=== PATIENT | male | born 1965 | race Caucasian/White ===

== ENCOUNTER 2022-06-24 19:56 | Inpatient (IN) | payer OTHER, BC, SELFPAY ==
[2022-06-24] VITALS (23 sets, daily range): BP systolic 118–141; BP diastolic 71–85; PULSE 69–90; RESP 11–20; TEMP 36.6; O2SAT 100
--- NOTE | ~2022-06-24 | CT_ITS ---
EXAMINATION: CTA abdomen pelvis DATE: 06/25/2022 14:25 INDICATION: Back pain status post cardiac catheterization TECHNIQUE: Computed tomographic angiography (CTA) of the abdomen and pelvis was performed with 100 mL Omnipaque-350 intravenous contrast. Maximum intensity projection 3D-reconstructions of the aorta and other arteries were constructed by the technologist on a separate workstation. The dose-length produ ct (DLP) was 1276.54 mGy-cm. Automated exposure control and iterative reconstruction technique were e mployed. COMPARISON: None. FINDINGS: Minimal dependent atelectasis is present in the lung bases. The heart size is normal. Stone s are present in the nondistended gallbladder. The liver is diffusely low in attenuation when compare d with the spleen, consistent with hepatic steatosis. The spleen, pancreas, and adrenal glands are no rmal. Cysts of the kidneys measure up to 1.5 cm on the left. There is a 1.1 cm soft tissue attenuatio n lesion of the right kidney There is calcified atherosclerosis of the aorta and many of the other ar teries. There is a moderate volume of contrast in the urinary bladder from cardiac catheterization. A catheter is present in the right femoral artery with its tip ending in the abdominal aorta. There is a small amount of infiltration in the right groin soft tissues related to catheterization. There is mild lumbar spondylosis. The celiac axis, superior mesenteric artery, and inferior mesenteric artery are normal at their origi ns. Single renal arteries are present. There is no aneurysm or dissection of the aorta. IMPRESSION: 1. No CT correlate for the patient's symptoms. 2. Cholelithiasis without evidence of cholecystitis. 3. Indeterminate soft tissue attenuation lesion of the right kidney. Follow-up by CT or MRI without a nd with contrast is recommended. Reviewed, dictated and finalized at location A. IMPRESSION: 1. No CT correlate for the patient's symptoms. 2. Cholelithiasis without evidence of cholecystitis. 3. Indeterminate soft tissue attenuation lesion of the right kidney. Follow-up by CT or MRI without and with contrast is recommended.
--- NOTE | ~2022-06-24 | XR_ITS ---
EXAMINATION: XR chest 2V DATE: 06/24/2022 20:41 INDICATION: Chest pain TECHNIQUE: PA and lateral views of the chest were obtained. COMPARISON: None FINDINGS: The lungs are clear with no focal airspace opacities, pulmonary edema, pleural effusion or pneumothor ax. The cardiomediastinal silhouette is normal. Moderate to severe upper thoracic spondylosis. IMPRESSION: 1. No acute cardiopulmonary disease. Reviewed, dictated and finalized at location A.
--- NOTE | 2022-06-24 20:00 | ECG_ITS ---
Measurements Intervals [place] Rate: 85 P: 37 DE: 144 QRS: 14 QRSD: 106 T: -11 QT: 379 QTc: 452 Interpretive Statements SINUS RHYTHM BORDERLINE R WAVE PROGRESSION, ANTERIOR LEADS INFERIOR INFARCT, AGE INDETERMINATE ABNORMAL ECG NO PREVIOUS ECG AVAILABLE FOR COMPARISON Electronically Signed On 06-24-2022 20:16:50 CDT by Cal Warren D.O.
[2022-06-24] MEDS: ASPIRIN 81 MG CHEWABLE TABLET 324 MG PO (21:34)
[2022-06-24 21:35] LABS: Basophils Percent Auto 0.2 % (0.2-1.2); Eosinophils Absolute Auto 0.3 K/mm3 (0-0.3); Eosinophils Percent Auto 4.9 % (0-4.4); Hematocrit 43.9 % (42.0-52.0); Immature Granulocyte Absolute 0.04 K/mm3 (0.00-0.031); Immature Granulocyte Percent A 0.6 % (0-0.5); Lymphocytes Absolute Auto 1.86 K/mm3 (0.9-3.2); Lymphocytes Percent Auto 29.5 % (18.3-44.2); Mean Corpuscular HGB Conc 34.2 g/dl (32-36); Mean Corpuscular Hemoglobin 30.8 pg (26-34); Mean Corpuscular Volume 90.1 fl (80-100); Mean Platelet Volume 9.6 fl (7.4-10.4); Monocytes Absolute Auto 0.6 K/mm3 (0.1-0.6); Monocytes Percent Auto 8.9 % (2.6-8.5); Neutrophils Absolute Auto 3.5 K/mm3 (1.3-6.7); Neutrophils Percent Auto 55.9 % (45.5-73.1); Platelet Count Result 195 k/mm3 (150-375); Red Blood Count 4.87 M/mm3 (4.6-6.20); Red Cell Distribution Width 12.6 % (11.5-14.5); White Blood Count 6.3 K/mm3 (4.5-10.0)
--- NOTE | 2022-06-24 21:38 | ED.CHESTPAIN ---
HPI - Chest Pain General Chief Complaint: Chest Pain Stated Complaint: Chest Pain Time Seen by Provider: 06/24/22 21:16 Source: RN notes reviewed History of Present Illness HPI narrative: Patient presents emergency department from home for chest pain. Patient states that this evening around 6:30 PM he was sitting watching TV when he developed a pressure across his bilateral chest that radiated up into his bilateral jaw states that it was associated with nausea he states the pain is now resolved it lasted for approximately 30 minutes he states that he had no fevers or chills no shortness of breath. Denies any abdominal pain denies history of coronary artery disease but does note a history of a murmur Related Data Allergies Allergy/AdvReac Type Severity Reaction Status Date / Time No Known Allergies Allergy Verified 06/24/22 21:41 Review of Systems Review of Systems: Gen.: Denies fevers or chills ENT: Denies congestion Respiratory: Denies shortness of breath or cough CV: See HPI GI: Denies abdominal pain, emesis or diarrhea nausea Musculoskeletal: Denies back pain or muscle pain Neuro: Denies numbness, tingling, weakness or focal weakness Skin: Denies rash Except as documented, all other systems reviewed and negative [facility] Past Medical History Medical History (Updated 06/24/22 @ 22:37 by Charles Ashley DO) Diabetes mellitus Hypercholesterolemia Hypertension Social History Social History (Updated 06/24/22 @ 21:40 by Charles Ashley DO) Smoking status: Never smoker Exam Narrative: APPEARANCE: No acute distress, nontoxic, resting in bed EYES: EOMI HEENT: Normocephalic, atraumatic, OMM RESPIRATORY: No respiratory distress Clear to auscultation bilaterally with no rhonchi wheezing or rales. CARDIOVASCULAR: Regular rate and rhythm without murmurs rubs or gallops. ABDOMINAL: Soft, nontender, nondistended, no rebound or guarding MUSCULOSKELETAl: Moves all extremities. No clubbing, cyanosis or edema. NEURO: Awake and alert. Following commands, speech normal, no focal deficits SKIN:: Warm, dry. No rashes lesions or abrasions PSYCHIATRIC: Normal affect/mood, Course Course Emergency Course: Discussed with Dr. Brunson for cardiology presentation work-up agrees with consult recommends patient received single dose of Lovenox NPO after midnight Discussed with Dr. Hopen agrees with admission Discussed with patient and family results of workup and diagnosis. Discussed need for admission. Patient and family understand and agree to current treatment plan Vital Signs Vital signs: Vital Signs Temperature 97.8 F 06/24/22 20:13 Pulse Rate 88 06/24/22 20:13 Respiratory Rate 18 06/24/22 20:13 Blood Pressure 139/77 06/24/22 20:13 Pulse Oximetry 100 06/24/22 20:13 Oxygen Delivery Room Air 06/24/22 20:13 Temperature 97.8 F 06/24/22 20:13 Pulse Rate 86 06/24/22 22:15 Respiratory Rate 19 06/24/22 22:15 Blood Pressure 132/83 06/24/22 22:01 Pulse Oximetry 100 06/24/22 20:13 Oxygen Delivery Room Air 06/24/22 21:36 MDM - Chest Pain Lab Data Result diagrams: 06/24/22 21:31 06/24/22 21:31 Labs: Lab Results 06/24/22 06/24/22 06/24/22 Range/Units 21:31 21:31 21:31 WBC 6.3 (4.5-10.0) K/mm3 RBC 4.87 (4.6-6.20) M/mm3 Hgb 15.0 (14.0-18.0) g/dL Hct 43.9 (42.0-52.0) % MCV 90.1 (80-100) fl MCH 30.8 (26-34) pg MCHC 34.2 (32-36) g/dl RDW 12.6 (11.5-14.5) % Plt Count 195 (150-375) k/mm3 MPV 9.6 (7.4-10.4) fl Immature Gran % (Auto) 0.6 H (0-0.5) % Neut % (Auto) 55.9 (45.5-73.1) % Lymph % (Auto) 29.5 (18.3-44.2) % [place] % (Auto) 8.9 H (2.6-8.5) % Eos % (Auto) 4.9 H (0-4.4) % Baso % (Auto) 0.2 (0.2-1.2) % Lymph # (Auto) 1.86 (0.9-3.2) K/mm3 [place] # (Auto) 0.6 (0.1-0.6) K/mm3 Eos # (Auto) 0.3 (0-0.3) K/mm3 Baso # (Auto) 0.0 (0.0-0.1) K/mm3 Abs Immat
--- NOTE | 2022-06-24 21:40 | ECG_ITS ---
Measurements Intervals [place] Rate: 79 P: 43 ME: 158 QRS: 13 QRSD: 94 T: 29 QT: 372 QTc: 428 Interpretive Statements SINUS RHYTHM BORDERLINE R WAVE PROGRESSION, ANTERIOR LEADS CONSIDER INFERIOR INFARCT, AGE INDETERMINATE BASELINE WANDER- AVF ABNORMAL ECG COMPARED TO ECG 06/24/2022 20:06:24 NO SIGNIFICANT CHANGES Electronically Signed On 06-25-2022 7:08:07 CDT by Cal Warren D.O.
[2022-06-24 21:46] LABS: Alanine Aminotransferase 38 U/L (6-50); Alkaline Phosphatase 56 U/L (38-126); Anion Gap 18 mmol/L (8-16); Aspartate Amino Transferase 30 U/L (17-59); Bilirubin,Total 0.5 mg/dL (0.2-1.3); Blood Urea Nitrogen 17 mg/dL (9-20); Calcium 9.7 mg/dL (8.4-10.2); Carbon Dioxide 21 mmol/L (22-30); Chloride 102 mmol/L (98-107); Estimated CRCL calculation 74 ml/min; Estimated Glomerular Filt Rate > 60; Glucose 190 mg/dL (65-110); Lipase 100 U/L (23-300); Potassium 3.6 mmol/L (3.4-5.0); Sodium 141 mmol/L (137-145)
[2022-06-24 21:49] LABS: INR 1.1; Partial Thromboplastin Time 28.8 SECONDS (22.3-36.8); Prothrombin Time 13.6 Seconds (11.1-14.7)
[2022-06-24 22:02] LABS: Troponin I 0.045 ng/mL (0.000-0.034)
[2022-06-24 22:48] LABS: SARS-CoV-2 RNA PCR Negative
[2022-06-24] MEDS: ENOXAPARIN 100 MG/ML SYRINGE 90 MG SUB-Q (22:50)
[2022-06-24 23:31] LABS: Troponin I 0.087 ng/mL (0.000-0.034)
[2022-06-25] VITALS (48 sets, daily range): BP systolic 99–134; BP diastolic 59–88; PULSE 54–89; RESP 10–20; TEMP 36.3–37.1; O2SAT 92–100; BMI 30.3; BMI 28.5
--- NOTE | 2022-06-25 01:36 | ADMGEN ---
This patient, Johanna Barbosa, was admitted to IMU Room 209-01 at 0136. Patient/family oriented to hospital policies and general routines including ID bracelet, bed and alarms, visiting hours, pain management, procedures, bathroom and other care routines, personal items, smoking policy, room service/diet, and visiting hours. Information on how to activate the Rapid Response Team has been discussed. Patient/Family are encouraged to report perceived risks to care and to ask questions if they do not understand what they are told or what they should do.
[2022-06-25 04:18] LABS: Basophils Percent Auto 0.2 % (0.2-1.2); Eosinophils Absolute Auto 0.3 K/mm3 (0-0.3); Eosinophils Percent Auto 5.1 % (0-4.4); Hematocrit 38.9 % (42.0-52.0); Hemoglobin 13.5 g/dL (14.0-18.0); Immature Granulocyte Absolute 0.04 K/mm3 (0.00-0.031); Immature Granulocyte Percent A 0.7 % (0-0.5); Lymphocytes Absolute Auto 1.93 K/mm3 (0.9-3.2); Lymphocytes Percent Auto 35.4 % (18.3-44.2); Mean Corpuscular HGB Conc 34.7 g/dl (32-36); Mean Corpuscular Hemoglobin 31.1 pg (26-34); Mean Corpuscular Volume 89.6 fl (80-100); Mean Platelet Volume 9.7 fl (7.4-10.4); Monocytes Absolute Auto 0.5 K/mm3 (0.1-0.6); Monocytes Percent Auto 9.2 % (2.6-8.5); Neutrophils Absolute Auto 2.7 K/mm3 (1.3-6.7); Neutrophils Percent Auto 49.4 % (45.5-73.1); Platelet Count Result 181 k/mm3 (150-375); Red Blood Count 4.34 M/mm3 (4.6-6.20); Red Cell Distribution Width 12.6 % (11.5-14.5); White Blood Count 5.5 K/mm3 (4.5-10.0)
[2022-06-25 04:28] LABS: Alanine Aminotransferase 32 U/L (6-50); Albumin Level 3.9 g/dL (3.5-5.1); Alkaline Phosphatase 52 U/L (38-126); Anion Gap 9 mmol/L (8-16); Aspartate Amino Transferase 26 U/L (17-59); Bilirubin,Total 0.4 mg/dL (0.2-1.3); Blood Urea Nitrogen 17 mg/dL (9-20); Calcium 8.9 mg/dL (8.4-10.2); Carbon Dioxide 23 mmol/L (22-30); Chloride 104 mmol/L (98-107); Estimated CRCL calculation 81 ml/min; Estimated Glomerular Filt Rate > 60; Glucose 170 mg/dL (65-110); Potassium 3.8 mmol/L (3.4-5.0); Sodium 136 mmol/L (137-145)
[2022-06-25 04:42] LABS: Troponin I 0.122 ng/mL (0.000-0.034)
--- NOTE | 2022-06-25 04:46 | PM.IMHP ---
H&P: HPI History of Present Illness Date/Time: 06/25/22 04:46 Chief Complaint: Chest pain Narrative: 57-year-old male with past medical history of essential hypertension, hyperlipidemia, and type 2 diabetes mellitus who presented to the ER with chest pain. The patient reports that he was sitting and watching TV around 18:30 when he began having discomfort and is bilateral neck. This discomfort was also associated with some chest discomfort. The pain felt similar to when he would have indigestion in his abdomen but it was more up in his chest. He reports that the pain radiated at up into his bilateral old jaw has and was associated with some nausea. He denied any diaphoresis. The symptoms lasted for about 30 minutes and resolved shortly after he arrived the ER. He had never had any episodes of chest pain prior. He does have a history of a heart murmur that was discovered a few years ago his last echocardiogram was a couple of years ago. He does not remember which valve is causing his heart murmur. He denies history of CHF. he does have diabetes but does not know what his most recent hemoglobin A1c was. His hemoglobin A1c was checked this past week at the [facility] in [place]. 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 His physical did not include a stress test. He denies any eliciting or relieving factors for his discomfort. He recently had a sleep study which demonstrated moderate obstructive sleep apnea. He is waiting to receive his CPAP from the [place]. He denies any known complications from diabetes such as diabetic peripheral neuropathy or retinopathy. Review of Systems Review of Systems: 12 systems were reviewed with pertinent positives and negatives per HPI. Except as documented in the HPI, all other systems were reviewed and are negative. [facility] Past Medical History Medical History (Updated 06/25/22 @ 04:56 by Beatris Fox DO) Depression Diabetes mellitus Erectile dysfunction GERD (gastroesophageal reflux disease) Hypercholesterolemia Hypertension Obstructive sleep apnea PTSD (post-traumatic stress disorder) Surgical History Surgical History (Updated 06/25/22 @ 04:52 by Beatris Fox DO) History of appendectomy History of colonoscopy with polypectomy History of dental surgery Dental implants Family History Family History Father Myocardial infarct, Onset Age: 75 Mother COPD (chronic obstructive pulmonary disease) Smoking Cor pulmonale, chronic Hernia Diabetes mellitus Knee joint replacement by other means Hip joint replacement status Asthma CHF (congestive heart failure) Social History Social History (Updated 06/25/22 @ 07:54 by Beatris Fox DO) Social History: The patient worked as a [employer] before he moved on to the [employer]. He retired from the [employer] October 2021. He served in the [employer] for 27 years but retired May 27, 2022. He is and has a son who is 25 and her daughter was 20. He smoked 1 pack of cigarettes per week for approximately 9 years but quit smoking at the age 25. He drinks 2 beers a couple of times a week. Denies any illicit substance use. Code status: Full code Surrogate decision maker: Faye () Smoking status: Never smoker Alcohol intake: current Drinks per week: 2 Substance use: never Spiritual care concerns: No Comments Her the patient reports that his mother medical problems were all related to her dental treatment coordinator when she lived in [place] during World War 2 and had to live under ground. She ended up with cor pulmonale due to her lung disease from environmental exposures. Meds Home Medications and Allergies Home Medications Medication Instructions Recorded Confirmed Type acetaminophen 500 mg tablet 1,000 mg PO BID 06/25/22 06/25/22 History (Acetaminophen Extra
--- NOTE | 2022-06-25 05:45 | PC.NURSE ---
I HAVE MONITORED THE MEDICATION DISPENSING AND CHARTING DONE BY ONEL FAYE RN LICENSE PENDING AND I AGREE WITH EVERYTHING.
--- NOTE | 2022-06-25 08:46 | PM.CNCAR ---
Assessment and Plan Assessment and plan (1) Non-ST elevation [place] (NSTEMI): Code(s): I21.4 - Non-ST elevation (NSTEMI) myocardial infarction Status: Acute Plan This is a 57-year-old man who has no overt history of coronary disease in the past but has risk factors obviously including hypertension diabetes and dyslipidemia. He quit smoking many years ago. There is no family history of premature coronary disease. Because of his modest troponin rise he should undergo an ischemic evaluation with a coronary angiogram in my opinion. He understands this and is agreeable. I will get this procedure on the schedule for later today. Further recommendations will be pending those findings Da Stringer MD [facility] History of Present Illness History of Present Illness Consult date/time: 06/25/22 08:46 Consult reason: chest pain Reason For Visit: NSTEMI Narrative: This is a 57-year-old man I am seeing this morning at the request of the hospitalist because of what appears to be evidence of acute coronary syndrome. The patient is a comfortable this morning and offers no complaints. He reports that he came to the hospital last evening because of some chest and jaw pain that occurred while he was at home. He was simply at home seated relaxing watching television while his was preparing dinner. He began to experience a central substernal pain that he has to describes as a burning sensation shortly after that there was radiation of the pain up into the jaw. He states the jaw pain was rather severe. There was no associated diaphoresis shortness of breath or radiation of the pain anywhere else. The discomfort waxed and waned for a little while finally he informed his about the symptoms he tried taking some antacids with not much relief later a short time he came to the emergency room for evaluation. Apparently by the time he got here the symptoms had resolved spontaneously. His electrocardiogram was normal in the emergency room his troponin level initially was essentially normal at but has risen slightly to 0.1. He was given some Lovenox last night and in that setting I am seeing him in consultation this morning. The patient again denies any significant history of coronary disease he does state that his physician who is up in [place] has told him that he has a cardiac murmur but has not made a significant issue out of that. He does have a history of hypertension non insulin-dependent diabetes and dyslipidemia. He reached just retired a couple of weeks ago from a career in the [employer]. His medical care has been at the [facility] up in [place]. Review of Systems Constitutional: Constitutional: Reports no additional constitutional complaints Eyes: Eyes: Reports no additional eye complaints ENT: Reports system reviewed and no additional complaints, except as documented Cardiovascular: Cardiovascular: Reports as per HPI Respiratory: Respiratory: Reports no additional respiratory complaints Gastrointestinal: Gastrointestinal: Reports no additional gastrointestinal complaints Musculoskeletal: Musculoskeletal: Reports no additional musculoskeletal complaints Integumentary/Breasts: Skin/Breast: Reports system reviewed and no additional complaints, except as docu Neurologic: Reports system reviewed and no additional complaints, except as documented Endocrine: Endocrine: Reports no additional endocrine complaints Hematologic/Lymphatic: Hematologic/Lymphatic: Reports no additional hematologic/lymphatic complaints Allergic/Immunologic: Allergic/Immunologic: Reports no additional allergic/immunologic complaints [facility] Past Medical History Medical History (Updated 06/25/22 @ 04:56 by Beatris Fox DO) Depression Diabetes mellitus Erectile dysfunction GERD (gastroesophageal reflux disease) Hypercholesterolemia Hypertension Obstructive sleep apnea PTSD (post-traumatic stress disorder) Surgical History Surgical Histo
[2022-06-25 09:29] LABS: Glucose Point of Care 183 mg/dl (65-105)
--- NOTE | 2022-06-25 10:49 | WPDMODSED ---
Moderate Sedation Note-Pt Data Patient Data Diagnosis: Acute coronary syndrome Present Complaint: episode of chest and jaw pain last evening Procedure to be performed/Plan: left heart catheterization Allergies Allergy/AdvReac Type Severity Reaction Status Date / Time No Known Allergies Allergy Verified 06/24/22 21:41 Home Medications Medication Instructions Recorded Confirmed Type acetaminophen 500 mg tablet 1,000 mg PO BID 06/25/22 06/25/22 History (Acetaminophen Extra Strength) amlodipine 10 mg tablet 10 mg PO DAILY 06/25/22 06/25/22 History atorvastatin 40 mg tablet 40 mg PO HS 06/25/22 06/25/22 History empagliflozin 25 mg tablet 25 mg PO DAILY 06/25/22 06/25/22 History lisinopril 40 mg tablet 40 mg PO DAILY 06/25/22 06/25/22 History metformin 1,000 mg tablet 1,000 mg PO BIDWMEAL 06/25/22 06/25/22 History omeprazole 20 mg capsule,delayed 20 mg PO DAILY 06/25/22 06/25/22 History release pioglitazone 45 mg tablet 45 mg PO DAILY 06/25/22 06/25/22 History sertraline 100 mg tablet 100 mg PO DAILY 06/25/22 06/25/22 History sildenafil 100 mg tablet 100 mg PO DAILY PRN Sexual Activity 06/25/22 06/25/22 History tadalafil 10 mg tablet 10 mg PO DAILY PRN Sexual Activity 06/25/22 06/25/22 History trazodone 100 mg tablet 100 mg PO HS 06/25/22 06/25/22 History Current Medications: Active Medications Acetaminophen (Acetaminophen 500 Mg Tablet) 1,000 mg PO BID [facility] Amlodipine Besylate (Amlodipine Besylate 5 Mg Tablet) 10 mg PO DAILY [facility] Aspirin (Aspirin 81 Mg Enteric Tablet) 81 mg PO QAM [facility] Atorvastatin Calcium (Atorvastatin 40 Mg Tablet) 40 mg PO HS [facility] Dextrose (Dextrose 50% 25 Gm/50 Ml Syringe) 12.5 gm IV PUSH PRN PRN; Protocol PRN Reason: Hypoglycemia Empagliflozin (Empagliflozin 25 Mg Tablet) 25 mg PO DAILY [facility] Glucagon (Glucagon For Inj 1 Mg Vial) 1 mg IM PRN PRN; Protocol PRN Reason: Hypoglycemia Glucose (Glucose Oral Gel 15 Gm Of Glucse In 37.5 Gm Tube) 15 gm PO PRN PRN; Protocol PRN Reason: Hypoglycemia Dextrose (Dextrose 5% 1,000 Ml) 1,000 mls @ 100 mls/hr IVPB PRN PRN; Protocol PRN Reason: Hypoglycemia Insulin Aspart (Insulin Aspart (*Bkc) 100 Units/Ml) 3 - 6 units SUB-Q TIDWM [facility]; Protocol Last Admin: 06/25/22 09:39 Dose: Not Given Lisinopril (Lisinopril 20 Mg Tablet) 40 mg PO DAILY [facility] Metformin HCl (Metformin Hcl 500 Mg Tablet) 1,000 mg PO BIDWM [facility] Last Admin: 06/25/22 09:41 Dose: Not Given Pantoprazole Sodium (Pantoprazole 40 Mg Tablet) 40 mg PO QAM [facility] Pioglitazone HCl (Pioglitazone Hcl 45 Mg Tablet) 45 mg PO DAILY [facility] Sertraline HCl (Sertraline Hcl 50 Mg Tablet) 100 mg PO DAILY [facility] Trazodone HCl (Trazodone Hcl 50 Mg Tablet) 100 mg PO HS [facility] Sedation/Anesthesia: No previous sedation/anesthesia problems (including family history). [facility] Past Medical History Medical History (Updated 06/25/22 @ 04:56 by Beatris Fox DO) Depression Diabetes mellitus Erectile dysfunction GERD (gastroesophageal reflux disease) Hypercholesterolemia Hypertension Obstructive sleep apnea PTSD (post-traumatic stress disorder) Surgical History Surgical History (Updated 06/25/22 @ 04:52 by Beatris Fox DO) History of appendectomy History of colonoscopy with polypectomy History of dental surgery Dental implants Family History Family History (Updated 06/25/22 @ 07:56 by Beatris Fox DO) Father Myocardial infarct, Onset Age: 75 Mother COPD (chronic obstructive pulmonary disease) Smoking Cor pulmonale, chronic Hernia Diabetes mellitus Knee joint replacement by other means Hip joint replacement status Asthma CHF (congestive heart failure) Social History Social History (Updated 06/25/22 @ 07:54 by Beatris Fox DO) Social History: The patient worked as a [employer] before he moved on to the [employer]. He retired from the [employer] October 2021. He served in the [email or web address] for 27 years but retired May 27, 2022. He is and bledsoe
--- NOTE | 2022-06-25 12:43 | ECG_ITS ---
Measurements Intervals [place] Rate: 57 P: 52 [place]: 161 QRS: 9 QRSD: 91 T: -11 QT: 418 QTc: 410 Interpretive Statements SINUS BRADYCARDIA DELAYED PRECORDIAL R/S TRANSITION CONSIDER INFERIOR INFARCT, AGE INDETERMINATE ABNORMAL ECG COMPARED TO ECG 06/24/2022 21:59:07 HEART RATE HAS DECREASED Electronically Signed On 06-25-2022 13:35:19 CDT by Cal Warren D.O.
--- NOTE | 2022-06-25 12:49 | WPDCARDPROC ---
Cardiac Cath Procedure Note Date of procedure:: 06/25/22 Performing physician:: Da Stringer MD Indication:: acute coronary syndrome Brief clinical history:: this is a 57-year-old man with hypertension diabetes and dyslipidemia who entered the hospital with several episodes of ischemic type chest pain. Electrocardiogram for had no significant abnormalities there was a very modest troponin rise. In this setting angiography was recommended. Procedure Procedure performed:: Left ventriculogram coronary angiogram PCI withDES to the proximal right coronary artery and PTCA to the distal right coronary artery Sedation/Medication given:: fentanyl 50 mg Versed 2 mg Zofran 4 mg case start time 10:58 a.m. case end time 12:38 p.m. Access site:: right femoral artery Estimated blood loss:: 100 cc Procedure note:: patient was brought to the cardiac catheterization lab in the postabsorptive state where the right femoral triangle was prepped and. Anesthesia was provided with 1% lidocaine infiltrated locally. Using the modified Seldinger technique the right femoral artery was punctured and a 5 Polish vascular sheath was placed. After this I used a 5 Polish angled pigtail catheter to document left-sided hemodynamics and to perform a left ventriculogram in the [place] projection. Following this I used a standard 5 Polish FL4 catheter to engage and inject the left coronary artery in multiple projections. Following this attempts to advance the right coronary catheter resulted in some resistance in the abdominal aorta. I ended up using a long exchange wire exchanging to a 5 Polish 45 cm sheath which then allowed the right coronary catheter to be easily advanced to the ascending aorta and used for right coronary angiography. Following this the cineangiograms were reviewed and PCI of the right coronary artery was recommended. Prior to PCI I used a guidewire to exchange for a 45 cm 6 Polish sheath. The patient received aspirin and then 600 mg of oral clopidogrel. He was anticoagulated with a bolus bivalirudin for this intervention. The intervention took place as described below. The sheath was then sutured into position the patient was taken to the holding area in stable condition. There was no evidence of groin hematoma upon the cardiac catheterization lab. Findings:: Hemodynamics: Central aortic pressure was 146/82 left ventricle 146 over for end-diastolic pressure 12 there is no gradient on pullback across the aortic valve. Left ventricle: The LV appears to be normal in size all segments contract appropriately the global ejection fraction measures to be 55-60% by visual estimation. Prior to angiography it is clear that both left and right coronary arteries are significantly calcified vessels. The left main coronary artery is medium in caliber and widely patent the left anterior descending is a large caliber vessel extending down to around the apex providing a significant amount of the inferior wall as well. There is mild irregularity in the LAD but no more than 20-30% stenosis in the midportion of the artery. The circumflex is a moderate caliber vessel giving rise to a very high proximal major OM breath branch after this there is AV groove portion of the circumflex and then a more distal posterior branch. There is an eccentric stenosis in the proximal circumflex which appears to be about 70% stenosis in the [place] projections. in the straight caudal projection there appears to be greater than 90% stenosis immediately after the 1st OM branch takes its origin. The right coronary artery is medium in caliber and dominant to the posterior wall. The RPDA is relatively small going to the long LAD described above. There is high-grade stenosis of 99% in the 3rd portion of the right coronary artery. The proximal and ostial segment of the right coronary has moderate 60% stenosis. The proximal portion of the vessel is also
--- NOTE | 2022-06-25 14:00 | SUR.PHASEII ---
spoke with dr jose about patient's back pain, orders for michael for fentanyl place, as well as a CT of abdomen and aorta. patient placed on transport monitor and traveled via bed, [facility] flat, with rn x3. angiomax infusing w/ out issues. sheath wnl
[2022-06-25] MEDS: fentaNYL CITRATE INJ (*CRX) 100 MCG/2 ML VIAL 50 MCG IV PUSH (14:05)
[2022-06-25] MEDS: ACETAMINOPHEN 500 MG TABLET 1000 MG PO (14:05)
[2022-06-25] MEDS: SODIUM CHLORIDE 0.9% IV 1,000 ML 125 ML IV CONT (14:30)
--- NOTE | 2022-06-25 17:20 | PC.NURSE ---
Spoke with Dr. Zavala regarding patient's back pain. Pt will be on bedrest lying flat until 2300 per post-cath orders. New order for [place] 5mg PO q4h PRN for pain.
--- NOTE | 2022-06-25 17:25 | PC.NURSE ---
Pt returned from [facility] via bed.
--- NOTE | 2022-06-25 17:43 | PCRCNOTE ---
Pt. was going to try one of our CPAP machines tonight but changed his mind. He had a sleep study recently but does not have a machine at home yet.
[2022-06-25] MEDS: HYDROcodone/acetaminophen (*CRX) 5-325 MG TABLET 1 TAB PO (17:50)
[2022-06-25] MEDS: PIOGLITAZONE HCL 45 MG TABLET PO (17:51)
[2022-06-25] MEDS: PANTOPRAZOLE 40 MG TABLET PO (17:51)
[2022-06-25] MEDS: SERTRALINE HCL 50 MG TABLET 100 MG PO (17:51)
[2022-06-25] MEDS: lisinopriL 20 MG TABLET 40 MG PO (17:51)
[2022-06-25] MEDS: EMPAGLIFLOZIN 25 MG TABLET PO (17:52)
[2022-06-25] MEDS: metFORMIN HCL 500 MG TABLET 1000 MG PO (17:52)
[2022-06-25 18:14] LABS: Glucose Point of Care 145 mg/dl (65-105)
[2022-06-25 20:45] LABS: Glucose Point of Care 194 mg/dl (65-105)
[2022-06-25] MEDS: ATORVASTATIN 40 MG TABLET 80 MG PO (21:17)
[2022-06-25] MEDS: METOPROLOL TARTRATE 50 MG TAB PO (21:18)
[2022-06-25] MEDS: traZODone HCL 50 MG TABLET 100 MG PO (21:19)
--- NOTE | 2022-06-25 23:16 | PC.NURSE ---
Patient bedrest is complete. Ambulated to the bathroom without difficulty. Rt. groin remains dry, no hematoma. Tolerated well, denies pain.
[2022-06-26] VITALS (9 sets, daily range): BP systolic 99–107; BP diastolic 51–63; PULSE 51–75; RESP 12–16; TEMP 36.1–36.6; O2SAT 95–100
--- NOTE | 2022-06-26 05:11 | ECG_ITS ---
Measurements Intervals [place] Rate: 66 P: 63 KS: 157 QRS: 9 QRSD: 105 T: -13 QT: 419 QTc: 441 Interpretive Statements SINUS RHYTHM POSSIBLE INFERIOR MYOCARDIAL INFARCTION , OF INDETERMINATE AGE [30 ms Q WAVE IN II/aVF] DELAYED PRECORDIAL R/S TRANSITION COMPARED TO ECG 06/25/2022 13:06:57 SINUS RHYTHM NOW PRESENT Electronically Signed On 06-26-2022 20:21:26 CDT by Alhaji Curry M.D.
[2022-06-26 09:10] LABS: Glucose Point of Care 159 mg/dl (65-105)
[2022-06-26] MEDS: metFORMIN HCL 500 MG TABLET 1000 MG PO (09:14)
[2022-06-26] MEDS: ACETAMINOPHEN 500 MG TABLET 1000 MG PO (09:15)
[2022-06-26] MEDS: METOPROLOL TARTRATE 50 MG TAB PO (09:16)
[2022-06-26] MEDS: PANTOPRAZOLE 40 MG TABLET PO (09:17)
[2022-06-26] MEDS: EMPAGLIFLOZIN 25 MG TABLET PO (09:18)
[2022-06-26] MEDS: SERTRALINE HCL 50 MG TABLET 100 MG PO (09:18)
[2022-06-26] MEDS: lisinopriL 20 MG TABLET 40 MG PO (09:18)
[2022-06-26] MEDS: ASPIRIN 81 MG CHEWABLE TABLET PO (09:19)
[2022-06-26] MEDS: PIOGLITAZONE HCL 45 MG TABLET PO (09:20)
[2022-06-26] MEDS: CLOPIDOGREL BISULFATE 75 MG TABLET PO (10:34)
[2022-06-26 12:50] LABS: Glucose Point of Care 174 mg/dl (65-105)
--- NOTE | 2022-06-26 14:28 | PM.DS ---
DS: Admitting Diagnosis Discharge Date 06/26/2022 Admitting Diagnosis Chest pain DS: Discharge Diagnosis Discharge Diagnosis (1) Non-ST elevation [place] (NSTEMI): Code(s): I21.4 - Non-ST elevation (NSTEMI) myocardial infarction Status: Acute Assessment and Plan: Patient received therapeutic Lovenox and full-dose aspirin in the ER. Cardiology has been consulted. Troponins are still trending up gradually. Patient will be NPO until evaluated by Cardiology for possible procedure. (2) Diabetes mellitus: Qualifiers: Diabetes mellitus type: type 2 Diabetes mellitus penitentiary insulin use: without terminal manager use Diabetes mellitus complication status: with circulatory complication Diabetes mellitus complication detail: with other circulatory complications Qualified Code(s): E11.59 - Type 2 diabetes mellitus with other circulatory complications Code(s): E11.9 - Type 2 diabetes mellitus without complications Status: Acute Assessment and Plan: Patient has evidence of a non STEMI and has concurrent hyperglycemia. Patient on benefit from titration of his hypoglycemic agents as outpatient. Patient has a hemoglobin A1c that is pending from outpatient labs with the [place]. while the patient is hospitalized the patient will be placed on sliding scale insulin, Accu-Cheks and hypoglycemia protocol. (3) Hypercholesterolemia: Code(s): E78.00 - Pure hypercholesterolemia, unspecified Status: Acute Assessment and Plan: Lipid panel has been ordered with a.m. labs. Will continue home atorvastatin. (4) Hypertension: Code(s): I10 - Essential (primary) hypertension Status: Acute Assessment and Plan: Blood pressure stable well controlled continue home Norvasc and lisinopril. Plan Patient has been admitted as observation status. DS: Summary Hospital Course Reason for hospitalization: Chest pain Narrative: 57-year-old male with past medical history of essential hypertension, hyperlipidemia, and type 2 diabetes mellitus who presented to the ER with chest pain.? The patient reports that he was sitting and watching TV around 18:30 when he began having discomfort and is bilateral neck.? This discomfort was also associated with some chest discomfort.? The pain felt similar to when he would have indigestion in his abdomen but it was more up in his chest.? He reports that the pain radiated at up into his bilateral old jaw has and was associated with some nausea.? He denied any diaphoresis.? The symptoms lasted for about 30 minutes and resolved shortly after he arrived the ER.? He had never had any episodes of chest pain prior.? He does have a history of a heart murmur that was discovered a few years ago his last echocardiogram was a couple of years ago.? He does not remember which valve is causing his heart murmur.? He denies history of CHF.? he does have diabetes but does not know what his most recent hemoglobin A1c was.? His hemoglobin A1c was checked this past week at the [facility] in [place].? He reports that he had a full physical as part of his discharge from the [facility] last week.? His physical did not include a stress test.? He denies any eliciting or relieving factors for his discomfort. He recently had a sleep study which demonstrated moderate obstructive sleep apnea.? He is waiting to receive his CPAP from the [place]. He denies any known complications from diabetes such as diabetic peripheral neuropathy or retinopathy. Hospital Course: 57-year-old male with history of diabetes, hypertension presented emergency department with complaint chest patient had elevated tropes there was no significant change on EKG seen by patient services coordinator commended cardiac catheterization which showed patient has significant coronary artery disease angioplasty and stent was placed, patient remains clinically stable has no new complaint will discharge the patient today, please, reviewed
== END 2022-06-26 15:52 | disposition home or self-care (01) | DRG 247 ==
LOC: ANHED 22:37 → ANHIMU 06-25 01:04
PROVIDERS: Specialist; Admitting Provider Internal Medicine; Emergency Provider Emergency Medicine; Visit Provider Family Medicine
PROC: 4A023N7 Measurement of Cardiac Sampling and Pressure, Left Heart, Percutaneous Approach (ICD-10-PCS; CPT 93452; principal; 2022-06-25 11:00)
PROC: 027034Z Dilation of Coronary Artery, One Artery with Drug-eluting Intraluminal Device, Percutaneous Approach (ICD-10-PCS; 2022-06-25 11:00)
DX: I21.4 Non-ST elevation (NSTEMI) myocardial infarction (principal); I25.10 Atherosclerotic heart disease of native coronary artery without angina pectoris; I10 Essential (primary) hypertension; E78.00 Pure hypercholesterolemia, unspecified; E11.9 Type 2 diabetes mellitus without complications; K21.9 Gastro-esophageal reflux disease without esophagitis; G47.33 Obstructive sleep apnea (adult) (pediatric); F32.A Depression, unspecified; F43.10 Post-traumatic stress disorder, unspecified; Z20.822 Contact with and (suspected) exposure to COVID-19; Z86.010 Personal history of colon polyps; Z87.891 Personal history of nicotine dependence
CPT/HCPCS: 36415; 71046; 74174; 80053; 82948; 83690; 84484; 85025; 85610; 85730; 93005; 93458; 96372; 99291; A9270; C1725; C1769; C1874; C1887; C1894; C9600; C9803; G0378; J0583; J1644; J1650; J2250; J2405; J3010; J7030; J7040; Q9967; U0003; U0005

== ENCOUNTER 2022-08-22 15:55 | Emergency (ER) | payer BC, OTHER, SELFPAY ==
--- NOTE | 2022-08-22 16:55 | ED.URI ---
HPI - URI/Sore Throat General Chief Complaint: Upper Respiratory Infection Stated Complaint: Fever, Sinus Time Seen by Provider: 08/22/22 16:55 Source: patient and RN notes reviewed Mode of arrival: ambulatory Limitations: no limitations History of Present Illness HPI Narrative: 57 y/o male presented for c/o fatigue, body aches, mild sinus congestion, cough, fever/chills. Onset yesterday. Endorses family is sick with similar symptoms, nephew tested positive for flu and RSV today. Denies sob, wheezing, n/v/d. Taking Mucinex. Tested negative for COVID this morning. Cardiac stent placed 06/2022 MD elicited complaint: cough Related Data Home Medications Medication Instructions Recorded Confirmed acetaminophen 500 mg tablet 1,000 mg PO BID 06/25/22 08/22/22 (Acetaminophen Extra Strength) amlodipine 10 mg tablet 10 mg PO DAILY 06/25/22 08/22/22 atorvastatin 40 mg tablet 40 mg PO HS 06/25/22 08/22/22 empagliflozin 25 mg tablet 25 mg PO DAILY 06/25/22 08/22/22 lisinopril 40 mg tablet 40 mg PO DAILY 06/25/22 08/22/22 metformin 1,000 mg tablet 1,000 mg PO BIDWMEAL 06/25/22 08/22/22 omeprazole 20 mg capsule,delayed 20 mg PO DAILY 06/25/22 08/22/22 release pioglitazone 45 mg tablet 45 mg PO DAILY 06/25/22 08/22/22 sertraline 100 mg tablet 100 mg PO DAILY 06/25/22 08/22/22 sildenafil 100 mg tablet 100 mg PO DAILY PRN Sexual Activity 06/25/22 08/22/22 tadalafil 10 mg tablet 10 mg PO DAILY PRN Sexual Activity 06/25/22 08/22/22 trazodone 100 mg tablet 200 mg PO HS 06/25/22 08/22/22 Allergies Allergy/AdvReac Type Severity Reaction Status Date / Time No Known Allergies Allergy Verified 08/22/22 16:38 Review of Systems Review of Systems: CONSTITUTIONAL: Endorses malaise, chills, sweats, fever EYES: Denies visual changes, redness, or discharge ENT: Reports rhinorrhea, denies sinus pain, otalgia, sore throat CARDIOVASCULAR: Denies chest pain, palpitations, edema RESPIRATORY: Reports cough, post nasal drainage. Denies dyspnea GASTROINTESTINAL: Denies abdominal pain, nausea, vomiting, diarrhea SKIN: Denies rash or itching MUSCULOSKELETAL: Endorses myalgia NEUROLOGIC: Denies headache PMFSH Past Medical History Medical History Depression Diabetes mellitus Erectile dysfunction GERD (gastroesophageal reflux disease) Hypercholesterolemia Hypertension Obstructive sleep apnea PTSD (post-traumatic stress disorder) Surgical History Surgical History History of appendectomy History of colonoscopy with polypectomy History of dental surgery Dental implants Family History Family History Father Myocardial infarct, Onset Age: 75 Mother COPD (chronic obstructive pulmonary disease) Smoking Cor pulmonale, chronic Hernia Diabetes mellitus Knee joint replacement by other means Hip joint replacement status Asthma CHF (congestive heart failure) Social History Social History Social History: The patient worked as a [employer] before he moved on to the [employer]. He retired from the [employer] October 2021. He served in the [employer] for 27 years but retired May 27, 2022. He is and has a son who is 25 and her daughter was 20. He smoked 1 pack of cigarettes per week for approximately 9 years but quit smoking at the age 25. He drinks 2 beers a couple of times a week. Denies any illicit substance use. Code status: Full code Surrogate decision maker: Faye () Smoking status: Never smoker Alcohol intake: current Drinks per week: 2 Substance use: never Spiritual care concerns: No Exam Narrative: GENERAL: Ill-appearing, nontoxic EYES: conjunctivae clear, clear drainage bilaterally ENT: Mucous membranes moist. TMs pearly nogueira with dull light ref
[2022-08-22 16:57] VITALS: BP 135/74; PULSE 86; RESP 20; TEMP 37.7; O2SAT 99
== END 2022-08-22 17:25 | disposition home or self-care (01) ==
PROVIDERS: Emergency Provider Nurse Practitioner Family
DX: B34.9 Viral infection, unspecified (principal); E11.9 Type 2 diabetes mellitus without complications; K21.9 Gastro-esophageal reflux disease without esophagitis; E78.00 Pure hypercholesterolemia, unspecified; I10 Essential (primary) hypertension; G47.33 Obstructive sleep apnea (adult) (pediatric); F32.A Depression, unspecified; F43.10 Post-traumatic stress disorder, unspecified
CPT/HCPCS: 87804; 99203; G0463

== ENCOUNTER 2023-09-03 22:00 | Inpatient (IN) | payer OTHER, SELFPAY ==
--- NOTE | ~2023-09-03 | XR_ITS ---
EXAMINATION: XR abdomen/kub 1V INDICATION: Ileus TECHNIQUE: Supine views of the abdomen were obtained on 2 radiographs. COMPARISON: None FINDINGS: There are dilated loops of small bowel throughout the abdomen. Gas and stool are seen in th e colon. No free intraperitoneal gas is identified. IMPRESSION: 1. Dilated small bowel, likely ileus. Reviewed, dictated and finalized at location B. S CURVATURE GAUGER
--- NOTE | ~2023-09-03 | XR_ITS ---
EXAMINATION: XR chest 1V portable INDICATION: STEMI TECHNIQUE: Portable AP chest at 0214 hours COMPARISON: 06/24/2022 FINDINGS: The lung volumes are low. Lungs are free of acute opacities. No pleural effusion or pneumot horax. The cardiomediastinal silhouette is normal. Osteoarthritis is noted in the shoulders. IMPRESSION: 1. No acute cardiopulmonary abnormality. Reviewed, dictated and finalized at location F. ETING ASSISTANT
--- NOTE | ~2023-09-03 | XR_ITS ---
EXAMINATION: XR abdomen gastric tube insert INDICATION: Nasogastric tube placement TECHNIQUE: Portable AP KUB-NG at 1157 hours COMPARISON: None available FINDINGS: The nasogastric tube is in the stomach. Multiple dilated loops of small bowel are again see n. No free intraperitoneal gas is identified. IMPRESSION: 1. Nasogastric tube in the stomach. 2. Probable ileus. Reviewed, dictated and finalized at location B. ET GRADER
--- NOTE | ~2023-09-03 | US_ITS ---
EXAMINATION: US abdomen limited DATE: 09/04/2023 18:14 INDICATION: Abdominal pain TECHNIQUE: Multiple grayscale and Doppler ultrasound images of limited portions of the abdomen were o btained. COMPARISON: CT abdomen and pelvis, same date. FINDINGS: Pancreas not well visualized. Echogenic liver parenchyma. No surface nodularity. Normal hep atopetal flow in the main portal vein. Gallbladder wall thickening to 5 mm. Small volume pericholecys tic fluid. Negative sonographic Zarco sign but this is confounded by the concurrent use of pain medi cation. IMPRESSION: Echogenic liver, most commonly due to steatosis but also can be seen with hepatitis and fibrosis. Gallbladder wall thickening and pericholecystic fluid, nonspecific findings in the context of pancrea titis. Negative sonographic Zarco sign, confounded by the concurrent use of pain medication. Reviewed, dictated and finalized at location K. ING MANAGER IMPRESSION: Echogenic liver, most commonly due to steatosis but also can be seen with hepat itis and fibrosis. Gallbladder wall thickening and pericholecystic fluid, nonspecific findings in the context of pancreatitis. Negative sonographic Zarco sign, confounded by the concurrent use of pain medi cation.
--- NOTE | ~2023-09-03 | XR_ITS ---
EXAMINATION: XR chest 1V portable INDICATION: Shortness of breath TECHNIQUE: Portable AP chest at 0856 hours COMPARISON: 09/04/2023 FINDINGS: The lung volumes are low. There are diffuse opacities throughout the right lung and airspac e opacities of the left lung base. The cardiomediastinal silhouette is stable. No pleural effusion or pneumothorax. IMPRESSION: 1. Diffuse opacities throughout the right lung and left basilar airspace opacity, consistent with ate lectasis versus pneumonia versus pulmonary edema. Reviewed, dictated and finalized at location B. ACUTE DIALYSIS IMPRESSION: 1. Diffuse opacities throughout the right lung and left basilar airspace opacit y, consistent with atelectasis versus pneumonia versus pulmonary edema.
--- NOTE | ~2023-09-03 | CT_ITS ---
EXAMINATION: CT abdomen pelvis w con INDICATION: Upper abdominal pain TECHNIQUE: Computed tomographic images of the abdomen and pelvis were obtained after the administrati on of 100 cc of Omnipaque 350 intravenous contrast. The dose-length product (DLP) was 524.16 mGy-cm. Automated exposure control and iterative reconstruction technique were employed. COMPARISON: 06/25/2022 FINDINGS: Minimal dependent atelectasis is present in the lung bases. The heart size is normal. Calci fied coronary artery atherosclerosis is noted. The liver, spleen, and adrenal glands are normal. Ston es are present in the nondistended gallbladder. There is mild gallbladder wall thickening. There is a moderate volume of peripancreatic fluid. The pancreas appears to be hypoenhancing in the body. Cysts of the kidneys measure up to 1.8 cm on the left. No pathologically enlarged abdominal or pelvic lymp h nodes are identified. No free intraperitoneal gas or evidence of bowel obstruction. There is calcif ied atherosclerosis of the aorta and many of the other arteries. IMPRESSION: 1. Findings consistent with acute pancreatitis. Suggestive of hypoenhancement in the mid body could r eflect necrotizing pancreatitis with sterile acute necrotic collection. 2. Cholelithiasis. Mild gallbladder wall thickening is likely due to acute pancreatitis or less likel y cholecystitis. Reviewed, dictated and finalized at location F. CONSULTANT IMPRESSION: 1. Findings consistent with acute pancreatitis. Suggestive of hypoenhancement i n the mid body could reflect necrotizing pancreatitis with sterile acute necrot ic collection. 2. Cholelithiasis. Mild gallbladder wall thickening is likely due to acute panc reatitis or less likely cholecystitis.
[2023-09-03 22:06] VITALS: BP 131/78; PULSE 88; RESP 20; TEMP 36.5; O2SAT 100
[2023-09-04] VITALS (63 sets, daily range): BP systolic 84–191; BP diastolic 27–127; PULSE 81–130; RESP 13–32; TEMP 36.3–37; O2SAT 88–100; BMI 29.1
[2023-09-04 00:15] LABS: Appearance Urine Cloudy (Clear); Bacteria Urine None Seen /hpf; Bilirubin Urine Negative (Negative); Blood Urine Negative (Negative); Color Urine Yellow (Yellow); Glucose Urine UA 3+ mg/dL (Negative); Ketones Urine Trace mg/dL (Negative); Leukocyte Esterase Ur Negative LEU/UL (Negative); Need Manual Microscopic Reviewed; Nitrate Urine Negative (Negative); Protein Urine 2+ mg/dL (Negative); Specific Grav Ur 1.026 (1.001-1.035); Squamous Epithelial Cell Urine Few /hpf (Few); Urobilinogen Urine 0.2 mg/dL (<2.0); WBC Urine 21-50 /hpf; pH Urine 5.5 (5.0-9.0)
[2023-09-04 00:23] LABS: Basophils Percent Auto 0.2 % (0.2-1.2); Eosinophils Absolute Auto 0.1 K/mm3 (0-0.3); Eosinophils Percent Auto 0.5 % (0-4.4); Hematocrit 39.4 % (42.0-52.0); Hemoglobin 13.1 g/dL (14.0-18.0); Immature Granulocyte Absolute 0.09 K/mm3 (0.00-0.031); Immature Granulocyte Percent A 0.6 % (0-0.5); Lymphocytes Absolute Auto 0.73 K/mm3 (0.9-3.2); Lymphocytes Percent Auto 4.9 % (18.3-44.2); Mean Corpuscular HGB Conc 33.2 g/dl (32-36); Mean Corpuscular Hemoglobin 30.2 pg (26-34); Mean Corpuscular Volume 90.8 fl (80-100); Mean Platelet Volume 10.3 fl (7.4-10.4); Monocytes Absolute Auto 0.6 K/mm3 (0.1-0.6); Monocytes Percent Auto 4.3 % (2.6-8.5); Neutrophils Absolute Auto 13.2 K/mm3 (1.3-6.7); Neutrophils Percent Auto 89.5 % (45.5-73.1); Platelet Count Result 271 k/mm3 (150-375); Red Blood Count 4.34 M/mm3 (4.6-6.20); Red Cell Distribution Width 12.9 % (11.5-14.5); White Blood Count 14.8 K/mm3 (4.5-10.0)
[2023-09-04 00:37] LABS: Alanine Aminotransferase 111 U/L (6-50); Albumin Level 4.1 g/dL (3.5-5.1); Alkaline Phosphatase 151 U/L (38-126); Anion Gap 17 mmol/L (8-16); Aspartate Amino Transferase 216 U/L (17-59); Bilirubin,Total 0.7 mg/dL (0.2-1.3); Blood Urea Nitrogen 19 mg/dL (9-20); Carbon Dioxide 18 mmol/L (22-30); Chloride 101 mmol/L (98-107); Estimated CRCL calculation 44 ml/min; Estimated Glomerular Filt Rate 48; Glucose 377 mg/dL (65-110); Potassium 3.9 mmol/L (3.4-5.0); Sodium 136 mmol/L (137-145)
[2023-09-04 00:50] LABS: Add Urine Microscopic? YES
--- NOTE | 2023-09-04 00:57 | ED.ABDPAIN ---
HPI - Abdominal Pain General Chief Complaint: Abdominal Pain Stated Complaint: abd pain, N/V Time Seen by Provider: 09/03/23 23:56 Source: patient Mode of arrival: ambulatory Limitations: no limitations History of Present Illness HPI narrative: Patient is a 58 y/o male who presents to the ED with c/o upper abdominal pain. Patient reports he took a plane home from [facility] today. He ate a sandwich with cucumbers prior to getting on the plane and developed severe abdominal pain throughout his upper abdomen after eating. He developed nausea, vomiting, diarrhea on the plane. He notes 20+ episodes of vomiting on the plane. He does still feel nauseous currently. They drove straight here upon landing. Patient complains of persistent pain throughout his upper abdomen. He has not taken anything for the pain today. He notes similar sx's 3 weeks ago which resolved on its own after a couple days. Denies previous hx of gallbladder issues or pancreatitis, but does note he has been on ozempic for the past 1 year. Hx DM. Denies known fevers today. Related Data Home Medications Medication Instructions Recorded Confirmed acetaminophen 500 mg tablet 1,000 mg PO BID PRN pain 06/25/22 09/04/23 (Acetaminophen Extra Strength) amlodipine 10 mg tablet 10 mg PO DAILY 06/25/22 09/04/23 empagliflozin 25 mg tablet 25 mg PO DAILY 06/25/22 09/04/23 lisinopril 40 mg tablet 40 mg PO DAILY 06/25/22 09/04/23 metformin 1,000 mg tablet 1,000 mg PO BIDWMEAL 06/25/22 09/04/23 omeprazole 20 mg capsule,delayed 40 mg PO DAILY 06/25/22 09/04/23 release sertraline 100 mg tablet 50 mg PO DAILY 06/25/22 09/04/23 sildenafil 100 mg tablet 100 mg PO WEEKLY PRN Sexual 06/25/22 09/04/23 Activity trazodone 100 mg tablet 200 mg PO HS 06/25/22 09/04/23 semaglutide 0.25 mg or 0.5 mg (2 0.5 mg subcut WEEKLY 09/04/23 09/04/23 mg/3 mL) subcutaneous pen injector (Ozempic) Allergies Allergy/AdvReac Type Severity Reaction Status Date / Time No Known Allergies Allergy Verified 08/22/22 16:38 Review of Systems Review of Systems: CONSTITUTIONAL: Denies fever, chills, or sweats. CARDIOVASCULAR: Denies chest pain. RESPIRATORY: Denies dyspnea. GASTROINTESTINAL: see HPI. GENITOURINARY: Denies dysuria or hematuria. SKIN: Denies rash or itching. MUSCULOSKELETAL: Denies back pain, joint pain, or myalgia. All systems reviewed & are unremarkable except as noted in HPI and below PMFSH Past Medical History Medical History Depression Diabetes mellitus Erectile dysfunction GERD (gastroesophageal reflux disease) Hypercholesterolemia Hypertension Obstructive sleep apnea PTSD (post-traumatic stress disorder) Surgical History Surgical History History of appendectomy History of colonoscopy with polypectomy History of dental surgery Dental implants Family History Family History Father Myocardial infarct, Onset Age: 75 Mother COPD (chronic obstructive pulmonary disease) Smoking Cor pulmonale, chronic Hernia Diabetes mellitus Knee joint replacement by other means Hip joint replacement status Asthma CHF (congestive heart failure) Social History Social History Social History: The patient worked as a [employer] before he moved on to the [employer]. He retired from the [employer] October 2021. He served in the [employer] for 27 years but retired May 27, 2022. He is and has a son who is 25 and her daughter was 20. He smoked 1 pack of cigarettes per week for approximately 9 years but quit smoking at the age 25. He drinks 2 beers a couple of times a week. Denies any illicit substance use. Code status: Full code Surrogate decision maker: Faye () Smoking packs per day
[2023-09-04] MEDS: MORPHINE SULFATE (*CRX) 4 MG/ML INJ IV PUSH (01:00)
[2023-09-04] MEDS: ONDANSETRON INJ 4 MG/2 ML VIAL IV PUSH (01:00)
--- NOTE | 2023-09-04 01:00 | ECG_ITS ---
Measurements Intervals [place] Rate: 95 P: 45 [place]: 158 QRS: 18 QRSD: 108 T: 94 QT: 373 QTc: 471 Interpretive Statements SINUS RHYTHM ST ELEVATION,INFERIOR INJURY ACUTE OR Electronically Signed On 09-04-2023 10:30:46 PROFESSOR OF VISUAL ARTS by Ranjit Navarrete M.D.
[2023-09-04] MEDS: SODIUM CHLORIDE 0.9% IV 1,000 ML 999 ML IV CONT ×4 (01:01→10:05)
[2023-09-04 01:32] LABS: Lactic Acid Reflex 3.2 mmol/L (0.7-2.0); Magnesium 1.6 mg/dL (1.6-2.3)
[2023-09-04 01:54] LABS: Influenza A QL RT-PCR Negative (Negative); Influenza B QL RT-PCR Negative (Negative); RSV RNA, RT-PCR Negative (Negative); SARS-CoV-2 RNA PCR Negative (Negative)
[2023-09-04 01:55] LABS: Lipase 15603 U/L (23-300)
--- NOTE | 2023-09-04 02:08 | PC.NURSE ---
STEMI called by Dr. Eldridge @0159. STEMI protocol initiated at this time. Pt denied chest pain, SOB on arrival to ed. Pt now reports he has slight tightness in the mid chest but states he was related this to excessive vomiting. Pt reports he has experienced nausea, dizziness, lightheadedness since 09/03.
[2023-09-04 02:20] LABS: Basophils Percent Auto 0.2 % (0.2-1.2); Eosinophils Absolute Auto 0.1 K/mm3 (0-0.3); Eosinophils Percent Auto 0.4 % (0-4.4); Hematocrit 39.1 % (42.0-52.0); Hemoglobin 12.7 g/dL (14.0-18.0); Immature Granulocyte Absolute 0.08 K/mm3 (0.00-0.031); Immature Granulocyte Percent A 0.6 % (0-0.5); Lymphocytes Absolute Auto 0.52 K/mm3 (0.9-3.2); Lymphocytes Percent Auto 4.1 % (18.3-44.2); Mean Corpuscular HGB Conc 32.5 g/dl (32-36); Mean Corpuscular Hemoglobin 29.3 pg (26-34); Mean Corpuscular Volume 90.3 fl (80-100); Mean Platelet Volume 10.3 fl (7.4-10.4); Monocytes Absolute Auto 0.4 K/mm3 (0.1-0.6); Monocytes Percent Auto 3.4 % (2.6-8.5); Neutrophils Absolute Auto 11.7 K/mm3 (1.3-6.7); Neutrophils Percent Auto 91.3 % (45.5-73.1); Platelet Count Result 249 k/mm3 (150-375); Red Blood Count 4.33 M/mm3 (4.6-6.20); Red Cell Distribution Width 12.9 % (11.5-14.5); White Blood Count 12.8 K/mm3 (4.5-10.0)
[2023-09-04] MEDS: PIPERACILLN/TAZ 3.375GM/NS50ML 3.375 GM/50 ML BAG IVPB ×4 (02:20→20:58)
[2023-09-04] MEDS: HYDROmorphone HCL INJ (*CRX) 1 MG/ML SYR 0.5 MG IV PUSH (02:21)
[2023-09-04 02:26] LABS: Hemoglobin A1C 7.8 % (<5.7)
[2023-09-04] MEDS: HEPARIN SODIUM 5,000 UNITS/ML VIAL 4000 UNITS IV PUSH (02:26)
[2023-09-04 02:30] LABS: INR 1.2; Prothrombin Time 15.4 Seconds (11.1-14.7)
[2023-09-04 02:34] LABS: Alanine Aminotransferase 100 U/L (6-50); Albumin Level 3.8 g/dL (3.5-5.1); Alkaline Phosphatase 139 U/L (38-126); Anion Gap 11 mmol/L (8-16); Aspartate Amino Transferase 208 U/L (17-59); Bilirubin,Total 0.6 mg/dL (0.2-1.3); Blood Urea Nitrogen 19 mg/dL (9-20); Calcium 8.7 mg/dL (8.4-10.2); Carbon Dioxide 21 mmol/L (22-30); Chloride 104 mmol/L (98-107); Cholesterol 100 mg/dL (0-200); Estimated CRCL calculation 47 ml/min; Estimated Glomerular Filt Rate 52; Glucose 331 mg/dL (65-110); HDL Direct 38 mg/dL; Potassium 4.4 mmol/L (3.4-5.0); Sodium 136 mmol/L (137-145); Triglycerides 123 mg/dL (<150)
[2023-09-04] MEDS: ASPIRIN 300 MG SUPPOSITORY 600 MG RECTAL (02:41)
[2023-09-04] MEDS: HEPARIN SOD/D5W 100 UNITS/ML 25,000 UNITS/250 ML BAG 9 UNITS IV CONT (02:42)
[2023-09-04 02:45] LABS: LDL Cholesterol Direct 45 mg/dL
[2023-09-04 04:16] LABS: Reflex Lactic Acid Yes or No Add Lactic
--- NOTE | 2023-09-04 04:43 | PM.IMHP ---
H&P: HPI History of Present Illness Date/Time: 09/04/23 04:43 Chief Complaint: Abdominal pain and chest pain associated with nausea and recurrent vomiting Narrative: 58-year-old male with CAD, history of non ST-elevation [place], status post PCI on 06/25/2022 (reported to be challenging procedure due to coronary calcification; POBA distal RCA, the stent that was intended to be deployed in distal segment reportedly stripped off the? delivery catheter proximally in the vessel and was deployed in the proximal segment); hypertension, diabetes mellitus, dyslipidemia, history of tobacco abuse. Patient presented to [facility] with complaints of severe abdominal pain associated with nausea and vomiting. He also developed chest discomfort. Patient states that he was traveling back from and started having nausea and vomiting while in the plane. His symptoms persisted and he decided to come to the hospital for further evaluation. Denied any dizziness or syncope. EKG on my personal interpretation showed sinus rhythm, ST-elevation in the inferior leads with reciprocal ST depression. Patient was found to have elevated troponin at 3.3 which is trending upwards to 8.4. He was also found to [place] [id number]. Per ER notes, CT abdomen which is not officially read yet, reported inflammatory changes surrounding the pancreas, representing acute pancreatitis; gallbladder distended containing calculi . Due to patient's clinical presentation, discussed at length with the ER physician and after CT findings, patient was emergently taken to the label folder. Emergent coronary angiogram showed 100% thrombotic occlusion of proximal RCA ( in the stented segment-very late stent thrombosis) with REBEL 0 flow-infarct related vessel; about 30-40% stenosis distal left main, high-grade, poorly defined focal stenosis in the proximal LAD; calcific high-grade stenosis at the ostium of the LCX. Left ventriculogram showed relatively preserved ejection fraction with basal inferior hypokinesis. Patient underwent balloon angioplasty of proximal RCA with methodist of flow, however, significant thrombus burden was seen in the terminal branches of the RCA. Serial balloon angioplasty was performed using multiple small balloons however, 3 mm balloon could not be advanced to the target lesion despite using GuideLiner. Stenting was therefore not performed for underlying InStent restenosis. Additionally, stenting would not have been feasible due to sluggish distal flow and significant thrombus burden in the terminal branches of the RCA. REBEL 1-2 flow was restored. Patient had already received rectal aspirin in the ER, was given loading dose of ticagrelor in the label folder. He had ongoing symptoms of abdominal pain but denied chest pain at the completion of procedure. Review of Systems Review of Systems: General: Negative for fever, chills, fatigue Psychological: Negative for anxiety, depression Ophthalmic: negative for loss of vision ENT: Negative for epistaxis, headaches Allergy and immunology: Negative for hives, nasal congestion Hematologic and lymphatic: Negative for overt bleeding problems Endocrine: Negative for hot flashes, palpitations Respiratory: Negative for cough, hemoptysis Cardiovascular: Positive for chest pain Gastrointestinal: positive for abdominal pain, nausea, vomiting Musculoskeletal: Negative for myalgia, joint pains Neurological: Negative for weakness Dermatological: Negative for rash, skin discoloration PMFSH Past Medical History Medical History Depression Diabetes mellitus Erectile dysfunction GERD (gastroesophageal reflux disease) Hypercholesterolemia Hypertension Obstructive sleep apnea PTSD (post-traumatic stress disorder) Surgical History Surgical History History of
--- NOTE | 2023-09-04 05:07 | ECG_ITS ---
Measurements Intervals [place] Rate: 98 P: 36 NC: 121 QRS: -8 QRSD: 105 T: 265 QT: 345 QTc: 441 Interpretive Statements SINUS RHYTHM LOW QRS VOLTAGE IN PRECORDIAL LEADS INFERIOR MYOCARDIAL INFARCTION, RECENT Electronically Signed On 09-04-2023 10:32:54 CLIENT SOLUTIONS DIRECTOR by Ranjit Navarrete M.D.
--- NOTE | 2023-09-04 05:10 | WPDCARDPROC ---
Cardiac Cath Procedure Note Date of procedure:: 09/04/23 Performing physician:: Ranjit Navarrete MD Procedure Procedure note:: CARDIAC CATHETERIZATION AND PERCUTANEOUS CORONARY INTERVENTION REPORT DATE OF PROCEDURE: 09/04/2023 INDICATION FOR PROCEDURE: acute coronary syndrome-inferior ST-elevation myocardial infarction BRIEF CLINICAL HISTORY: 58-year-old male with CAD, history of non ST-elevation [place], status post PCI on 06/25/2022 (reported to be challenging procedure due to coronary calcification; POBA distal RCA, the stent that was intended to be deployed in distal segment? reportedly stripped off the? delivery catheter proximally in the vessel? and was deployed in the proximal segment); hypertension, diabetes mellitus, dyslipidemia, history of tobacco abuse.? Patient presented to [facility] with complaints of severe abdominal pain associated with nausea and vomiting.? He also developed chest discomfort.? Patient stated that he was traveling back from and started having nausea and vomiting while on the plane.? His symptoms persisted and he decided to come to the hospital for further evaluation.? Denied any dizziness or syncope.? EKG on my personal interpretation showed sinus rhythm, ST-elevation in the inferior leads with reciprocal ST depression.? Patient was found to have elevated troponin at 3.3 which is trending upwards to 8.4.? He was also found to [place] [address].? Per ER notes, CT abdomen which is not officially read yet, reported inflammatory changes surrounding the pancreas, representing acute pancreatitis; gallbladder distended containing calculi .? Due to patient's clinical presentation, discussed at length with the ER physician and after CT findings, patient was emergently taken to the laborer pipelines. PROCEDURES PERFORMED: 1. Left heart catheterization- Selective left and right coronary angiogram; left ventriculogram and hemodynamic assessment 2. Primary Percutaneous coronary intervention- balloon angioplasty of totally occluded proximal RCA in the previously stented segment 3. Deployment of Mynx hemostatic device 4. Moderate sedation-CPT code 07471 and beyond MODERATE SEDATION: Midazolam 1 mg; fentanyl 25 mcg. Start time 0323 , Stop time 0427 ; Total [id number] time 64 minutes; Sasha Howard RN was trained observer for moderate sedation. ACCESS SITE: Right common femoral artery PROCEDURE NOTE: patient was emergently brought to catheterization lab and prepped and draped in a usual sterile manner. After local anesthesia with lidocaine, right common femoral artery access was taken with micropuncture needle followed by insertion of a 6 Burkinan sheath. Selective left and right coronary angiogram was performed using 5 Burkinan JL4 diagnostic and JR4 guide catheters respectively. Orthogonal views were taken. After completion of PCI a 5 Burkinan pigtail catheter was advanced in the LV cavity and was flushed with normal saline. LV pressure measurement was performed. After this, left ventriculogram was performed. The catheter was flushed again, and gradient across the aortic valve was measured on the pullback of the catheter. After completion of procedure, Mynx vascular closure device was deployed with good hemostasis. The angiographic findings and details of PCI are given below. FINDINGS: LEFT MAIN CORONARY: A large caliber vessel with about 30-40% stenosis in the distal segment. LEFT ANTERIOR DESCENDING ARTERY: Medium caliber vessel with discrete calcific , somewhat poorly defined high-grade stenosis in the proximal segment. The vessel tapers distally and reaches LV apex. diagonal branches are smaller caliber vessels. RAMUS INTERMEDIUS: Medium to large caliber vessel with 40-50% stenosis in the proximal segment. LEFT CIRCUMFLEX ARTERY: Medium caliber vessel. There is densely calcific high-grade stenosis at the ostium. The vessel gives rise t
[2023-09-04] MEDS: HYDROmorphone HCL INJ (*CRX) 1 MG/ML SYR IV PUSH ×5 (05:28→22:19)
[2023-09-04 05:45] LABS: Lactic Acid 2.9 mmol/L (0.7-2.0)
[2023-09-04] MEDS: METOPROLOL TARTRATE 12.5 MG TABLET PO ×2 (05:59→20:57)
[2023-09-04] MEDS: HYDROmorphone HCL INJ (*CRX) 1 MG/ML SYR 2 MG (06:12)
[2023-09-04] MEDS: hydrALAZINE HCL 20 MG/ML VIAL 10 MG IV PUSH (07:07)
--- NOTE | 2023-09-04 08:23 | ADMGEN ---
This patient, Johanna Barbosa, was admitted to Intensive Care Unit-11 at 0505. Patient/family oriented to hospital policies and general routines including ID bracelet, bed and alarms, visiting hours, pain management, procedures, bathroom and other care routines, personal items, smoking policy, room service/diet, and visiting hours. Information on how to activate the Rapid Response Team has been discussed. Patient/Family are encouraged to report perceived risks to care and to ask questions if they do not understand what they are told or what they should do.
[2023-09-04] MEDS: SODIUM CHLORIDE 0.9% IV 1,000 ML 125 ML IV CONT (09:09)
--- NOTE | 2023-09-04 09:41 | PM.CNGS ---
Assessment and Plan Assessment and plan (1) Acute pancreatitis: Qualifiers: Pancreatitis type: biliary Acute pancreatitis complication: no infection or necrosis Qualified Code(s): K85.10 - Biliary acute pancreatitis without necrosis or infection Code(s): K85.90 - Acute pancreatitis without necrosis or infection, unspecified Status: Acute Assessment and Plan: Patient presented to the emergency department with acute pancreatitis and acute VT. I reviewed the CT and discussed the findings with the patient. Pancreatitis will be treated with bowel rest and IV fluids and pain meds. Will repeat lipase level tomorrow. Once pancreatitis has resolved, diet can gradually be advanced from clear liquids to low fat. There does not appear to be any signs of acute cholecystitis on the imaging. His liver enzymes are slightly elevated but bilirubin is normal. Laparoscopic cholecystectomy would typically be recommended during hospitalization for pancreatitis, but given his acute VT this would likely be much higher risk. Discussed with patient and the possibility of treating non operatively with low-fat diet and symptomatic treatment until he is clear from cardiology for an elective surgery. There would be chances of recurrent pancreatitis with this choice, but this still may be safer than proceeding with surgery in the setting of acute VT. will continue to follow along patient. (2) ST elevation (STEMI) myocardial infarction: Code(s): I21.3 - ST elevation (STEMI) myocardial infarction of unspecified site Status: Acute (3) Cholelithiasis: Qualifiers: Cholelithiasis location: gallbladder Cholecystitis presence: without cholecystitis Biliary obstruction: without biliary obstruction Qualified Code(s): K80.20 - Calculus of gallbladder without cholecystitis without obstruction Code(s): K80.20 - Calculus of gallbladder without cholecystitis without obstruction Status: Acute (4) Diabetes mellitus: Qualifiers: Diabetes mellitus type: type 2 Diabetes mellitus alf insulin use: without lobsterman use Diabetes mellitus complication status: with circulatory complication Diabetes mellitus complication detail: with other circulatory complications Qualified Code(s): E11.59 - Type 2 diabetes mellitus with other circulatory complications Code(s): E11.9 - Type 2 diabetes mellitus without complications Status: Acute (5) Hypertension: Code(s): I10 - Essential (primary) hypertension Status: Acute (6) Obstructive sleep apnea: Code(s): G47.33 - Obstructive sleep apnea (adult) (pediatric) Status: Acute History of Present Illness Consult details Consult date: 09/04/23 Reason for consult: other (Gallstone Pancreatitis) Requesting physician: Ranjit Navarrete MD Narrative: This is a 58-year-old man who I am asked to see for acute pancreatitis. He presented to the emergency department overnight and was found to have acute pancreatitis as well as an acute VT. He was taken for cardiac catheterization overnight but was found to have 100% occlusion of the RCA and PCI was unsuccessful at complete church of blood flow to this segment.. The patient was on a flight back from [place] yesterday. He began experiencing epigastric abdominal pain on the flight and was experiencing significant nausea, vomiting, and diarrhea. His pain had developed after eating a sandwich. He had a similar episode to this about 3 weeks ago after eating a BLT sandwich but symptoms were not quite as severe. Patient is currently in the ICU after undergoing cardiac catheterization. His abdominal pain does appear to be improving, but this took multiple doses of Dilaudid to gain control. A CT in the emergency department showed acute pancreatitis with cholelithiasis. His lipase was greater than 16,000. Review of Systems Review of Systems: All systems reviewed & are unremarkable except a
[2023-09-04] MEDS: INSULIN HUMAN REGULAR (*BKC) 100 UNITS in SODIUM CHLORIDE 0.9% IV 99 ML 8.5 UNITS IV CONT (10:14)
[2023-09-04] MEDS: SODIUM CHLORIDE 0.9% IV 1,000 ML 150 ML IV CONT (10:14)
[2023-09-04 10:25] LABS: Anion Gap 13 mmol/L (8-16); Blood Urea Nitrogen 19 mg/dL (9-20); Carbon Dioxide 18 mmol/L (22-30); Chloride 108 mmol/L (98-107); Estimated CRCL calculation 41 ml/min; Estimated Glomerular Filt Rate 44; Glucose 297 mg/dL (65-110); Magnesium 1.7 mg/dL (1.6-2.3); Potassium 4.1 mmol/L (3.4-5.0); Sodium 139 mmol/L (137-145)
[2023-09-04 10:27] LABS: Glucose Point of Care 291 mg/dl (65-105)
[2023-09-04 10:37] LABS: Hemoglobin A1C 7.9 % (<5.7)
--- NOTE | 2023-09-04 11:08 | WPDCNINT ---
Assessment and Plan Assessment and plan (1) Cholelithiasis: Qualifiers: Cholelithiasis location: gallbladder Cholecystitis presence: without cholecystitis Biliary obstruction: without biliary obstruction Qualified Code(s): K80.20 - Calculus of gallbladder without cholecystitis without obstruction Code(s): K80.20 - Calculus of gallbladder without cholecystitis without obstruction Status: Acute (2) ST elevation (STEMI) myocardial infarction: Code(s): I21.3 - ST elevation (STEMI) myocardial infarction of unspecified site Status: Acute Assessment and Plan: Patient has history of coronary disease non STEMI and PCI of RCA. Now admitted with STEMI status post angioplasty and suctioning of thrombus in RCA stent ICU telemetry monitoring Check echocardiogram Heparin infusion to be continued as per Cardiology Aspirin, beta-rajesh and Brilinta Hold statin due to elevated LFTs (3) Acute pancreatitis: Qualifiers: Acute pancreatitis complication: no infection or necrosis Pancreatitis type: biliary Qualified Code(s): K85.10 - Biliary acute pancreatitis without necrosis or infection Code(s): K85.90 - Acute pancreatitis without necrosis or infection, unspecified Status: Acute Assessment and Plan: Patient has acute pancreatitis likely secondary to gallstones.. he is also on Ozempic which can cause pancreatitis CT scan confirms acute pancreatitis and cholelithiasis but there is no dilatation of duct Surgery and GI has been consulted Bilirubin is normal right upper quadrant ultrasound is pending NPOat this time and pain control (4) DKA (diabetic ketoacidosis): Code(s): E11.10 - Type 2 diabetes mellitus with ketoacidosis without coma Status: Acute Assessment and Plan: Patient appears to be in DKA Patient will be given IVF bolus and infusion I will start Insulin infusion and Q1H glucose monitoring Serial labs ordered Replace electrolytes as needed (5) Diabetes mellitus: Qualifiers: Diabetes mellitus type: type 2 Diabetes mellitus senior care insulin use: without senior care use Diabetes mellitus complication status: with circulatory complication Diabetes mellitus complication detail: with other circulatory complications Qualified Code(s): E11.59 - Type 2 diabetes mellitus with other circulatory complications Code(s): E11.9 - Type 2 diabetes mellitus without complications Status: Acute Assessment and Plan: See above (6) Hypercholesterolemia: Code(s): E78.00 - Pure hypercholesterolemia, unspecified Status: Acute Assessment and Plan: Statin hold (7) GERD (gastroesophageal reflux disease): Code(s): K21.9 - Gastro-esophageal reflux disease without esophagitis Status: Acute Assessment and Plan: PPI Plan DVT prophylaxis -currently on heparin drip Stress ulcer prophylaxis -PPI Nutrition - npo Code Status - Full Code Case discussed with internal medicine physician, General surgery and Cardiology Discuss in detail with patient and his . I answered all their questions Total Critical Care Time - 35 minutes Due to a high probability of clinically significant, life threatening deterioration, the patient required my highest level of preparedness to intervene emergently and I personally spent this critical care time directly and personally managing the patient. This critical care time included obtaining a history; examining the patient; pulse oximetry; ordering and review of studies; arranging urgent treatment with development of a management plan; evaluation of patient's response to treatment; frequent reassessment; and discussions with other providers. It was exclusive of separately billable procedures and treating other patients and teaching time. Please see Assessment and Plan section and the rest of the note for further information on patient assessment and treatment Auricular Detoxification Specialist Cons
[2023-09-04 11:46] LABS: Glucose Point of Care 221 mg/dl (65-105)
[2023-09-04] MEDS: KCL 20 MEQ/D5/0.45% SOD CHL 1,000 ML 150 ML IV CONT ×2 (11:48→19:37)
[2023-09-04 12:50] LABS: Glucose Point of Care 207 mg/dl (65-105)
--- NOTE | 2023-09-04 13:44 | WPDGICN ---
Assessment and Plan Assessment and plan (1) Acute pancreatitis: Qualifiers: Acute pancreatitis complication: no infection or necrosis Pancreatitis type: biliary Qualified Code(s): K85.10 - Biliary acute pancreatitis without necrosis or infection Code(s): K85.90 - Acute pancreatitis without necrosis or infection, unspecified Status: Acute Assessment and Plan: He was found have a markedly elevated lipase at 15,600. he had been having abdominal pain beginning about 3 weeks ago. He also developed abdominal pain with nausea vomiting when traveling here from [place] on admission the pain was said to be [address] scan shows acute pancreatitis and cholelithiasis. He has not had pancreatitis in the past. He had not been aware of having gallstones in the past. (2) ST elevation (STEMI) myocardial infarction: Code(s): I21.3 - ST elevation (STEMI) myocardial infarction of unspecified site Status: Acute Assessment and Plan: He had a marked elevation of his troponin, up to 54 today. He went to the cardiac catheterization lab and had balloon angioplasty and stent placement. The findings were: 1. Severe CAD- a)? 100% thrombotic occlusion proximal RCA in the previously stented segment (very late stent thrombosis); b)? 30-40% stenosis distal left main; c)? high-grade, calcific stenosis proximal LAD d)? 40-50% stenosis proximal segment of ramus intermedius; e)? high-grade calcific stenosis at the ostium of left circumflex artery 2.? LV segmental wall motion abnormality -basal inferior dyskinesis;? overall systolic function preserved, LVEF approximately 60%, LVEDP 13 mmHg. 3. Primary PCI -balloon angioplasty of totally occluded proximal RCA in the previously stented segment with adventism of REBEL 1-2 flow (repeat stenting not performed due to difficulty in advancing the balloons and significant thrombus burden in the terminal branches of RCA). (3) Cholelithiasis: Qualifiers: Cholelithiasis location: gallbladder Cholecystitis presence: without cholecystitis Biliary obstruction: without biliary obstruction Qualified Code(s): K80.20 - Calculus of gallbladder without cholecystitis without obstruction Code(s): K80.20 - Calculus of gallbladder without cholecystitis without obstruction Status: Acute Assessment and Plan: he was not previously aware of gallbladder disease. CT does not show dilated bile duct. Bilirubin is normal transaminases are elevated, AST 216 ALT 111. Alkaline phosphatase also elevated at 151. (4) Lactic acidosis: Code(s): E87.20 - Acidosis, unspecified Status: Acute Assessment and Plan: Was 3.2 on arrival and early this morning down to 2.9 Plan this patient has acute ST-elevation myocardial infarction which was addressed a few hours ago by cardiac catheterizat ion. He also has gallstone pancreatitis. His generalized abdominal pain nausea vomiting began yesterday when about to fly home from [place]. Since his cardiac catheterization he is having slightly less pain. IV he has not had pain in his chest and is difficult to know how much of his pain was due to that. Nevertheless he he is tender to palpation in obviously has significant pancreatitis. He does not appear this point that he has common bile duct stones and therefore is not likely to need my services in terms of ERCP. He has been seen by surgery. He will eventually need cholecystectomy. GI Consult Note Consult date/time: 09/04/23 13:44 HPI: Johanna Barbosa is a 58 year old male Who developed symptoms of nausea vomiting abdominal pain when he was about to board a plane coming home from [place]. He was very sick throughout the flight and when he landed came straight by car to the hospital. He was found to have elevation of his troponins, he has ST-elevation myocardial infarction, and was found to have acute pancreatitis with lipase of over 15,000. Review of S
[2023-09-04 13:53] LABS: Glucose Point of Care 186 mg/dl (65-105)
[2023-09-04] MEDS: TICAGRELOR 90 MG TABLET PO ×2 (14:13→20:58)
--- NOTE | 2023-09-04 14:13 | PM.IMHP ---
H&P: HPI History of Present Illness Date/Time: 09/04/23 14:13 Chief Complaint: Nausea, vomiting and abdominal pains Narrative: Pt is a 58 year old male with a history of CAD, history of non ST-elevation [place], with PCI in 2021. Pt admitted with nausea, vomiting and severe abdominal pains. Pt was flying back from when he felt nauseated on the flight and had severe abdominal pains found to have uncontrolled sugars on admission and CT shows inflammatory changes surrounding the pancreas, representing acute pancreatitis; gallbladder distended containing calculi .? EKG shows ?ST-elevation in the inferior leads with reciprocal ST depression.? with troponin trending to 8 Pt taken for emergent heart cath by DR Navarrete youth associate. Pt has positive FH of heart disease Review of Systems Review of Systems: Tired nausea better no chest pain or SOB PMFSH Past Medical History Medical History Depression Diabetes mellitus Erectile dysfunction GERD (gastroesophageal reflux disease) Hypercholesterolemia Hypertension Obstructive sleep apnea PTSD (post-traumatic stress disorder) Surgical History Surgical History History of appendectomy History of colonoscopy with polypectomy History of dental surgery Dental implants Family History Family History Father Myocardial infarct, Onset Age: 75 Mother COPD (chronic obstructive pulmonary disease) Smoking Cor pulmonale, chronic Hernia Diabetes mellitus Knee joint replacement by other means Hip joint replacement status Asthma CHF (congestive heart failure) Social History Social History Social History: The patient worked as a [employer] before he moved on to the [employer]. He retired from the [employer] October 2021. He served in the [employer] for 27 years but retired May 27, 2022. He is and has a son who is 25 and her daughter was 20. He smoked 1 pack of cigarettes per week for approximately 9 years but quit smoking at the age 25. He drinks 2 beers a couple of times a week. Denies any illicit substance use. Code status: Full code Surrogate decision maker: Faye () Smoking packs per day: 0.5 Smoking cigarettes per day: 10.0 Years smoked: 5 Smoking pack-years: 2.50 Smoking status: Former smoker Tobacco type: cigarettes Second hand tobacco smoke exposure: Yes Alcohol intake: current Drinks per week: 2 Substance use: never Lack of Transportation: No Lack of Food: Never True Current Housing: I Have Housing Concerned About Future Housing: No Difficulty Paying Gas/Electric Bills: No Difficulty Paying for Meds: No Currently Unemployed: No Education: Bachelor's Degree Difficulty w/ Childcare or Family Care: No Spiritual care concerns: Yes (sabianist) Meds Home Medications and Allergies Home Medications Medication Instructions Recorded Confirmed Type acetaminophen 500 mg tablet 1,000 mg PO BID PRN pain 06/25/22 09/04/23 History (Acetaminophen Extra Strength) amlodipine 10 mg tablet 10 mg PO DAILY 06/25/22 09/04/23 History empagliflozin 25 mg tablet 25 mg PO DAILY 06/25/22 09/04/23 History lisinopril 40 mg tablet 40 mg PO DAILY 06/25/22 09/04/23 History metformin 1,000 mg tablet 1,000 mg PO BIDWMEAL 06/25/22 09/04/23 History omeprazole 20 mg capsule,delayed 40 mg PO DAILY 06/25/22 09/04/23 History release sertraline 100 mg tablet 50 mg PO DAILY 06/25/22 09/04/23 History sildenafil 100 mg tablet 100 mg PO WEEKLY PRN Sexual 06/25/22 09/04/23 History Activity trazodone 100 mg tablet 200 mg PO HS 06/25/22 09/04/23 History aspirin 81 mg chewable tablet 81 mg PO DAILY@0800 #30 tabs 06/26/22 09/04/23 Rx ([facility]) atorvastatin 40 mg tablet 80 m
[2023-09-04 15:12] LABS: Glucose Point of Care 199 mg/dl (65-105)
[2023-09-04 15:30] LABS: Appearance Urine Clear (Clear); Bacteria Urine None Seen /hpf; Bilirubin Urine Negative (Negative); Blood Urine 1+ (Negative); Color Urine Yellow (Yellow); Glucose Urine UA 3+ mg/dL (Negative); Ketones Urine Negative (Negative); Leukocyte Esterase Ur Negative LEU/UL (NEGATIVE); Need Manual Microscopic Reviewed; Nitrate Urine Negative (Negative); Non Pathogenic Casts 0-2; Protein Urine 1+ mg/dL (Negative); RBC Urine 0-2 /hpf (0-2); Squamous Epithelial Cell Urine None seen /hpf (Few); Urobilinogen Urine 0.2 mg/dL (<2.0); WBC Urine 0-5 /hpf (0-3)
[2023-09-04 15:32] LABS: Add Urine Microscopic? YES; Specific Grav Ur 1.063 (1.001-1.035)
[2023-09-04 16:11] LABS: Glucose Point of Care 214 mg/dl (65-105)
[2023-09-04 17:09] LABS: Glucose Point of Care 244 mg/dl (65-105)
[2023-09-04 18:16] LABS: Glucose Point of Care 283 mg/dl (65-105)
[2023-09-04 18:58] LABS: Anion Gap 12 mmol/L (8-16); Blood Urea Nitrogen 20 mg/dL (9-20); Calcium 7.9 mg/dL (8.4-10.2); Carbon Dioxide 16 mmol/L (22-30); Chloride 109 mmol/L (98-107); Estimated CRCL calculation 47 ml/min; Estimated Glomerular Filt Rate 52; Glucose 241 mg/dL (65-110); Potassium 4.4 mmol/L (3.4-5.0); Sodium 137 mmol/L (137-145)
[2023-09-04 18:59] LABS: Glucose Point of Care 237 mg/dl (65-105)
[2023-09-04 21:06] LABS: Glucose Point of Care 193 mg/dl (65-105)
[2023-09-04 22:27] LABS: Glucose Point of Care 304 mg/dl (65-105)
[2023-09-04 22:27] LABS: Glucose Point of Care 191 mg/dl (65-105)
[2023-09-05] VITALS (24 sets, daily range): BP systolic 104–138; BP diastolic 72–100; PULSE 91–115; RESP 14–22; TEMP 37–37.7; O2SAT 93–97; BMI 28.2
[2023-09-05 00:05] LABS: Anion Gap 8 mmol/L (8-16); Blood Urea Nitrogen 20 mg/dL (9-20); Calcium 7.3 mg/dL (8.4-10.2); Carbon Dioxide 18 mmol/L (22-30); Chloride 108 mmol/L (98-107); Estimated CRCL calculation 55 ml/min; Estimated Glomerular Filt Rate > 60; Glucose 198 mg/dL (65-110); Potassium 4.4 mmol/L (3.4-5.0); Sodium 134 mmol/L (137-145)
[2023-09-05] MEDS: HYDROmorphone HCL INJ (*CRX) 1 MG/ML SYR IV PUSH ×5 (00:11→08:28)
[2023-09-05 00:17] LABS: Glucose Point of Care 195 mg/dl (65-105)
[2023-09-05] MEDS: PIPERACILLN/TAZ 3.375GM/NS50ML 3.375 GM/50 ML BAG IVPB ×4 (02:10→20:52)
[2023-09-05 02:16] LABS: Glucose Point of Care 204 mg/dl (65-105)
[2023-09-05] MEDS: KCL 20 MEQ/D5/0.45% SOD CHL 1,000 ML 150 ML IV CONT (02:16)
[2023-09-05 04:03] LABS: Basophils Absolute Auto 0.1 K/mm3 (0.0-0.1); Basophils Percent Auto 0.3 % (0.2-1.2); Eosinophils Absolute Auto 0.4 K/mm3 (0-0.3); Eosinophils Percent Auto 2.1 % (0-4.4); Hematocrit 39.5 % (42.0-52.0); Hemoglobin 12.6 g/dL (14.0-18.0); Immature Granulocyte Absolute 0.09 K/mm3 (0.00-0.031); Immature Granulocyte Percent A 0.5 % (0-0.5); Lymphocytes Absolute Auto 0.86 K/mm3 (0.9-3.2); Lymphocytes Percent Auto 5.1 % (18.3-44.2); Mean Corpuscular HGB Conc 31.9 g/dl (32-36); Mean Platelet Volume 10.5 fl (7.4-10.4); Monocytes Absolute Auto 0.8 K/mm3 (0.1-0.6); Monocytes Percent Auto 4.9 % (2.6-8.5); Neutrophils Absolute Auto 14.6 K/mm3 (1.3-6.7); Neutrophils Percent Auto 87.1 % (45.5-73.1); Platelet Count Result 242 k/mm3 (150-375); Red Cell Distribution Width 13.9 % (11.5-14.5); White Blood Count 16.8 K/mm3 (4.5-10.0)
[2023-09-05 04:18] LABS: Alanine Aminotransferase 71 U/L (6-50); Albumin Level 3.4 g/dL (3.5-5.1); Alkaline Phosphatase 84 U/L (38-126); Anion Gap 9 mmol/L (8-16); Aspartate Amino Transferase 165 U/L (17-59); Bilirubin,Total 0.7 mg/dL (0.2-1.3); Blood Urea Nitrogen 20 mg/dL (9-20); Calcium 7.5 mg/dL (8.4-10.2); Carbon Dioxide 18 mmol/L (22-30); Chloride 107 mmol/L (98-107); Estimated CRCL calculation 55 ml/min; Estimated Glomerular Filt Rate > 60; Glucose 196 mg/dL (65-110); Magnesium 1.6 mg/dL (1.6-2.3); Potassium 4.5 mmol/L (3.4-5.0); Sodium 134 mmol/L (137-145)
[2023-09-05 04:19] LABS: Glucose Point of Care 195 mg/dl (65-105)
[2023-09-05 06:11] LABS: Glucose Point of Care 199 mg/dl (65-105)
[2023-09-05 06:12] LABS: Lipase 2943 U/L (23-300)
[2023-09-05] MEDS: INSULIN GLARGINE (*BKC) 100 UNITS/ML 10 UNITS SUB-Q (08:07)
[2023-09-05] MEDS: TICAGRELOR 90 MG TABLET PO ×2 (08:08→20:52)
[2023-09-05] MEDS: PANTOPRAZOLE SODIUM IV 40 MG VIAL IV PUSH (08:08)
[2023-09-05] MEDS: ENOXAPARIN 40 MG/0.4 ML SYRINGE SUB-Q (08:08)
[2023-09-05] MEDS: METOPROLOL TARTRATE 12.5 MG TABLET PO ×2 (08:08→20:52)
[2023-09-05] MEDS: ASPIRIN 81 MG ENTERIC TABLET PO (08:08)
[2023-09-05 08:19] LABS: Anion Gap 7 mmol/L (8-16); Blood Urea Nitrogen 20 mg/dL (9-20); Calcium 7.6 mg/dL (8.4-10.2); Carbon Dioxide 22 mmol/L (22-30); Chloride 106 mmol/L (98-107); Estimated CRCL calculation 55 ml/min; Estimated Glomerular Filt Rate > 60; Glucose 176 mg/dL (65-110); Sodium 135 mmol/L (137-145)
[2023-09-05] MEDS: HYDROmorphon 0.2MG/ML PCA(*CRX 6 MG/30 ML PCA.VIAL 1 MG IV CONT (09:28)
--- NOTE | 2023-09-05 09:55 | WPDINTPN ---
Progress Note: A&P Assessment and Plan (1) ST elevation (STEMI) myocardial infarction: Qualifiers: Involved coronary artery: unspecified coronary artery Qualified Code(s): I21.3 - ST elevation (STEMI) myocardial infarction of unspecified site Code(s): I21.3 - ST elevation (STEMI) myocardial infarction of unspecified site Status: Acute Assessment and Plan: Patient has history of coronary disease non STEMI and PCI of RCA. Now admitted with STEMI status post angioplasty and suctioning of thrombus in RCA stent ICU telemetry monitoring Pending echocardiogram Heparin infusion to be continued as per Cardiology Aspirin, beta-rajesh and Brilinta Statin (2) Acute pancreatitis: Qualifiers: Acute pancreatitis complication: no infection or necrosis Pancreatitis type: biliary Qualified Code(s): K85.10 - Biliary acute pancreatitis without necrosis or infection Code(s): K85.90 - Acute pancreatitis without necrosis or infection, unspecified Status: Acute Assessment and Plan: Patient has acute pancreatitis likely secondary to gallstones.. he is also on Ozempic which can cause pancreatitis CT scan confirms acute pancreatitis and cholelithiasis but there is no dilatation of duct Surgery and GI have evaluated the patient He will eventually need cholecystectomy Bilirubin is normal Right upper quadrant ultrasound Echogenic liver, most commonly due to steatosis but also can be seen with hepatitis and fibrosis. Gallbladder wall thickening and pericholecystic fluid, nonspecific findings in the context of pancreatitis. Negative sonographic Zarco sign, confounded by the concurrent use of pain medication. Appears to have developed some ileus NPO at this time and continue pain control Will start Dilaudid SCOW CAPTAIN for pain control (3) DKA (diabetic ketoacidosis): Code(s): E11.10 - Type 2 diabetes mellitus with ketoacidosis without coma Status: Acute Assessment and Plan: Patient was in DKA but his anion gap has closed and I will transition to subcutaneous Lantus and insulin Discontinue further IV fluids he appears to be developing pulmonary edema (4) Pulmonary edema: Code(s): J81.1 - Chronic pulmonary edema Status: Acute Assessment and Plan: Patient appears slightly more short of breath this morning although he is only on 2 L nasal cannula. Wheezing on exam Chest x-ray shows pulmonary edema Patient has been receiving IV fluids for his DKA which are now off Will give IV Lasix P.r.n. albuterol (5) Ileus: Code(s): K56.7 - Ileus, unspecified Status: Acute Assessment and Plan: Abdominal appear distended on exam. Patient denies any nausea vomiting at this time but KUB confirms ileus Will place NG tube to low intermittent suction (6) Cholelithiasis: Qualifiers: Cholelithiasis location: gallbladder Cholecystitis presence: without cholecystitis Biliary obstruction: without biliary obstruction Qualified Code(s): K80.20 - Calculus of gallbladder without cholecystitis without obstruction Code(s): K80.20 - Calculus of gallbladder without cholecystitis without obstruction Status: Acute Assessment and Plan: Eventually with he will need cholecystectomy (7) Diabetes mellitus: Qualifiers: Diabetes mellitus type: type 2 Diabetes mellitus long term care pharmacist insulin use: without detention use Diabetes mellitus complication status: with circulatory complication Diabetes mellitus complication detail: with other circulatory complications Qualified Code(s): E11.59 - Type 2 diabetes mellitus with other circulatory complications Code(s): E11.9 - Type 2 diabetes mellitus without complications Status: Acute Assessment and Plan: See above (8) Hypercholesterolemia: Code(s): E78.00 - Pure hypercholesterolemia, unspecified Status: Acute Assessment and Plan: Statin (9) GERD (gastroeso
[2023-09-05] MEDS: FUROSEMIDE INJ 40 MG/4 ML VIAL IV PUSH ×2 (10:00→17:03)
[2023-09-05] MEDS: SODIUM CHLORIDE 0.9% IV 500 ML 10 ML (10:17)
[2023-09-05] MEDS: LORazepam INJ (*CRX) 2 MG/ML VIAL 0.5 MG IV PUSH (11:03)
--- NOTE | 2023-09-05 12:17 | PM.PNCARD ---
Progress Note: A&P Assessment and Plan (1) ST elevation (STEMI) myocardial infarction: Qualifiers: Involved coronary artery: unspecified coronary artery Qualified Code(s): I21.3 - ST elevation (STEMI) myocardial infarction of unspecified site Code(s): I21.3 - ST elevation (STEMI) myocardial infarction of unspecified site Status: Acute Plan 58-year-old man with very complex situation. He has multivessel coronary disease treated emergently yesterday with PTCA of thrombosed RCA stenosis. This is a heavily calcified lesion which was very difficult to intervene upon in the past. He now also has high-grade proximal LAD and proximal circumflex disease as noted in the quality control lab tech report. Unfortunately a concurrent to all of this he has significant pancreatitis, presumably gallstone pancreatitis and will likely require surgical treatment of that. At this point aggressive supportive care should be continued obviously dual anti-platelet therapy is mandatory at this time. He will hopefully recover and be able to undergo cholecystectomy followed by surgical myocardial revascularization at a tertiary care center given the complexity of this situation Da Stringer MD [facility] Subjective Date/time seen: Date of service: 09/05/23 12:17 Interval history: Follow-up visit in this very complicated 58-year-old man with: Coronary artery disease presenting with inferior ST-elevation [place] resulting from thrombosis in previously stented segment of the right coronary artery. This was treated with PTCA with religious of flow. Patient has significant LAD and proximal circumflex disease as detailed in the report and ultimately will likely require surgical revascularization given this anatomy. Unfortunately he also has acute pancreatitis presumably gallstone pancreatitis based on ultrasound results. Plan is for conservative treatment of this and ultimately he will presumably will also require cholecystectomy. Patient is reporting anxious anxiety regarding his multitude of problems otherwise not having any chest pain or significant dyspnea at this time. NG suction in place regarding his pancreatitis Exam Const: General: comfortable and no acute distress HENMT: Mouth: Yes moist mucous membranes Eyes: Sclera: sclerae normal Neck: Neck: supple Resp: Effort & Inspection: normal respiratory effort Other: Scattered rhonchi noted Cardio: Rate: regular rate Rhythm: regular rhythm Other: No murmur no gallop GI: Other: Bowel sounds hypoactive Skin: General skin exam: normal color Neuro: Other: Alert and oriented x3 Extrem: Other: Well perfused Objective Data Vital Signs Vital Signs: Vital Signs - 24 hr 09/04/23 12:41 12/10/23 12:45 09/04/23 12:46 Temperature Pulse Rate 88 85 89 Respiratory Rate 23 H 20 25 H Blood Pressure 90/73 L Pulse Oximetry 94 96 95 Oxygen Delivery Oxygen Flow Rate Fraction of Inspired Oxygen 09/04/23 13:00 09/04/23 13:01 09/04/23 13:15 Temperature Pulse Rate 84 84 82 Respiratory Rate 16 18 20 Blood Pressure 84/62 L 97/79 L Pulse Oximetry 96 95 97 Oxygen Delivery Oxygen Flow Rate Fraction of Inspired Oxygen 09/04/23 13:16 09/04/23 13:37 09/04/23 14:00 Temperature Pulse Rate 86 84 88 Respiratory Rate 17 21 H 17 Blood Pressure Pulse Oximetry 98 96 97 Oxygen Delivery Oxygen Flow Rate Fraction of Inspired Oxygen 09/04/23 14:02 09/04/23 14:23 09/04/23 14:40 Temperature Pulse Rate 86 89 84 Respiratory Rate 24 H 20 18 Blood Pressure 111/82 Pulse Oximetry 98 92 95 Oxygen Delivery Oxygen Flow Rate Fraction of Inspired Oxygen 09/04/23 14:45 09/04/23 14:46 09/04/23 16:00 Temperature Pulse Rate 85 86 86 Respiratory Rate 18 17 22 H Blood Pressure 97/83 L 116/85 Pulse Oximetry 94 95 95 Oxygen Delivery Oxygen Flow Rate Fraction of Inspired Oxygen 09/04/23
[2023-09-05 13:21] LABS: Glucose Point of Care 167 mg/dl (65-105)
--- NOTE | 2023-09-05 13:25 | PM.PNGS ---
Progress Note: A&P Assessment and Plan (1) Acute pancreatitis: Qualifiers: Acute pancreatitis complication: no infection or necrosis Pancreatitis type: biliary Qualified Code(s): K85.10 - Biliary acute pancreatitis without necrosis or infection Code(s): K85.90 - Acute pancreatitis without necrosis or infection, unspecified Status: Acute Assessment and Plan: Lipase down to 2,943 today. Abdominal pain better with being on the Dilaudid TRAINING SYSTEMS OFFICER pump. Abdominal x-ray this morning suggested ileus. NG tube now in place. Continue medical management with IV fluids and pain control. (2) Cholelithiasis: Qualifiers: Cholelithiasis location: gallbladder Cholecystitis presence: without cholecystitis Biliary obstruction: without biliary obstruction Qualified Code(s): K80.20 - Calculus of gallbladder without cholecystitis without obstruction Code(s): K80.20 - Calculus of gallbladder without cholecystitis without obstruction Status: Acute Assessment and Plan: Will eventually need an interval cholecystectomy once he recovers and is cleared from a cardiac standpoint. This may need to be done at a tertiary care facility given his cardiac issues. (3) Ileus: Code(s): K56.7 - Ileus, unspecified Status: Acute Assessment and Plan: Continue NG tube decompression and bowel rest (4) ST elevation (STEMI) myocardial infarction: Qualifiers: Involved coronary artery: unspecified coronary artery Qualified Code(s): I21.3 - ST elevation (STEMI) myocardial infarction of unspecified site Code(s): I21.3 - ST elevation (STEMI) myocardial infarction of unspecified site Status: Acute Plan I have discussed the patient's case and plan of care with Dr. Reagan. Subjective Subjective Date/Time Seen: 09/05/23 13:25 Patient reports: pain is less (currently being controlled with a TRAINING SYSTEMS OFFICER pump) Interval history: This is a 58 year old man who presented with [facility] and acute pancreatitis, presumably biliary. He had a cardiac cath with PCI yesterday and is on dual-antiplatelet therapy. Chart reviewed. He is now seen in the ICU. He is mildly tachycardic this morning. He was noted to have abdominal distention that prompted an abdominal x-ray this morning and suggested an ileus. Patient denies nausea or vomiting. NG tube was placed this am. He reports his abdominal pain has actually improved. He denies any chest pain. He denies flatus today, but did have some yesterday. His last BM was 2 days ago. Exam Const: General: ill appearing Orientation/consciousness: patient oriented x3 GI: Inspection: distended GI Palp: Yes Firmness to palpation present (GI) (firmness across the upper abdomen), Yes Tenderness to palpation present (GI) (diffusely tender but most focally in the upper abdomen) and Yes Guarding due to palpation present (GI) (with palpation along the upper abdomen) Auscultation: High-pitched bowel sounds present (very hypoactive) Objective Data Vital Signs Vital Signs: Vital Signs - 24 hr 09/04/23 13:37 09/04/23 14:00 09/04/23 14:02 Temperature Pulse Rate 84 88 86 Respiratory Rate 21 H 17 24 H Blood Pressure 111/82 Pulse Oximetry 96 97 98 Oxygen Delivery Oxygen Flow Rate Fraction of Inspired Oxygen 09/04/23 14:23 09/04/23 14:40 09/04/23 14:45 Temperature Pulse Rate 89 84 85 Respiratory Rate 20 18 18 Blood Pressure Pulse Oximetry 92 95 94 Oxygen Delivery Oxygen Flow Rate Fraction of Inspired Oxygen 09/04/23 14:46 09/04/23 16:00 09/04/23 14:47 Temperature Pulse Rate 86 86 85 Respiratory Rate 17 22 H 17 Blood Pressure 97/83 L 116/85 Pulse Oximetry 95 95 95 Oxygen Delivery Oxygen Flow Rate Fraction of Inspired Oxygen 09/04/23 15:00 09/04/23 15:01 09/04/23 15:15 Temperature Pulse Rate 83 83 83 Respiratory Rate 19 17 16 Blood Pressure 103/91 H Pulse Oximetry 96 97 94 Oxygen Delivery Oxyge
[2023-09-05] MEDS: ALBUTEROL SULFATE NEB 2.5 MG/3 ML INH INHALATION ×2 (13:29→21:36)
[2023-09-05 17:16] LABS: Glucose Point of Care 187 mg/dl (65-105)
[2023-09-05 21:26] LABS: Anion Gap 10 mmol/L (8-16); Blood Urea Nitrogen 21 mg/dL (9-20); Calcium 7.7 mg/dL (8.4-10.2); Carbon Dioxide 21 mmol/L (22-30); Chloride 103 mmol/L (98-107); Estimated CRCL calculation 51 ml/min; Estimated Glomerular Filt Rate 56; Glucose 178 mg/dL (65-110); Magnesium 1.8 mg/dL (1.6-2.3); Potassium 4.4 mmol/L (3.4-5.0); Sodium 134 mmol/L (137-145)
[2023-09-06] VITALS (21 sets, daily range): BP systolic 117–147; BP diastolic 82–104; PULSE 88–113; RESP 14–27; TEMP 36.4–37; O2SAT 93–99
--- NOTE | 2023-09-06 | ECHO_ITS ---
Patient Info Name: Johanna Barbosa Age: 58 years : 1965 Gender: Male Ht: 67 in Wt: 179 lbs BSA: 1.98 m2 HR: 88 bpm BP: 123 / 102 mmHg Heart Rhythm: Sinus Rhythm Technical Quality: Good Exam Date: 09/06/2023 8:59 AM Exam Location: Echo Lab Patient Status: Inpatient Admit Date: 09/04/2023 Staff Ordering Physician: Praful Griggs MD Tile Installer: Hasmukh Oscar RDCS Attending Provider: Ranjit Navarrete MD Exam Type: CA echo doppler color flow Study Info Indications - STEMI Complete two-dimensional, color flow and Doppler transthoracic echocardiogram is performed. Summary 1. Complete two-dimensional, color flow and Doppler transthoracic echocardiogram is performed. 2. Left ventricular chamber dimension is normal. 3. Left ventricular systolic function is normal, estimated at 55-60%. 4. There is no increased left ventricular wall thickness. 5. The left ventricular diastolic function is grade I diastolic dysfunction. 6. The basal inferior wall is akinetic. 7. The inferoseptal wall, mid inferior wall, basal inferolateral wall, and mid inferolateral wall are hypokinetic. 8. Left atrial chamber dimension is mildly enlarged. 9. There is moderate aortic valve calcification. 10. There is mild mitral valve regurgitation. 11. There is mild tricuspid valve regurgitation. 12. There is mild pulmonic regurgitation. Left Ventricle Left ventricular chamber dimension is normal. Left ventricular systolic function is normal, estimated at 55-60%. There is no increased left ventricular wall thickness. The left ventricular diastolic function is grade I diastolic dysfunction. The basal inferior wall is akinetic. The inferoseptal wall, mid inferior wall, basal inferolateral wall, and mid inferolateral wall are hypokinetic. All other lugo appear normal. Right Ventricle Right ventricular chamber dimension is normal. Right ventricular systolic function is normal. Left Atria Left atrial chamber dimension is mildly enlarged. Right Atria Right atrial chamber dimension is normal. Atrial Septum Intact interatrial septum visualized by color flow imaging. Aortic Valve The aortic valve is trileaflet. There is no aortic valve stenosis. There is trace aortic valve regurgitation. There is moderate aortic valve calcification. Pulmonic Valve The pulmonic valve is normal. There is no pulmonic valve stenosis. There is mild pulmonic regurgitation. Mitral Valve The mitral valve has calcified annulus. There is no mitral valve stenosis. There is mild mitral valve regurgitation. Tricuspid Valve The tricuspid valve leaflets are normal. There is no significant tricuspid valve stenosis. There is mild tricuspid valve regurgitation. No pulmonary hypertension, estimated pulmonary arterial systolic pressure is 16 mmHg. Pericardium/Pleural The pericardium appears normal. There is no pericardial effusion. Inferior Vena Cava Normal inferior vena cava with >50% collapse upon inspiration consistent with normal right atrial pressure, 10 mmHg. Aorta The aortic root size at the sinus of Valsalva is mildly dilated. Left Ventricular Outflow Tract Name Value Normal LVOT 2D LVOT Diameter 2.1 cm LVOT Doppler LVOT Peak Gradi
[2023-09-06] MEDS: PIPERACILLN/TAZ 3.375GM/NS50ML 3.375 GM/50 ML BAG IVPB ×4 (01:28→19:30)
[2023-09-06 02:02] LABS: Glucose Point of Care 168 mg/dl (65-105)
[2023-09-06] MEDS: HYDROmorphon 0.2MG/ML PCA(*CRX 6 MG/30 ML PCA.VIAL 1 MG IV CONT ×2 (02:02→13:51)
[2023-09-06 04:42] LABS: Hematocrit 40.8 % (42.0-52.0); Hemoglobin 12.9 g/dL (14.0-18.0); Mean Corpuscular HGB Conc 31.6 g/dl (32-36); Mean Corpuscular Hemoglobin 30.1 pg (26-34); Mean Corpuscular Volume 95.3 fl (80-100); Mean Platelet Volume 10.9 fl (7.4-10.4); Platelet Count Result 179 k/mm3 (150-375); Red Blood Count 4.28 M/mm3 (4.6-6.20); Red Cell Distribution Width 13.5 % (11.5-14.5); White Blood Count 13.4 K/mm3 (4.5-10.0)
[2023-09-06 04:51] LABS: Alanine Aminotransferase 46 U/L (6-50); Albumin Level 3.3 g/dL (3.5-5.1); Alkaline Phosphatase 84 U/L (38-126); Anion Gap 9 mmol/L (8-16); Aspartate Amino Transferase 55 U/L (17-59); Blood Urea Nitrogen 21 mg/dL (9-20); Calcium 7.7 mg/dL (8.4-10.2); Carbon Dioxide 23 mmol/L (22-30); Chloride 103 mmol/L (98-107); Estimated CRCL calculation 59 ml/min; Estimated Glomerular Filt Rate > 60; Glucose 182 mg/dL (65-110); Lipase 545 U/L (23-300); Magnesium 1.8 mg/dL (1.6-2.3); Potassium 4.3 mmol/L (3.4-5.0); Sodium 135 mmol/L (137-145)
[2023-09-06] MEDS: ASPIRIN 81 MG ENTERIC TABLET PO (08:13)
[2023-09-06] MEDS: ATORVASTATIN 40 MG TABLET 80 MG PO (08:13)
[2023-09-06] MEDS: PANTOPRAZOLE SODIUM IV 40 MG VIAL IV PUSH (08:14)
[2023-09-06] MEDS: ENOXAPARIN 40 MG/0.4 ML SYRINGE SUB-Q (08:14)
[2023-09-06] MEDS: TICAGRELOR 90 MG TABLET PO ×2 (08:15→19:29)
[2023-09-06] MEDS: METOPROLOL TARTRATE 12.5 MG TABLET PO ×2 (08:46→19:29)
[2023-09-06] MEDS: MAGNESIUM SULF 1 GM/D5W 100 ML 1 GM/100 ML BAG IVPB (08:46)
[2023-09-06] MEDS: INSULIN GLARGINE (*BKC) 100 UNITS/ML 10 UNITS SUB-Q (08:46)
--- NOTE | 2023-09-06 09:51 | WPDINTPN ---
Progress Note: A&P Assessment and Plan (1) ST elevation (STEMI) myocardial infarction: Qualifiers: Involved coronary artery: unspecified coronary artery Qualified Code(s): I21.3 - ST elevation (STEMI) myocardial infarction of unspecified site Code(s): I21.3 - ST elevation (STEMI) myocardial infarction of unspecified site Status: Acute Assessment and Plan: Patient has history of coronary disease non STEMI and PCI of RCA. Now admitted with STEMI status post angioplasty and suctioning of thrombus in RCA stent ICU telemetry monitoring Pending echocardiogram Off heparin now Aspirin, beta-rajesh and Brilinta Statin (2) Acute pancreatitis: Qualifiers: Acute pancreatitis complication: no infection or necrosis Pancreatitis type: biliary Qualified Code(s): K85.10 - Biliary acute pancreatitis without necrosis or infection Code(s): K85.90 - Acute pancreatitis without necrosis or infection, unspecified Status: Acute Assessment and Plan: Patient has acute pancreatitis likely secondary to gallstones.. he is also on Ozempic which can cause pancreatitis CT scan confirms acute pancreatitis and cholelithiasis but there is no dilatation of duct Surgery and GI have evaluated the patient He will eventually need cholecystectomy Bilirubin is normal Right upper quadrant ultrasound Echogenic liver, most commonly due to steatosis but also can be seen with hepatitis and fibrosis. Gallbladder wall thickening and pericholecystic fluid, nonspecific findings in the context of pancreatitis. Negative sonographic Zarco sign, confounded by the concurrent use of pain medication. Appears to have developed some ileus which is improved Start clear liquid diet and continue pain control He is on dilaudid HEAD OF MATHEMATICS for pain control (3) DKA (diabetic ketoacidosis): Code(s): E11.10 - Type 2 diabetes mellitus with ketoacidosis without coma Status: Acute Assessment and Plan: Patient was in DKA but his anion gap has closed and I will transition to subcutaneous Lantus and insulin Discontinue further IV fluids he appears to be developing pulmonary edema (4) Pulmonary edema: Code(s): J81.1 - Chronic pulmonary edema Status: Acute Assessment and Plan: 09/05 Patient appears slightly more short of breath this morning although he is only on 2 L nasal cannula. Wheezing on exam Chest x-ray showed pulmonary edema Patient has been receiving IV fluids for his DKA which are now off Patient was given Lasix and his symptoms have improved P.r.n. albuterol 09/06 on 2 L nasal cannula and no respiratory distress (5) Ileus: Code(s): K56.7 - Ileus, unspecified Status: Acute Assessment and Plan: 09/05 Abdominal appear distended on exam. Patient denies any nausea vomiting at this time but KUB confirms ileus Will place NG tube to low intermittent suction 09/06 appears to be better no nausea vomiting. Belly still distended but improved as compared to yesterday. Bowel sounds are decreased but present. Will trial clear liquid diet. If patient tolerates without any symptoms will consider removing NG tube which is clamped now (6) Cholelithiasis: Qualifiers: Cholelithiasis location: gallbladder Cholecystitis presence: without cholecystitis Biliary obstruction: without biliary obstruction Qualified Code(s): K80.20 - Calculus of gallbladder without cholecystitis without obstruction Code(s): K80.20 - Calculus of gallbladder without cholecystitis without obstruction Status: Acute Assessment and Plan: Eventually with he will need cholecystectomy (7) Diabetes mellitus: Qualifiers: Diabetes mellitus type: type 2 Diabetes mellitus terminal system operator insulin use: without terminal system operator use Diabetes mellitus complication status: with circulatory complication Diabetes mellitus complication detail: with other circulatory complications Qualified Code(s): E11.59
--- NOTE | 2023-09-06 11:01 | PCNFU ---
Nutrition Follow-Up Complete: Inadequate oral intake related to acute pancreatitis, ileus as evidenced by NPO status goal: Diet advancement as medically able Patient is progressing towards goal. We will continue current goal. Pt current nutrition is Clear liquids. Nutrition recommendation:advance as tolerated to [facility]. Last recorded weight is 81.5 kg, stable Bowel Motility:+BM reported 09/03 Labs Reviewed:Glu 182, BUN 21, Na 135, Alb 3.3,Hct 40.8, Hgb 12.9 Meds Noted:Lovenox, Dilaudid, Lantus, Protonix Skin:WNL Additional Notes: Patient diet order has advanced to clear liquids. NGT removed. IMU status. Recommend advancing diet as tolerated to [facility]. monitoring diet orders, plan of care, weights, labs Follow up in 3 days
--- NOTE | 2023-09-06 11:05 | PM.PNGS ---
Progress Note: A&P Assessment and Plan (1) Acute pancreatitis: Qualifiers: Acute pancreatitis complication: no infection or necrosis Pancreatitis type: biliary Qualified Code(s): K85.10 - Biliary acute pancreatitis without necrosis or infection Code(s): K85.90 - Acute pancreatitis without necrosis or infection, unspecified Status: Acute Assessment and Plan: Resolving. Start clear liquids once ileus resolved. (2) Cholelithiasis: Qualifiers: Cholelithiasis location: gallbladder Cholecystitis presence: without cholecystitis Biliary obstruction: without biliary obstruction Qualified Code(s): K80.20 - Calculus of gallbladder without cholecystitis without obstruction Code(s): K80.20 - Calculus of gallbladder without cholecystitis without obstruction Status: Acute Assessment and Plan: Eventual cholecystectomy will be recommended to prevent recurrent pancreatitis. Patient will need to be referred to a general surgeon wherever cardiology is recommending for CABG. Surgery will be too high risk to be performed at this facility. (3) Ileus: Code(s): K56.7 - Ileus, unspecified Status: Acute Assessment and Plan: Patient bloated after trial of clear liquids. Continue NG decompression and bowel rest today. Possibly remove NG tomorrow if improving. (4) ST elevation (STEMI) myocardial infarction: Qualifiers: Involved coronary artery: unspecified coronary artery Qualified Code(s): I21.3 - ST elevation (STEMI) myocardial infarction of unspecified site Code(s): I21.3 - ST elevation (STEMI) myocardial infarction of unspecified site Status: Acute Subjective Subjective Date/Time Seen: 09/06/23 11:05 Interval history: Tried clear liquids with NG clamped. Now more bloated and short of breath. Passing flatus. Exam GI: Inspection: distended GI Palp: Yes Soft to palpation, No Tenderness to palpation present (GI) and No Guarding due to palpation present (GI) Percussion: Yes tympanic to percussion Auscultation: Hypoactive bowel sounds present Objective Data Vital Signs Vital Signs: Vital Signs - 24 hr 09/05/23 13:29 09/05/23 13:39 09/05/23 12:00 Temperature Pulse Rate 105 H 113 H 110 H Respiratory Rate 18 18 Blood Pressure Pulse Oximetry Oxygen Delivery Oxygen Flow Rate Fraction of Inspired Oxygen 09/05/23 12:00 09/05/23 12:00 09/05/23 14:00 Temperature 37.2 C Pulse Rate 110 H 110 H 110 H Respiratory Rate 18 20 Blood Pressure 125/92 H Pulse Oximetry 95 94 Oxygen Delivery Nasal Cannula Oxygen Flow Rate 2 Fraction of Inspired Oxygen 28 09/05/23 14:00 09/05/23 16:00 09/05/23 16:00 Temperature 37.1 C Pulse Rate 110 H 107 H 107 H Respiratory Rate 20 20 Blood Pressure 122/94 H Pulse Oximetry 95 95 Oxygen Delivery Nasal Cannula Oxygen Flow Rate 2 Fraction of Inspired Oxygen 28 09/05/23 16:00 09/05/23 18:00 09/05/23 18:00 Temperature 37.3 C Pulse Rate 107 H 108 H 108 H Respiratory Rate 20 22 H Blood Pressure 112/82 131/96 H Pulse Oximetry 95 93 Oxygen Delivery Oxygen Flow Rate Fraction of Inspired Oxygen 09/05/23 19:59 09/05/23 20:52 09/05/23 20:00 Temperature 37.0 C Pulse Rate 106 H 115 H 108 H Respiratory Rate 17 15 Blood Pressure 128/82 Pulse Oximetry 94 96 Oxygen Delivery Nasal Cannula Oxygen Flow Rate 2 Fraction of Inspired Oxygen 09/05/23 21:36 09/05/23 21:43 09/05/23 20:00 Temperature Pulse Rate 101 H 103 H 107 H Respiratory Rate 14 15 Blood Pressure Pulse Oximetry Oxygen Delivery Oxygen Flow Rate Fraction of Inspired Oxygen 09/05/23 22:00 09/05/23 22:00 09/05/23 21:40 Temperature Pulse Rate 105 H 105 H 103 H Respiratory Rate 19 Blood Pressure 117/88 Pulse Oximetry 95 95 Oxygen Delivery Nasal Cannula Oxygen Flow Rate 2 Fraction of Inspired Oxygen 09/06/23 00:00
[2023-09-06 12:05] LABS: Glucose Point of Care 171 mg/dl (65-105)
--- NOTE | 2023-09-06 15:32 | PM.PNCARD ---
Progress Note: A&P Assessment and Plan (1) ST elevation (STEMI) myocardial infarction: Qualifiers: Involved coronary artery: unspecified coronary artery Qualified Code(s): I21.3 - ST elevation (STEMI) myocardial infarction of unspecified site Code(s): I21.3 - ST elevation (STEMI) myocardial infarction of unspecified site Status: Acute Assessment and Plan: 58-year-old man with very complex situation. He has multivessel coronary disease treated emergently yesterday with PTCA of thrombosed RCA stenosis. This is a heavily calcified lesion which was very difficult to intervene upon in the past. He now also has high-grade proximal LAD and proximal circumflex disease as noted in the seed laboratory assistant report. Unfortunately a concurrent to all of this he has significant pancreatitis, presumably gallstone pancreatitis and will likely require surgical treatment. He has been stable from a cardiac perspective s/p PTCA. Continue DAPT with ASA, Brilinta Continue statin Continue aggressive risk factor modification for CAD Cardiac rehab referral sent Ultimately will require cholecystectomy followed by PCI vs surgical revascularization at a tertiary care center. Subjective Date/time seen: 09/06/23 15:32 Interval history: Cardiology follow up for CAD, STEMI Having significant abdominal pain. He Denies chest pain or shortness of breath. Vitals stable, no arrhythmias on telemetry. Complaining of inability to sleep at night and requesting his home trazodone Exam Const: General: comfortable and no acute distress HENMT: Mouth: Yes moist mucous membranes Eyes: Sclera: sclerae normal Neck: Neck: supple Resp: Effort & Inspection: normal respiratory effort Other: Scattered rhonchi noted Cardio: Rate: regular rate Rhythm: regular rhythm Other: No murmur no gallop GI: Other: Bowel sounds hypoactive Skin: General skin exam: normal color Neuro: Other: Alert and oriented x3 Extrem: Right lower extremity: no edema Left lower extremity: no edema Other: Well perfused Objective Data Vital Signs Vital Signs: Vital Signs - 24 hr 09/05/23 16:00 09/05/23 16:00 09/05/23 16:00 Temperature 37.3 C Pulse Rate 107 H 107 H 107 H Respiratory Rate 20 20 Blood Pressure 112/82 Pulse Oximetry 95 95 Oxygen Delivery Nasal Cannula Oxygen Flow Rate 2 Fraction of Inspired Oxygen 28 09/05/23 18:00 09/05/23 18:00 09/05/23 19:59 Temperature Pulse Rate 108 H 108 H 106 H Respiratory Rate 22 H 17 Blood Pressure 131/96 H Pulse Oximetry 93 94 Oxygen Delivery Nasal Cannula Oxygen Flow Rate 2 Fraction of Inspired Oxygen 09/05/23 20:52 09/05/23 20:00 09/05/23 21:36 Temperature 37.0 C Pulse Rate 115 H 108 H 101 H Respiratory Rate 15 14 Blood Pressure 128/82 Pulse Oximetry 96 Oxygen Delivery Oxygen Flow Rate Fraction of Inspired Oxygen 09/05/23 21:43 09/05/23 20:00 09/05/23 22:00 Temperature Pulse Rate 103 H 107 H 105 H Respiratory Rate 15 Blood Pressure Pulse Oximetry Oxygen Delivery Oxygen Flow Rate Fraction of Inspired Oxygen 09/05/23 22:00 09/05/23 21:40 09/06/23 00:00 Temperature 36.9 C Pulse Rate 105 H 103 H 97 Respiratory Rate 19 19 Blood Pressure 117/88 131/82 Pulse Oximetry 95 95 95 Oxygen Delivery Nasal Cannula Oxygen Flow Rate 2 Fraction of Inspired Oxygen 28 09/06/23 00:00 09/06/23 00:00 09/06/23 02:02 Temperature Pulse Rate 98 100 Respiratory Rate 19 20 Blood Pressure Pulse Oximetry 95 98 Oxygen Delivery Nasal Cannula Oxygen Flow Rate 2 Fraction of Inspired Oxygen 09/06/23 02:02 09/06/23 02:00 09/06/23 02:00 Temperature Pulse Rate 98 98 Respiratory Rate 20 14 Blood Pressure 147/98 H Pulse Oximetry 98 97 Oxygen Delivery Oxygen Flow Rate Fraction of Inspired Oxygen 09/06/23 03:42 09/06/23 04:00 09/06/23 04:00 Temperature
[2023-09-06 16:55] LABS: Glucose Point of Care 111 mg/dl (65-105)
[2023-09-06] MEDS: ALBUTEROL SULFATE NEB 2.5 MG/3 ML INH INHALATION (17:12)
[2023-09-06] MEDS: FUROSEMIDE INJ 40 MG/4 ML VIAL IV PUSH (18:13)
[2023-09-06 19:48] LABS: Glucose Point of Care 115 mg/dl (65-105)
[2023-09-07] VITALS (18 sets, daily range): BP systolic 124–149; BP diastolic 87–100; PULSE 10–105; RESP 14–20; TEMP 36.8–37; O2SAT 94–99
[2023-09-07] MEDS: PIPERACILLN/TAZ 3.375GM/NS50ML 3.375 GM/50 ML BAG IVPB ×4 (02:11→20:01)
[2023-09-07 04:47] LABS: Hematocrit 37.9 % (42.0-52.0); Hemoglobin 12.4 g/dL (14.0-18.0); Mean Corpuscular HGB Conc 32.7 g/dl (32-36); Mean Corpuscular Hemoglobin 29.7 pg (26-34); Mean Corpuscular Volume 90.9 fl (80-100); Mean Platelet Volume 11.1 fl (7.4-10.4); Platelet Count Result 169 k/mm3 (150-375); Red Blood Count 4.17 M/mm3 (4.6-6.20); Red Cell Distribution Width 13.5 % (11.5-14.5); White Blood Count 10.9 K/mm3 (4.5-10.0)
[2023-09-07 05:05] LABS: Alanine Aminotransferase 38 U/L (6-50); Albumin Level 3.5 g/dL (3.5-5.1); Alkaline Phosphatase 92 U/L (38-126); Anion Gap 14 mmol/L (8-16); Aspartate Amino Transferase 33 U/L (17-59); Bilirubin,Total 1.4 mg/dL (0.2-1.3); Blood Urea Nitrogen 20 mg/dL (9-20); Calcium 8.2 mg/dL (8.4-10.2); Carbon Dioxide 22 mmol/L (22-30); Chloride 99 mmol/L (98-107); Estimated CRCL calculation 80 ml/min; Estimated Glomerular Filt Rate > 60; Glucose 123 mg/dL (65-110); Lipase 355 U/L (23-300); Magnesium 2.2 mg/dL (1.6-2.3); Potassium 3.5 mmol/L (3.4-5.0); Sodium 135 mmol/L (137-145)
[2023-09-07] MEDS: HYDROmorphon 0.2MG/ML PCA(*CRX 6 MG/30 ML PCA.VIAL 1 MG IV CONT ×2 (05:19→23:00)
[2023-09-07 08:04] LABS: Glucose Point of Care 126 mg/dl (65-105)
[2023-09-07] MEDS: ATORVASTATIN 40 MG TABLET 80 MG PO (08:48)
[2023-09-07] MEDS: METOPROLOL TARTRATE 12.5 MG TABLET PO ×2 (08:48→20:01)
[2023-09-07] MEDS: ASPIRIN 81 MG ENTERIC TABLET PO (08:48)
[2023-09-07] MEDS: INSULIN GLARGINE (*BKC) 100 UNITS/ML 10 UNITS SUB-Q (08:49)
[2023-09-07] MEDS: ENOXAPARIN 40 MG/0.4 ML SYRINGE SUB-Q (08:49)
[2023-09-07] MEDS: PANTOPRAZOLE SODIUM IV 40 MG VIAL IV PUSH (08:50)
[2023-09-07] MEDS: TICAGRELOR 90 MG TABLET PO ×2 (08:50→20:02)
--- NOTE | 2023-09-07 09:45 | WPDINTPN ---
Progress Note: A&P Assessment and Plan (1) ST elevation (STEMI) myocardial infarction: Qualifiers: Involved coronary artery: unspecified coronary artery Qualified Code(s): I21.3 - ST elevation (STEMI) myocardial infarction of unspecified site Code(s): I21.3 - ST elevation (STEMI) myocardial infarction of unspecified site Status: Acute Assessment and Plan: Patient has history of coronary disease non STEMI and PCI of RCA. Now admitted with STEMI status post angioplasty and suctioning of thrombus in RCA stent ICU telemetry monitoring Off heparin now Aspirin, beta-rajesh and Brilinta Statin echo Summary ? 1. Complete two-dimensional, color flow and Doppler transthoracicechocardiogram is performed. ? 2. Left ventricular chamber dimension is normal. ? 3. Left ventricular systolic function is normal, estimated at 55-60%. ? 4. There is no increased left ventricular wall thickness. ? 5. The left ventricular diastolic function is grade I diastolic dysfunction. ? 6. The basal inferior wall is akinetic. ? 7. The inferoseptal wall, mid inferior wall, basal inferolateral wall, andmid inferolateral wall are hypokinetic. ? 8. Left atrial chamber dimension is mildly enlarged. ? 9. There is moderate aortic valve calcification. ? 10. There is mild mitral valve regurgitation. ? 11. There is mild tricuspid valve regurgitation. ? 12. There is mild pulmonic regurgitation. (2) Acute pancreatitis: Qualifiers: Acute pancreatitis complication: no infection or necrosis Pancreatitis type: biliary Qualified Code(s): K85.10 - Biliary acute pancreatitis without necrosis or infection Code(s): K85.90 - Acute pancreatitis without necrosis or infection, unspecified Status: Acute Assessment and Plan: Patient has acute pancreatitis likely secondary to gallstones.. he is also on Ozempic which can cause pancreatitis CT scan confirms acute pancreatitis and cholelithiasis but there is no dilatation of duct Surgery and GI have evaluated the patient He will eventually need cholecystectomy Bilirubin is normal Right upper quadrant ultrasound Echogenic liver, most commonly due to steatosis but also can be seen with hepatitis and fibrosis. Gallbladder wall thickening and pericholecystic fluid, nonspecific findings in the context of pancreatitis. Negative sonographic Zarco sign, confounded by the concurrent use of pain medication. Appears to have developed some ileus which is improved retry clear liquid diet today and continue pain control He is on dilaudid CARROTER for pain control (3) DKA (diabetic ketoacidosis): Code(s): E11.10 - Type 2 diabetes mellitus with ketoacidosis without coma Status: Acute Assessment and Plan: Patient was in DKA but his anion gap has closed and I have transitioned to subcutaneous Lantus and insulin discontinued further IV fluids he appears to be developing pulmonary edema (4) Pulmonary edema: Code(s): J81.1 - Chronic pulmonary edema Status: Acute Assessment and Plan: 09/05 Patient appears slightly more short of breath this morning although he is only on 2 L nasal cannula. Wheezing on exam Chest x-ray showed pulmonary edema Patient has been receiving IV fluids for his DKA which are now off Patient was given Lasix and his symptoms have improved P.r.n. albuterol 09/06 on 2 L nasal cannula and no respiratory distress. In the evening patient had little bit more shortness of breath and was given dose of Lasix 09/07 on nasal cannula with no respiratory distress and feels much better. continue incentive spirometry (5) Ileus: Code(s): K56.7 - Ileus, unspecified Status: Acute Assessment and Plan: 09/05 Abdominal appear distended on exam. Patient denies any nausea vomiting at this time but KUB confirms ileus Will place NG tube to low intermittent suction 09/06 appears to be better no nausea vomiting. Belly still distended but improved as c
[2023-09-07] MEDS: POTASSIUM CHLORIDE 20 MEQ PACKET (FOR LIQUID) 40 MEQ FEED TUBE (11:17)
[2023-09-07 12:10] LABS: Glucose Point of Care 108 mg/dl (65-105)
--- NOTE | 2023-09-07 14:06 | PM.PNCARD ---
Progress Note: A&P Assessment and Plan (1) ST elevation (STEMI) myocardial infarction: Qualifiers: Involved coronary artery: unspecified coronary artery Qualified Code(s): I21.3 - ST elevation (STEMI) myocardial infarction of unspecified site Code(s): I21.3 - ST elevation (STEMI) myocardial infarction of unspecified site Status: Acute Assessment and Plan: 58-year-old man with very complex situation. He has multivessel coronary disease treated emergently with PTCA of thrombosed RCA stenosis. This is a heavily calcified lesion which was very difficult to intervene upon in the past. He now also has high-grade proximal LAD and proximal circumflex disease as noted in the labor delivery specialist report. Unfortunately concurrent to all of this he has significant pancreatitis, presumably gallstone pancreatitis and will likely require surgical treatment. He has been stable from a cardiac perspective s/p PTCA. Continue DAPT with ASA, Brilinta Continue statin Continue aggressive risk factor modification for CAD Cardiac rehab referral sent Ultimately will require cholecystectomy followed by PCI vs surgical revascularization at a tertiary care center. Will arrange for close outpatient follow up with Dr. Navarrete (2) Acute pancreatitis: Qualifiers: Acute pancreatitis complication: no infection or necrosis Pancreatitis type: biliary Qualified Code(s): K85.10 - Biliary acute pancreatitis without necrosis or infection Code(s): K85.90 - Acute pancreatitis without necrosis or infection, unspecified Status: Acute Assessment and Plan: General Surgery on board Subjective Date/time seen: 09/07/23 14:06 Interval history: Cardiology follow up for CAD, STEMI Still with abdominal pain but feeling a bit better. NG tube in place. Doing okay with clear liquids. No chest pain. Exam Const: General: no acute distress HENMT: Other: NG tube in place Resp: Effort & Inspection: normal respiratory effort Cardio: Rate: regular rate Rhythm: regular rhythm Skin: General skin exam: normal color Neuro: Speech: normal speech Psych: Mental Status: mental status grossly normal Affect: normal affect Objective Data Vital Signs Vital Signs: Vital Signs - 24 hr 09/06/23 16:00 09/06/23 16:00 09/06/23 17:13 Temperature Pulse Rate 94 94 96 Respiratory Rate 16 14 Blood Pressure Pulse Oximetry 96 Oxygen Delivery Room Air Oxygen Flow Rate Fraction of Inspired Oxygen 09/06/23 17:22 09/06/23 16:00 09/06/23 18:00 Temperature Pulse Rate 105 H 98 100 Respiratory Rate 16 19 Blood Pressure 131/93 H Pulse Oximetry 96 Oxygen Delivery Oxygen Flow Rate Fraction of Inspired Oxygen 09/06/23 19:29 09/06/23 19:57 09/06/23 20:00 Temperature 36.9 C Pulse Rate 110 H 94 96 Respiratory Rate 15 Blood Pressure 126/98 H Pulse Oximetry 99 Oxygen Delivery Oxygen Flow Rate Fraction of Inspired Oxygen 09/06/23 20:00 09/06/23 22:00 09/06/23 23:27 Temperature Pulse Rate 92 94 94 Respiratory Rate 14 20 Blood Pressure Pulse Oximetry 95 96 Oxygen Delivery Nasal Cannula Nasal Cannula Oxygen Flow Rate 1.5 1.5 Fraction of Inspired Oxygen 09/07/23 00:00 09/07/23 00:00 09/07/23 02:00 Temperature 37.0 C Pulse Rate 91 90 91 Respiratory Rate 15 Blood Pressure 124/93 H Pulse Oximetry 94 Oxygen Delivery Oxygen Flow Rate Fraction of Inspired Oxygen 09/07/23 03:28 09/07/23 04:00 09/07/23 04:00 Temperature 36.8 C Pulse Rate 92 102 H 98 Respiratory Rate 15 17 Blood Pressure 140/100 H Pulse Oximetry 98 96 Oxygen Delivery Nasal Cannula Oxygen Flow Rate 1.5 Fraction of Inspired Oxygen 09/07/23 05:19 09/07/23 06:00 09/07/23 08:00 Temperature 36.8 C Pulse Rate 97 96 Respiratory Rate 14 20 Blood Pressure 149/94 H Pulse Oximetry 99 98 Oxygen Delivery Oxygen Flow Rate Fraction of Ins
[2023-09-07] MEDS: SODIUM CHLORIDE 0.9% IV 250 ML 10 ML (14:30)
[2023-09-07 16:39] LABS: Glucose Point of Care 97 mg/dl (65-105)
[2023-09-07 19:39] LABS: Glucose Point of Care 184 mg/dl (65-105)
[2023-09-07 23:50] LABS: Glucose Point of Care 134 mg/dl (65-105)
[2023-09-08] VITALS (18 sets, daily range): BP systolic 109–149; BP diastolic 73–97; PULSE 85–109; RESP 14–20; TEMP 36.4–37; O2SAT 96–99
[2023-09-08] MEDS: PIPERACILLN/TAZ 3.375GM/NS50ML 3.375 GM/50 ML BAG IVPB ×4 (02:32→20:11)
[2023-09-08 04:05] LABS: Glucose Point of Care 162 mg/dl (65-105)
[2023-09-08 04:37] LABS: Hematocrit 41.4 % (42.0-52.0); Hemoglobin 13.5 g/dL (14.0-18.0); Mean Corpuscular HGB Conc 32.6 g/dl (32-36); Mean Corpuscular Hemoglobin 29.8 pg (26-34); Mean Corpuscular Volume 91.4 fl (80-100); Mean Platelet Volume 10.5 fl (7.4-10.4); Platelet Count Result 182 k/mm3 (150-375); Red Blood Count 4.53 M/mm3 (4.6-6.20); Red Cell Distribution Width 13.3 % (11.5-14.5); White Blood Count 9.6 K/mm3 (4.5-10.0)
[2023-09-08 04:58] LABS: Alanine Aminotransferase 36 U/L (6-50); Albumin Level 3.7 g/dL (3.5-5.1); Alkaline Phosphatase 103 U/L (38-126); Anion Gap 13 mmol/L (8-16); Aspartate Amino Transferase 27 U/L (17-59); Bilirubin,Total 1.4 mg/dL (0.2-1.3); Blood Urea Nitrogen 17 mg/dL (9-20); Carbon Dioxide 24 mmol/L (22-30); Chloride 98 mmol/L (98-107); Estimated CRCL calculation 80 ml/min; Estimated Glomerular Filt Rate > 60; Glucose 149 mg/dL (65-110); Lipase 259 U/L (23-300); Magnesium 2.2 mg/dL (1.6-2.3); Potassium 3.6 mmol/L (3.4-5.0); Sodium 135 mmol/L (137-145)
[2023-09-08] MEDS: POTASSIUM CHLORIDE 20 MEQ PACKET (FOR LIQUID) 40 MEQ FEED TUBE (08:11)
[2023-09-08 08:13] LABS: Glucose Point of Care 148 mg/dl (65-105)
[2023-09-08] MEDS: METOPROLOL TARTRATE 12.5 MG TABLET PO ×2 (08:14→20:11)
[2023-09-08] MEDS: ASPIRIN 81 MG ENTERIC TABLET PO (08:14)
[2023-09-08] MEDS: ATORVASTATIN 40 MG TABLET 80 MG PO (08:14)
[2023-09-08] MEDS: TICAGRELOR 90 MG TABLET PO ×2 (08:14→20:11)
[2023-09-08] MEDS: PANTOPRAZOLE SODIUM IV 40 MG VIAL IV PUSH (08:14)
[2023-09-08] MEDS: ENOXAPARIN 40 MG/0.4 ML SYRINGE SUB-Q (08:14)
[2023-09-08] MEDS: INSULIN GLARGINE (*BKC) 100 UNITS/ML 10 UNITS SUB-Q (08:15)
[2023-09-08 08:46] LABS: NT Pro B Type Natriuretic Pept 4250 pg/mL (19.9-100)
--- NOTE | 2023-09-08 09:53 | WPDINTPN ---
Progress Note: A&P Assessment and Plan (1) ST elevation (STEMI) myocardial infarction: Qualifiers: Involved coronary artery: unspecified coronary artery Qualified Code(s): I21.3 - ST elevation (STEMI) myocardial infarction of unspecified site Code(s): I21.3 - ST elevation (STEMI) myocardial infarction of unspecified site Status: Acute Assessment and Plan: Patient has history of coronary disease non STEMI and PCI of RCA. Now admitted with STEMI status post angioplasty and suctioning of thrombus in RCA stent ICU telemetry monitoring Off heparin now Aspirin, beta-rajesh and Brilinta Statin echo Summary ? 1. Complete two-dimensional, color flow and Doppler transthoracicechocardiogram is performed. ? 2. Left ventricular chamber dimension is normal. ? 3. Left ventricular systolic function is normal, estimated at 55-60%. ? 4. There is no increased left ventricular wall thickness. ? 5. The left ventricular diastolic function is grade I diastolic dysfunction. ? 6. The basal inferior wall is akinetic. ? 7. The inferoseptal wall, mid inferior wall, basal inferolateral wall, andmid inferolateral wall are hypokinetic. ? 8. Left atrial chamber dimension is mildly enlarged. ? 9. There is moderate aortic valve calcification. ? 10. There is mild mitral valve regurgitation. ? 11. There is mild tricuspid valve regurgitation. ? 12. There is mild pulmonic regurgitation. (2) Acute pancreatitis: Qualifiers: Acute pancreatitis complication: no infection or necrosis Pancreatitis type: biliary Qualified Code(s): K85.10 - Biliary acute pancreatitis without necrosis or infection Code(s): K85.90 - Acute pancreatitis without necrosis or infection, unspecified Status: Acute Assessment and Plan: Patient has acute pancreatitis likely secondary to gallstones.. he is also on Ozempic which can cause pancreatitis CT scan confirms acute pancreatitis and cholelithiasis but there is no dilatation of duct Surgery and GI have evaluated the patient He will eventually need cholecystectomy Bilirubin is normal Right upper quadrant ultrasound Echogenic liver, most commonly due to steatosis but also can be seen with hepatitis and fibrosis. Gallbladder wall thickening and pericholecystic fluid, nonspecific findings in the context of pancreatitis. Negative sonographic Zarco sign, confounded by the concurrent use of pain medication. Lipase has normalized and abdominal pain is improved. Appears to have developed some ileus which is improved retry clear liquid diet today and continue pain control He is on dilaudid [employer] for pain control will decrease the dose (3) DKA (diabetic ketoacidosis): Code(s): E11.10 - Type 2 diabetes mellitus with ketoacidosis without coma Status: Acute Assessment and Plan: Patient was in DKA but his anion gap has closed and I have transitioned to subcutaneous Lantus and insulin discontinued further IV fluids he appears to be developing pulmonary edema (4) Pulmonary edema: Code(s): J81.1 - Chronic pulmonary edema Status: Acute Assessment and Plan: 09/05 Patient appears slightly more short of breath this morning although he is only on 2 L nasal cannula. Wheezing on exam Chest x-ray showed pulmonary edema Patient has been receiving IV fluids for his DKA which are now off Patient was given Lasix and his symptoms have improved P.r.n. albuterol 09/06 on 2 L nasal cannula and no respiratory distress. In the evening patient had little bit more shortness of breath and was given dose of Lasix 09/07 on nasal cannula with no respiratory distress and feels much better. continue incentive spirometry 09/08 on room air. Hold further Lasix at this time (5) Ileus: Code(s): K56.7 - Ileus, unspecified Status: Acute Assessment and Plan: 09/05 Abdominal appear distended on exam. Patient denies any nausea vomiting at this time but KUB confirms ileus Will
--- NOTE | 2023-09-08 10:14 | PM.IMPN ---
Progress Note: A&P Assessment and Plan (1) Cholelithiasis: Qualifiers: Biliary obstruction: without biliary obstruction Cholecystitis presence: without cholecystitis Cholelithiasis location: gallbladder Qualified Code(s): K80.20 - Calculus of gallbladder without cholecystitis without obstruction Code(s): K80.20 - Calculus of gallbladder without cholecystitis without obstruction Status: Acute (2) ST elevation (STEMI) myocardial infarction: Qualifiers: Involved coronary artery: unspecified coronary artery Qualified Code(s): I21.3 - ST elevation (STEMI) myocardial infarction of unspecified site Code(s): I21.3 - ST elevation (STEMI) myocardial infarction of unspecified site Status: Acute (3) Acute pancreatitis: Qualifiers: Acute pancreatitis complication: no infection or necrosis Pancreatitis type: biliary Qualified Code(s): K85.10 - Biliary acute pancreatitis without necrosis or infection Code(s): K85.90 - Acute pancreatitis without necrosis or infection, unspecified Status: Acute (4) Pulmonary edema: Code(s): J81.1 - Chronic pulmonary edema Status: Acute (5) Ileus: Code(s): K56.7 - Ileus, unspecified Status: Acute (6) Sepsis: Qualifiers: Sepsis acute organ dysfunction status: unspecified Sepsis type: sepsis due to unspecified organism Qualified Code(s): A41.9 - Sepsis, unspecified organism Code(s): A41.9 - Sepsis, unspecified organism Status: Acute Plan (1) ST elevation (STEMI) myocardial infarction: ?Qualifiers: ?Involved coronary artery:?unspecified coronary artery? Qualified Code(s):?I21.3 - ST elevation (STEMI) myocardial infarction of unspecified site ?Code(s): I21.3 - ST elevation (STEMI) myocardial infarction of unspecified site ?Status:?Acute ?Assessment and Plan: Patient has history of coronary disease non STEMI and PCI of RCA.? Now admitted with STEMI status post angioplasty and suctioning of thrombus in RCA stent ICU telemetry monitoring Off heparin now ?echo Left ventricular systolic function is normal, estimated at 55-60%. The left ventricular diastolic function is grade I diastolic dysfunction. The basal inferior wall is akinetic. The inferoseptal wall, mid inferior wall, basal inferolateral wall, andmid inferolateral wall are hypokinetic. ? Left atrial chamber dimension is mildly enlarged. Appreciate cardiology's consultation, continue Aspirin, beta-rajesh and Brilinta, Statin arrange for close outpatient follow up with Dr. Navarrete ? (2) Acute pancreatitis: ?Qualifiers: ?Acute pancreatitis complication:?no infection or necrosis??Pancreatitis type:?biliary? Qualified Code(s):?K85.10 - Biliary acute pancreatitis without necrosis or infection ?Code(s): K85.90 - Acute pancreatitis without necrosis or infection, unspecified ?Status:?Acute ?Assessment and Plan: Patient has acute pancreatitis likely secondary to gallstones..? he is also on Ozempic which can cause pancreatitis CT scan confirms acute pancreatitis and cholelithiasis but there is no dilatation of duct Bilirubin is normal Right upper quadrant ultrasound Echogenic liver, most commonly due to steatosis but also can be seen with hepatitis and fibrosis. Gallbladder wall thickening and pericholecystic fluid, nonspecific findings in the context of pancreatitis. Negative sonographic Zarco sign, confounded by the concurrent use of pain medication. Lipase has normalized and abdominal pain is improved. Appears to have developed some ileus which is improved ?retry clear liquid diet today and continue pain control Surgery and GI have evaluated the patient eventually need cholecystectomy (3) DKA (diabetic ketoacidosis): ?Code(s): E11.10 - Type 2 diabetes mellitus with ketoacidosis without coma ?Status:?Acute ?Assessment and Plan: Patient was in DKA but his anion gap has clos
[2023-09-08 12:08] LABS: Glucose Point of Care 179 mg/dl (65-105)
[2023-09-08] MEDS: ONDANSETRON INJ 4 MG/2 ML VIAL IV PUSH (13:03)
--- NOTE | 2023-09-08 13:16 | PM.PNGS ---
Progress Note: A&P Assessment and Plan (1) Ileus: Code(s): K56.7 - Ileus, unspecified Status: Acute Assessment and Plan: NG remains in place. Will give dulcolax suppository today. (2) Acute pancreatitis: Qualifiers: Acute pancreatitis complication: no infection or necrosis Pancreatitis type: biliary Qualified Code(s): K85.10 - Biliary acute pancreatitis without necrosis or infection Code(s): K85.90 - Acute pancreatitis without necrosis or infection, unspecified Status: Acute Assessment and Plan: Resolving. Start clear liquids once ileus resolved. (3) Cholelithiasis: Qualifiers: Cholelithiasis location: gallbladder Cholecystitis presence: without cholecystitis Biliary obstruction: without biliary obstruction Qualified Code(s): K80.20 - Calculus of gallbladder without cholecystitis without obstruction Code(s): K80.20 - Calculus of gallbladder without cholecystitis without obstruction Status: Acute Assessment and Plan: Eventual cholecystectomy will be recommended to prevent recurrent pancreatitis. Patient will need to be referred to a general surgeon wherever cardiology is recommending for CABG. Surgery will be too high risk to be performed at this facility. (4) ST elevation (STEMI) myocardial infarction: Qualifiers: Involved coronary artery: unspecified coronary artery Qualified Code(s): I21.3 - ST elevation (STEMI) myocardial infarction of unspecified site Code(s): I21.3 - ST elevation (STEMI) myocardial infarction of unspecified site Status: Acute Subjective Subjective Date/Time Seen: 09/08/23 13:16 Interval history: No flatus or BM. NG remains in place. Patient still feels bloated. Abdominal pain has improved. Exam GI: Inspection: distended GI Palp: Yes Soft to palpation, No Tenderness to palpation present (GI) and No Guarding due to palpation present (GI) Percussion: Yes tympanic to percussion Objective Data Vital Signs Vital Signs: Vital Signs - 24 hr 09/07/23 14:00 09/07/23 16:00 09/07/23 16:00 Temperature 36.8 C Pulse Rate 89 90 90 Respiratory Rate 16 Blood Pressure 143/87 H Pulse Oximetry 96 Oxygen Delivery 09/07/23 16:00 09/07/23 20:01 09/07/23 20:00 Temperature Pulse Rate 90 89 91 Respiratory Rate 16 15 Blood Pressure 130/92 H Pulse Oximetry 96 98 Oxygen Delivery Room Air 09/07/23 23:00 09/07/23 20:00 09/07/23 20:00 Temperature Pulse Rate 92 Respiratory Rate 14 Blood Pressure Pulse Oximetry 95 Oxygen Delivery Room Air 09/07/23 22:00 09/07/23 23:40 09/08/23 00:00 Temperature 36.9 C Pulse Rate 85 88 Respiratory Rate 16 Blood Pressure 148/95 H Pulse Oximetry 96 Oxygen Delivery Room Air 09/08/23 00:00 09/08/23 02:00 09/08/23 04:00 Temperature 37.0 C Pulse Rate 94 91 92 Respiratory Rate 16 Blood Pressure 149/97 H Pulse Oximetry 98 Oxygen Delivery 09/08/23 04:00 09/08/23 04:00 09/08/23 05:47 Temperature Pulse Rate 109 H 85 Respiratory Rate Blood Pressure Pulse Oximetry Oxygen Delivery Room Air 09/08/23 08:14 Temperature Pulse Rate 94 Respiratory Rate Blood Pressure Pulse Oximetry Oxygen Delivery Intake/Output Intake/Output: Intake & Output 09/05/23 09/06/23 09/07/23 09/08/23 23:59 23:59 23:59 23:59 Intake Total 1400 038 986 3501 Output Total 2720 2900 2430 3700 Balance -1322 -1200 -5203 -2406 Meds/Results Medications: Active Medications Generic Name Dose Route Start Last Admin Trade Name Freq PRN Reason Stop Dose Admin Albuterol 2.5 mg 09/05/23 09:52 09/06/23 17:12 Albuterol Sulfate Neb 2.5 Mg/3 Ml Inh INHALATION 2.5 mg Q4HRT PRN Administration Wheezing Aspirin 81 mg 09/05/23 08:00 09/08/23 08:14 Aspirin 81 Mg Enteric Tablet PO 81 mg DAILY@0800 ADAMARIS Administration Atorvastatin Calcium 80 mg 09/06/23 09:00
--- NOTE | 2023-09-08 14:47 | PC.NURSE ---
This patient, Johanna Barbosa, was transferred to [[id number] ] on 09/08/23 at 1310. Personal belongings sent with patient. Report given to [Natalia BARKER ]. Appropriate documentation sent with patient.
--- NOTE | 2023-09-08 15:06 | PM.PNCARD ---
Progress Note: A&P Assessment and Plan (1) ST elevation (STEMI) myocardial infarction: Qualifiers: Involved coronary artery: unspecified coronary artery Qualified Code(s): I21.3 - ST elevation (STEMI) myocardial infarction of unspecified site Code(s): I21.3 - ST elevation (STEMI) myocardial infarction of unspecified site Status: Acute Assessment and Plan: 58-year-old man with very complex situation. He has multivessel coronary disease treated emergently with PTCA of thrombosed RCA stenosis. This is a heavily calcified lesion which was very difficult to intervene upon in the past. He now also has high-grade proximal LAD and proximal circumflex disease as noted in the mobile lab technician report. Unfortunately concurrent to all of this he has significant pancreatitis, presumably gallstone pancreatitis and will likely require surgical treatment. He has been stable from a cardiac perspective s/p PTCA. Continue DAPT with ASA, Brilinta Continue statin Continue aggressive risk factor modification for CAD Cardiac rehab referral sent Ultimately will require cholecystectomy followed by PCI vs surgical revascularization at a tertiary care center. Will arrange for close outpatient follow up with Dr. Navarrete (2) Acute pancreatitis: Qualifiers: Acute pancreatitis complication: no infection or necrosis Pancreatitis type: biliary Qualified Code(s): K85.10 - Biliary acute pancreatitis without necrosis or infection Code(s): K85.90 - Acute pancreatitis without necrosis or infection, unspecified Status: Acute Assessment and Plan: General Surgery on board Subjective Date/time seen: 09/08/23 15:06 Interval history: Cardiology follow up for CAD, STEMI Reports improvement in abdominal pain. 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 NG tube remains in place. No chest pain. Exam Const: General: no acute distress HENMT: Other: NG tube in place Resp: Effort & Inspection: normal respiratory effort Cardio: Rate: regular rate Rhythm: regular rhythm Skin: General skin exam: normal color Neuro: Speech: normal speech Psych: Mental Status: mental status grossly normal Affect: normal affect Objective Data Vital Signs Vital Signs: Vital Signs - 24 hr 09/07/23 16:00 09/07/23 16:00 09/07/23 16:00 Temperature 36.8 C Pulse Rate 90 90 90 Respiratory Rate 16 16 Blood Pressure 143/87 H Pulse Oximetry 96 96 Oxygen Delivery Room Air 09/07/23 20:01 09/07/23 20:00 09/07/23 23:00 Temperature Pulse Rate 89 91 Respiratory Rate 15 14 Blood Pressure 130/92 H Pulse Oximetry 98 95 Oxygen Delivery 09/07/23 20:00 09/07/23 20:00 09/07/23 22:00 Temperature Pulse Rate 92 85 Respiratory Rate Blood Pressure Pulse Oximetry Oxygen Delivery Room Air 09/07/23 23:40 09/08/23 00:00 09/08/23 00:00 Temperature 36.9 C Pulse Rate 88 94 Respiratory Rate 16 Blood Pressure 148/95 H Pulse Oximetry 96 Oxygen Delivery Room Air 09/08/23 02:00 09/08/23 04:00 09/08/23 04:00 Temperature 37.0 C Pulse Rate 91 92 Respiratory Rate 16 Blood Pressure 149/97 H Pulse Oximetry 98 Oxygen Delivery Room Air 09/08/23 04:00 09/08/23 05:47 09/08/23 08:14 Temperature Pulse Rate 109 H 85 94 Respiratory Rate Blood Pressure Pulse Oximetry Oxygen Delivery 09/08/23 08:00 09/08/23 10:00 09/08/23 12:00 Temperature Pulse Rate 89 88 88 Respiratory Rate Blood Pressure Pulse Oximetry Oxygen Delivery 09/08/23 08:00 09/08/23 12:00 09/08/23 12:00 Temperature 36.7 C Pulse Rate 88 Respiratory Rate 15 Blood Pressure 133/83 Pulse Oximetry 99 Oxygen Delivery Room Air Room Air Intake/Output Intake/Output: Intake & Output 09/05/23 09/06/23 09/07/23 09/08/23 23:59 23:59 23:59 23:59 Intake Total 1400 887 909 8497 Output Total 8480 2900 2430 3700 [facility] -1320 -2140 -2049 -2400 Meds/Results Medicat
[2023-09-08] MEDS: BISACODYL 10 MG SUPPOSITORY RECTAL (15:39)
[2023-09-08] MEDS: HYDROmorphon 0.2MG/ML PCA(*CRX 6 MG/30 ML PCA.VIAL 1 MG IV CONT (17:18)
[2023-09-08 17:48] LABS: Glucose Point of Care 151 mg/dl (65-105)
[2023-09-08] MEDS: traZODone HCL 50 MG TABLET 200 MG PO (19:38)
[2023-09-08 21:08] LABS: Glucose Point of Care 158 mg/dl (65-105)
[2023-09-09] VITALS (20 sets, daily range): BP systolic 111–131; BP diastolic 66–85; PULSE 82–106; RESP 16–20; TEMP 36.1–37.2; O2SAT 94–98; BMI 26.5
[2023-09-09 00:25] LABS: Glucose Point of Care 146 mg/dl (65-105)
[2023-09-09 04:49] LABS: Glucose Point of Care 152 mg/dl (65-105)
[2023-09-09 05:28] LABS: Hematocrit 34.2 % (42.0-52.0); Hemoglobin 11.4 g/dL (14.0-18.0); Mean Corpuscular HGB Conc 33.3 g/dl (32-36); Mean Corpuscular Hemoglobin 29.8 pg (26-34); Mean Corpuscular Volume 89.5 fl (80-100); Mean Platelet Volume 11.3 fl (7.4-10.4); Platelet Count Result 163 k/mm3 (150-375); Red Blood Count 3.82 M/mm3 (4.6-6.20); Red Cell Distribution Width 13.4 % (11.5-14.5); White Blood Count 5.9 K/mm3 (4.5-10.0)
[2023-09-09 05:39] LABS: Alanine Aminotransferase 23 U/L (6-50); Alkaline Phosphatase 77 U/L (38-126); Anion Gap 10 mmol/L (8-16); Aspartate Amino Transferase 26 U/L (17-59); Bilirubin,Total 0.9 mg/dL (0.2-1.3); Blood Urea Nitrogen 17 mg/dL (9-20); Calcium 8.4 mg/dL (8.4-10.2); Carbon Dioxide 23 mmol/L (22-30); Chloride 100 mmol/L (98-107); Estimated CRCL calculation 72 ml/min; Estimated Glomerular Filt Rate > 60; Glucose 168 mg/dL (65-110); Lipase 118 U/L (23-300); Potassium 3.3 mmol/L (3.4-5.0); Sodium 133 mmol/L (137-145)
[2023-09-09] MEDS: ATORVASTATIN 40 MG TABLET 80 MG PO (08:24)
[2023-09-09] MEDS: ASPIRIN 81 MG ENTERIC TABLET PO (08:24)
[2023-09-09] MEDS: TICAGRELOR 90 MG TABLET PO ×2 (08:24→20:27)
[2023-09-09] MEDS: METOPROLOL TARTRATE 12.5 MG TABLET PO ×2 (08:25→20:27)
[2023-09-09] MEDS: ENOXAPARIN 40 MG/0.4 ML SYRINGE SUB-Q (08:25)
[2023-09-09] MEDS: INSULIN GLARGINE (*BKC) 100 UNITS/ML 10 UNITS SUB-Q (08:25)
[2023-09-09] MEDS: PANTOPRAZOLE SODIUM IV 40 MG VIAL IV PUSH (08:25)
[2023-09-09 08:31] LABS: Glucose Point of Care 179 mg/dl (65-105)
--- NOTE | 2023-09-09 09:05 | P.PNIM_ITS ---
Progress Note: A&P Assessment and Plan (1) Cholelithiasis: Qualifiers: Biliary obstruction: without biliary obstruction Cholecystitis presence: without cholecystitis Cholelithiasis location: gallbladder Qualified Code(s): K80.20 - Calculus of gallbladder without cholecystitis without obstruction Code(s): K80.20 - Calculus of gallbladder without cholecystitis without obstruction Status: Acute (2) ST elevation (STEMI) myocardial infarction: Qualifiers: Involved coronary artery: unspecified coronary artery Qualified Code(s): I21.3 - ST elevation (STEMI) myocardial infarction of unspecified site Code(s): I21.3 - ST elevation (STEMI) myocardial infarction of unspecified site Status: Acute (3) Acute pancreatitis: Qualifiers: Acute pancreatitis complication: no infection or necrosis Pancreatitis type: biliary Qualified Code(s): K85.10 - Biliary acute pancreatitis without necrosis or infection Code(s): K85.90 - Acute pancreatitis without necrosis or infection, unspecified Status: Acute (4) Pulmonary edema: Code(s): J81.1 - Chronic pulmonary edema Status: Acute (5) Ileus: Code(s): K56.7 - Ileus, unspecified Status: Acute (6) Sepsis: Qualifiers: Sepsis acute organ dysfunction status: unspecified Sepsis type: sepsis due to unspecified organism Qualified Code(s): A41.9 - Sepsis, unspecified organism Code(s): A41.9 - Sepsis, unspecified organism Status: Acute Plan (1) ST elevation (STEMI) myocardial infarction: ?Qualifiers: ?Involved coronary artery:?unspecified coronary artery? Qualified Code(s):?I21.3 - ST elevation (STEMI) myocardial infarction of unspecified site ?Code(s): I21.3 - ST elevation (STEMI) myocardial infarction of unspecified site ?Status:?Acute ?Assessment and Plan: Patient has history of coronary disease non STEMI and PCI of RCA.? Now admitted with STEMI status post angioplasty and suctioning of thrombus in RCA stent ICU telemetry monitoring Off heparin now ?echo Left ventricular systolic function is normal, estimated at 55-60%. The left ventricular diastolic function is grade I diastolic dysfunction. The basal inferior wall is akinetic. The inferoseptal wall, mid inferior wall, basal inferolateral wall, andmid inferolateral wall are hypokinetic. ? Left atrial chamber dimension is mildly enlarged. Appreciate cardiology's consultation, continue Aspirin, beta-rajesh and Brilinta, Statin arrange for close outpatient follow up with Dr. Nvaarrete ? (2) Acute pancreatitis: ?Qualifiers: ?Acute pancreatitis complication:?no infection or necrosis??Pancreatitis type:?biliary? Qualified Code(s):?K85.10 - Biliary acute pancreatitis without necrosis or infection ?Code(s): K85.90 - Acute pancreatitis without necrosis or infection, unspecified ?Status:?Acute ?Assessment and Plan: Patient has acute pancreatitis likely secondary to gallstones..? he is also on Ozempic which can cause pancreatitis CT scan confirms acute pancreatitis and cholelithiasis but there is no dilatation of duct Bilirubin is normal Right upper quadrant ultrasound Echogenic liver, most commonly due to steatosis but also can be seen with hepatitis and fibrosis. Gallbladder wall thickening and pericholecystic fluid, nonspecific findings in the context of pancreatitis. Negative sonographic Zarco sign, confounded by the concurrent use of pain medication. Lipase has normalized and abdominal pain is improved. Appears to have developed some ileus whi
--- NOTE | 2023-09-09 11:27 | PM.PNCARD ---
Progress Note: A&P Assessment and Plan (1) ST elevation (STEMI) myocardial infarction: Qualifiers: Involved coronary artery: unspecified coronary artery Qualified Code(s): I21.3 - ST elevation (STEMI) myocardial infarction of unspecified site Code(s): I21.3 - ST elevation (STEMI) myocardial infarction of unspecified site Status: Acute Assessment and Plan: 58-year-old man with very complex situation. He has multivessel coronary disease treated emergently with PTCA of thrombosed RCA stenosis. This is a heavily calcified lesion which was very difficult to intervene upon in the past. 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 Unfortunately concurrent to all of this he has significant pancreatitis, presumably gallstone pancreatitis and will likely require surgical treatment. He has been stable from a cardiac perspective s/p PTCA. Continue DAPT with ASA, Brilinta Continue statin Continue aggressive risk factor modification for CAD Cardiac rehab referral sent Ultimately will require cholecystectomy followed by PCI vs surgical revascularization at a tertiary care center. Will arrange for close outpatient follow up with Dr. Navarrete (2) Acute pancreatitis: Qualifiers: Acute pancreatitis complication: no infection or necrosis Pancreatitis type: biliary Qualified Code(s): K85.10 - Biliary acute pancreatitis without necrosis or infection Code(s): K85.90 - Acute pancreatitis without necrosis or infection, unspecified Status: Acute Assessment and Plan: General Surgery following Subjective Date/time seen: 09/09/23 11:27 Interval history: Cardiology follow up for CAD, STEMI Reports improvement in abdominal pain. 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 NG tube remains in place. No chest pain. Date of service 09/09/23: Tolerating clear liquids. NG remains in place. Still on Dilaudid LAB SCIENTIST. No chest pain. Review of Systems Review of Systems: General: Negative for fever, chills, fatigue Psychological: Negative for anxiety, depression Ophthalmic: negative for loss of vision ENT: Negative for epistaxis, headaches Allergy and immunology: Negative for hives, nasal congestion Hematologic and lymphatic: Negative for overt bleeding problems Endocrine: Negative for hot flashes, palpitations Respiratory: Negative for cough, hemoptysis Cardiovascular: Positive for chest pain Gastrointestinal: positive for abdominal pain, nausea, vomiting Musculoskeletal: Negative for myalgia, joint pains Neurological: Negative for weakness Dermatological: Negative for rash, skin discoloration Exam Const: General: comfortable and no acute distress HENMT: Mouth: Yes moist mucous membranes Other: NG in place Eyes: Sclera: sclerae normal Neck: Neck: supple Resp: Effort & Inspection: normal respiratory effort Auscultation: clear to auscultation bilaterally Cardio: Rate: regular rate Rhythm: regular rhythm Other: No murmur no gallop GI: GI Palp: Yes Firmness to palpation present (GI) Other: Bowel sounds hypoactive Skin: General skin exam: normal color Neuro: Other: Alert and oriented x3 Extrem: Right lower extremity: no edema Left lower extremity: no edema Other: Well perfused Objective Data Vital Signs Vital Signs: Vital Signs - 24 hr 09/08/23 12:00 09/08/23 12:00 09/08/23 12:00 Temperature 36.7 C Pulse Rate 88 88 Respiratory Rate 15 Blood Pressure 133/83 Pulse Oximetry 99 Oxygen Delivery Room Air Fraction of Inspired Oxygen 09/08/23 12:00 09/08/23 13:00 09/08/23 14:00 Temperature Pulse Rate 99 Respiratory Rate 16 15 Blood Pressure Pulse Oximetry 98 99 Oxygen Delivery Fraction of Inspired Oxygen 09/08/23 17:03 09/08/23 16:00 09/08/23 17:18 Temperature 36.6 C Pulse Rate 102 H Respiratory Rate 20 16 17 Blood Pressure
--- NOTE | 2023-09-09 11:45 | PCNFU ---
Nutrition Follow-Up Complete: Pt current nutrition is clear liquid diet. Patient NPO/CL x 5 days, today. Last recorded weight is 76.8 kg. Weight is down 9 lbs/5% since x 6 days. Bowel Motility: abdomen tender/distended, bowel sounds present. NG tube in place. No BM documented in EHR although MD reported patient does have BM today in progress note. No nausea/vomiting per progress note. Labs Reviewed: K+ 3.3, glucose 168 Meds Noted: Lipitor, Dilaudid, Novolog, Lantus, Zofran, Protonix; Dulcolax given yesterday Skin: Right groin puncture. Additional Notes: Dulcolax given yesterday. UBW: 180 lbs (per patient). Patient needs CABG/cholecystectomy. 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 Inadequate oral intake related to acute pancreatitis, ileus as evidenced by NPO status. (Continue, diet advanced to clear liquids) Nutrition recommendation: 1. Advance diet as medically able. If unable to advance diet, please consider alternate method of nutrition. RD available prn for consult for recommendations. 2. Ensure Plus BID. Dr. Nuñez ok with ordering an oral nutrition supplement (Ensure Plus) as a source of calories/protein with a clear liquid diet order. Ensure Clear not available at this facility. Will monitor need for Glucerna. 3. Replace K+. 4. Monitor electrolytes (mg, K+, Phos); replace prn. Goal: Diet advancement as medically appropriate Monitoring diet orders, plan of care, weights, labs Follow up in 3 days
[2023-09-09 12:06] LABS: Glucose Point of Care 198 mg/dl (65-105)
--- NOTE | 2023-09-09 13:55 | PM.PNGS ---
Progress Note: A&P Assessment and Plan (1) Ileus: Code(s): K56.7 - Ileus, unspecified Status: Acute Assessment and Plan: Clamp NG, remove later today if tolerating clears. Advance slowly. (2) Acute pancreatitis: Qualifiers: Acute pancreatitis complication: no infection or necrosis Pancreatitis type: biliary Qualified Code(s): K85.10 - Biliary acute pancreatitis without necrosis or infection Code(s): K85.90 - Acute pancreatitis without necrosis or infection, unspecified Status: Acute Assessment and Plan: Resolving. Monitor for recurrent symptoms as diet is advanced. (3) Cholelithiasis: Qualifiers: Cholelithiasis location: gallbladder Cholecystitis presence: without cholecystitis Biliary obstruction: without biliary obstruction Qualified Code(s): K80.20 - Calculus of gallbladder without cholecystitis without obstruction Code(s): K80.20 - Calculus of gallbladder without cholecystitis without obstruction Status: Acute Assessment and Plan: Eventual cholecystectomy will be recommended to prevent recurrent pancreatitis. Patient will need to be referred to a general surgeon wherever cardiology is recommending for CABG. Surgery will be too high risk to be performed at this facility. (4) ST elevation (STEMI) myocardial infarction: Qualifiers: Involved coronary artery: unspecified coronary artery Qualified Code(s): I21.3 - ST elevation (STEMI) myocardial infarction of unspecified site Code(s): I21.3 - ST elevation (STEMI) myocardial infarction of unspecified site Status: Acute Subjective Subjective Date/Time Seen: 09/09/23 13:55 Interval history: Tolerating clear liquids with NG clamped. Passing flatus. Less bloating. No abdominal pain. Exam GI: Inspection: other (distention improved) GI Palp: Yes Soft to palpation, No Tenderness to palpation present (GI) and No Guarding due to palpation present (GI) Percussion: Yes normal to percussion Auscultation: normal bowel sounds Objective Data Vital Signs Vital Signs: Vital Signs - 24 hr 09/08/23 14:00 09/08/23 17:03 09/08/23 16:00 Temperature 36.6 C Pulse Rate 99 102 H Respiratory Rate 20 16 Blood Pressure 134/84 Pulse Oximetry 97 98 Oxygen Delivery Fraction of Inspired Oxygen 09/08/23 17:18 09/08/23 17:18 09/08/23 16:00 Temperature Pulse Rate Respiratory Rate 17 18 Blood Pressure Pulse Oximetry 96 99 Oxygen Delivery Room Air Fraction of Inspired Oxygen 09/08/23 16:00 09/08/23 18:00 09/08/23 20:11 Temperature Pulse Rate 96 99 105 H Respiratory Rate Blood Pressure Pulse Oximetry Oxygen Delivery Fraction of Inspired Oxygen 09/08/23 20:00 09/08/23 20:00 09/08/23 20:00 Temperature 36.9 C Pulse Rate 94 100 100 Respiratory Rate 18 18 Blood Pressure 126/73 Pulse Oximetry 97 97 Oxygen Delivery Room Air Fraction of Inspired Oxygen 21 09/08/23 21:44 09/08/23 23:41 09/09/23 00:00 Temperature 36.4 C Pulse Rate 105 H 100 98 Respiratory Rate 18 Blood Pressure 109/74 Pulse Oximetry 98 Oxygen Delivery Fraction of Inspired Oxygen 09/09/23 00:00 09/09/23 02:00 09/09/23 03:42 Temperature 36.4 C L Pulse Rate 98 96 93 Respiratory Rate 18 20 Blood Pressure 113/73 Pulse Oximetry 98 94 Oxygen Delivery Room Air Fraction of Inspired Oxygen 21 09/09/23 04:00 09/09/23 04:00 09/09/23 06:00 Temperature Pulse Rate 94 94 96 Respiratory Rate 20 Blood Pressure Pulse Oximetry 94 Oxygen Delivery Room Air Fraction of Inspired Oxygen 21 09/09/23 07:28 09/09/23 08:25 09/09/23 08:00 Temperature 36.1 C L Pulse Rate 98 99 97 Respiratory Rate Blood Pressure 116/70 Pulse Oximetry 97 Oxygen Delivery Fraction of Inspired Oxygen 09/09/23 10:00 09/09/23 08:00 09/09/23 11:25 Temperature 37.2 C Pulse Rate 89 82 Respiratory Rate
[2023-09-09 17:23] LABS: Glucose Point of Care 260 mg/dl (65-105)
[2023-09-09] MEDS: INSULIN ASPART (*BKC) 100 UNITS/ML SUB-Q (17:41)
[2023-09-09] MEDS: METOCLOPRAMIDE HCL INJ 10 MG/2 ML VIAL IV PUSH (17:42)
[2023-09-09] MEDS: ONDANSETRON INJ 4 MG/2 ML VIAL IV PUSH (20:27)
[2023-09-09] MEDS: traZODone HCL 50 MG TABLET 200 MG PO (20:32)
[2023-09-09] MEDS: HYDROmorphon 0.2MG/ML PCA(*CRX 6 MG/30 ML PCA.VIAL 1 MG IV CONT (20:39)
[2023-09-09 21:02] LABS: Glucose Point of Care 152 mg/dl (65-105)
[2023-09-10] VITALS (21 sets, daily range): BP systolic 110–125; BP diastolic 63–84; PULSE 84–98; RESP 16–22; TEMP 36.1–37.1; O2SAT 94–96
[2023-09-10 00:41] LABS: Glucose Point of Care 166 mg/dl (65-105)
[2023-09-10] MEDS: METOCLOPRAMIDE HCL INJ 10 MG/2 ML VIAL IV PUSH ×4 (00:46→17:00)
[2023-09-10 05:25] LABS: Glucose Point of Care 203 mg/dl (65-105)
[2023-09-10] MEDS: INSULIN ASPART (*BKC) 100 UNITS/ML SUB-Q ×2 (06:04→16:56)
[2023-09-10 08:17] LABS: Glucose Point of Care 195 mg/dl (65-105)
[2023-09-10] MEDS: ENOXAPARIN 40 MG/0.4 ML SYRINGE SUB-Q (09:05)
[2023-09-10] MEDS: PANTOPRAZOLE SODIUM IV 40 MG VIAL IV PUSH (09:05)
[2023-09-10] MEDS: TICAGRELOR 90 MG TABLET PO ×2 (09:05→20:40)
[2023-09-10] MEDS: ATORVASTATIN 40 MG TABLET 80 MG PO (09:05)
[2023-09-10] MEDS: METOPROLOL TARTRATE 12.5 MG TABLET PO ×2 (09:05→20:40)
[2023-09-10] MEDS: ASPIRIN 81 MG ENTERIC TABLET PO (09:05)
[2023-09-10] MEDS: INSULIN GLARGINE (*BKC) 100 UNITS/ML 10 UNITS SUB-Q (09:06)
[2023-09-10] MEDS: ALBUTEROL SULFATE NEB 2.5 MG/3 ML INH INHALATION (09:15)
--- NOTE | 2023-09-10 09:16 | PM.IMPN ---
Progress Note: A&P Assessment and Plan (1) Cholelithiasis: Qualifiers: Biliary obstruction: without biliary obstruction Cholecystitis presence: without cholecystitis Cholelithiasis location: gallbladder Qualified Code(s): K80.20 - Calculus of gallbladder without cholecystitis without obstruction Code(s): K80.20 - Calculus of gallbladder without cholecystitis without obstruction Status: Acute (2) ST elevation (STEMI) myocardial infarction: Qualifiers: Involved coronary artery: unspecified coronary artery Qualified Code(s): I21.3 - ST elevation (STEMI) myocardial infarction of unspecified site Code(s): I21.3 - ST elevation (STEMI) myocardial infarction of unspecified site Status: Acute (3) Acute pancreatitis: Qualifiers: Acute pancreatitis complication: no infection or necrosis Pancreatitis type: biliary Qualified Code(s): K85.10 - Biliary acute pancreatitis without necrosis or infection Code(s): K85.90 - Acute pancreatitis without necrosis or infection, unspecified Status: Acute (4) Pulmonary edema: Code(s): J81.1 - Chronic pulmonary edema Status: Acute (5) Ileus: Code(s): K56.7 - Ileus, unspecified Status: Acute (6) Sepsis: Qualifiers: Sepsis acute organ dysfunction status: unspecified Sepsis type: sepsis due to unspecified organism Qualified Code(s): A41.9 - Sepsis, unspecified organism Code(s): A41.9 - Sepsis, unspecified organism Status: Acute Plan (1) ST elevation (STEMI) myocardial infarction: ?Qualifiers: ?Involved coronary artery:?unspecified coronary artery? Qualified Code(s):?I21.3 - ST elevation (STEMI) myocardial infarction of unspecified site ?Code(s): I21.3 - ST elevation (STEMI) myocardial infarction of unspecified site ?Status:?Acute ?Assessment and Plan: Patient has history of coronary disease non STEMI and PCI of RCA.? Now admitted with STEMI status post angioplasty and suctioning of thrombus in RCA stent was in ICU Off heparin now ?echo Left ventricular systolic function is normal, estimated at 55-60%. The left ventricular diastolic function is grade I diastolic dysfunction. The basal inferior wall is akinetic. The inferoseptal wall, mid inferior wall, basal inferolateral wall, and mid inferolateral wall are hypokinetic. ? Left atrial chamber dimension is mildly enlarged. Appreciate cardiology's consultation, continue Aspirin, beta-rajesh and Brilinta, Statin arrange for close outpatient follow up with Dr. Navarrete on telemetry monitoring ? (2) Acute pancreatitis: ?Qualifiers: ?Acute pancreatitis complication:?no infection or necrosis??Pancreatitis type:?biliary? Qualified Code(s):?K85.10 - Biliary acute pancreatitis without necrosis or infection ?Code(s): K85.90 - Acute pancreatitis without necrosis or infection, unspecified ?Status:?Acute ?Assessment and Plan: Patient has acute pancreatitis likely secondary to gallstones..? he is also on Ozempic which can cause pancreatitis CT scan confirms acute pancreatitis and cholelithiasis but there is no dilatation of duct Bilirubin is normal Right upper quadrant ultrasound Echogenic liver, most commonly due to steatosis but also can be seen with hepatitis and fibrosis. Gallbladder wall thickening and pericholecystic fluid, nonspecific findings in the context of pancreatitis. Negative sonographic Zarco sign, confounded by the concurrent use of pain medication. Lipase has normalized and abdominal pain is improved. NG tube is out and pt is on clear liquid diet today and continue pain control Surgery and GI have evaluated the patient eventually need cholecystectomy (3) DKA (diabetic ketoacidosis): ?Code(s): E11.10 - Type 2 diabetes mellitus with ketoacidosis without coma ?Status:?Acute ?Assessment and Plan: Patient was in DKA but his anion gap has closed transitioned to
[2023-09-10 09:48] LABS: Basophils Percent Auto 0.5 % (0.2-1.2); Eosinophils Absolute Auto 0.3 K/mm3 (0-0.3); Eosinophils Percent Auto 5.9 % (0-4.4); Hematocrit 31.8 % (42.0-52.0); Hemoglobin 10.4 g/dL (14.0-18.0); Immature Granulocyte Absolute 0.02 K/mm3 (0.00-0.031); Immature Granulocyte Percent A 0.4 % (0-0.5); Lymphocytes Absolute Auto 0.98 K/mm3 (0.9-3.2); Lymphocytes Percent Auto 17.4 % (18.3-44.2); Mean Corpuscular HGB Conc 32.7 g/dl (32-36); Mean Corpuscular Hemoglobin 29.4 pg (26-34); Mean Corpuscular Volume 89.8 fl (80-100); Mean Platelet Volume 11.1 fl (7.4-10.4); Monocytes Absolute Auto 0.7 K/mm3 (0.1-0.6); Monocytes Percent Auto 13.1 % (2.6-8.5); Neutrophils Absolute Auto 3.5 K/mm3 (1.3-6.7); Neutrophils Percent Auto 62.7 % (45.5-73.1); Platelet Count Result 137 k/mm3 (150-375); Red Blood Count 3.54 M/mm3 (4.6-6.20); Red Cell Distribution Width 13.9 % (11.5-14.5); White Blood Count 5.6 K/mm3 (4.5-10.0)
[2023-09-10 09:58] LABS: Magnesium 1.9 mg/dL (1.6-2.3); Phosphorus 3.5 mg/dL (2.5-4.5)
[2023-09-10 09:59] LABS: Anion Gap 9 mmol/L (8-16); Blood Urea Nitrogen 14 mg/dL (9-20); Calcium 8.2 mg/dL (8.4-10.2); Carbon Dioxide 26 mmol/L (22-30); Chloride 97 mmol/L (98-107); Estimated CRCL calculation 65 ml/min; Estimated Glomerular Filt Rate > 60; Glucose 218 mg/dL (65-110); Potassium 2.9 mmol/L (3.4-5.0); Sodium 132 mmol/L (137-145)
--- NOTE | 2023-09-10 10:08 | PM.PNCARD ---
Progress Note: A&P Assessment and Plan (1) ST elevation (STEMI) myocardial infarction: Qualifiers: Involved coronary artery: unspecified coronary artery Qualified Code(s): I21.3 - ST elevation (STEMI) myocardial infarction of unspecified site Code(s): I21.3 - ST elevation (STEMI) myocardial infarction of unspecified site Status: Acute Plan 58-year-old man with relatively complicated situation. He has multivessel coronary disease with emergency PTCA of right coronary artery occlusion last weekend. He also unfortunately has gallstones, cholecystitis with gallstone pancreatitis and is recovering where following NG decompression and bowel rest. He is going to require cholecystectomy followed by likelihood of surgical myocardial revascularization. It is very important that if plans are to discharge the patient from [place] that these plans are in place at the time of discharge so that his care is occurring in a reliable/smooth fashion. The patient has some interest in proceeding with this care at [facility] where our practice also can attend to his cardiovascular needs. The hospitalist team and/or surgeon should ideally correspond with surgeon at [facility] to arrange for consultation and cholecystectomy if this is to be done at that hospital. We will continue to follow him with you at [place] while he is here I would anticipate if he continues to improve his discharge will be in the next couple of days but it is very important for his ongoing care to have his coronary whether his surgery is to occur at [facility] [place] or elsewhere Da Stringer MD [facility] Subjective Date/time seen: Date of service: 09/10/23 10:08 Interval history: Cardiology follow up for CAD, STEMI Reports improvement in abdominal pain. 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 NG tube remains in place. No chest pain. Date of service 09/10/2023: Patient is relatively comfortable does have some mild mid abdominal discomfort which is gradually improving. Is now progressing NG tube has been removed he is tolerating clear liquid diet and p.o. medications. Exam Narrative: PHYSICAL EXAMINATION: GENERAL: Alert, oriented, distress due to abdominal pain MENTAL STATUS: anxious EYES: Extraocular movements intact, no pallor EARS: External ears appear normal, hearing grossly normal NOSE: Normal and patent, no discharge MOUTH: Mucous membranes moist, tongue normal NECK: Supple, no JVD CHEST: Good respiratory effort, clear to auscultation HEART: Normal rate, regular rhythm ABDOMEN: Soft, tender , no rigidity NEUROLOGICAL: Alert, oriented, normal speech, no gross motor deficits MUSCULOSKELETAL: No major deformity, no amputation EXTREMITIES: No pedal edema, no clubbing, no cyanosis SKIN: no rash on the exposed area, no cyanosis PSYCHIATRIC: Normal mood, appropriate affect Const: General: comfortable and no acute distress HENMT: Mouth: Yes moist mucous membranes Other: NG in place Eyes: Sclera: sclerae normal Neck: Neck: supple Resp: Effort & Inspection: normal respiratory effort Auscultation: clear to auscultation bilaterally Other: Scattered rhonchi noted Cardio: Rate: regular rate Rhythm: regular rhythm Other: No murmur no gallop GI: Other: Bowel sounds hypoactive Skin: General skin exam: normal color Neuro: Speech: normal speech Other: Alert and oriented x3 Extrem: Right lower extremity: no edema Left lower extremity: no edema Other: Well perfused Psych: Mental Status: mental status grossly normal Affect: normal affect Objective Data Vital Signs Vital Signs: Vital Signs - 24 hr 09/09/23 11:25 09/09/23 12:00 09/09/23 12:00 Temperature 37.2 C Pulse Rate 82 93 Respiratory Rate 18 Blood Pressure 111/66 Pulse Oximetry 98 Oxygen Delivery Room Air 09/09/23 14:00 09/09/23 16:35 09/09/23 16:00 Temperature 36.1 C L Pulse Rat
[2023-09-10] MEDS: POTASSIUM CHLORIDE 20 MEQ ER TABLET 40 MEQ PO ×2 (12:39→16:56)
[2023-09-10 13:13] LABS: Glucose Point of Care 342 mg/dl (65-105)
[2023-09-10 16:38] LABS: Glucose Point of Care 267 mg/dl (65-105)
--- NOTE | 2023-09-10 18:08 | PM.PNGS ---
Progress Note: A&P Assessment and Plan (1) Biliary acute pancreatitis without necrosis or infection: Code(s): K85.10 - Biliary acute pancreatitis without necrosis or infection Status: Acute Assessment and Plan: Has essentially resolved and patient off CASE PLANNER and having no abdominal pain. Typically, following an episode of biliary pancreatitis, cholecystectomy is in order. In this case, with the patient having a recent ST-elevation HI, no such cholecystectomy is going to occur. Once patient's ileus has resolved and he is tolerating a low-fat diet, patient can be discharged or transferred to facility where they can address his coronary artery disease. (2) ST elevation (STEMI) myocardial infarction: Qualifiers: Involved coronary artery: unspecified coronary artery Qualified Code(s): I21.3 - ST elevation (STEMI) myocardial infarction of unspecified site Code(s): I21.3 - ST elevation (STEMI) myocardial infarction of unspecified site Status: Acute Assessment and Plan: Plan per Cardiology. Patient currently on Brilinta and doubt this can be stopped for surgery. (3) Ileus: Code(s): K56.7 - Ileus, unspecified Status: Acute Assessment and Plan: Adynamic ileus status post severe pancreatitis as well as considerable narcotic usage. Patient is still distended but had a bowel movement today and has good bowel sounds. Will advance to full liquid diet and advised him to take this slowly backing off if he experiences nausea. Also advised that it may be necessary to replace his NG tube. He states that he would do anything to avoid having that nasogastric tube replaced. Advance diet slowly. Subjective Subjective Date/Time Seen: 09/10/23 18:08 Patient reports: feels better, pain is less (Off the CASE PLANNER pump), bowel movement (Had a bowel movement this afternoon) and afebrile Review of Systems Review of Systems: All systems reviewed & are unremarkable except as noted in HPI and below (HPI) Exam Const: General: comfortable and no acute distress Orientation/consciousness: patient oriented x3 GI: Inspection: no abdominal wall ecchymosis, distended and no visible herniation GI Palp: Yes Soft to palpation, Yes Tenderness to palpation present (GI) (Minimal diffuse tenderness), No Guarding due to palpation present (GI), No Hernia present, No Palpable mass present and No Rebound tenderness present Auscultation: normal bowel sounds (Good bowel sounds on auscultation) Neuro: General: patient oriented x3 and no focal motor deficits Extrem: General: no calf tenderness and no edema Psych: Affect: normal affect Insight: Good insight present (Psych) Judgement: Good judgement present (Psych) Objective Data Vital Signs Vital Signs: Vital Signs - 24 hr 09/09/23 20:27 09/09/23 20:39 09/09/23 21:01 Temperature 36.6 C Pulse Rate 98 93 Respiratory Rate 16 18 Blood Pressure 117/76 Pulse Oximetry 98 94 Oxygen Delivery 09/09/23 20:00 09/09/23 20:00 09/09/23 22:00 Temperature Pulse Rate 106 H 90 Respiratory Rate Blood Pressure Pulse Oximetry 94 Oxygen Delivery Room Air 09/10/23 00:00 09/10/23 00:00 09/10/23 00:00 Temperature 37.1 C Pulse Rate 94 93 Respiratory Rate 18 Blood Pressure 114/74 Pulse Oximetry 94 94 Oxygen Delivery Room Air 09/10/23 02:00 09/10/23 04:00 09/10/23 04:00 Temperature 36.3 C L Pulse Rate 89 95 87 Respiratory Rate 18 Blood Pressure 110/84 Pulse Oximetry 94 Oxygen Delivery 09/10/23 04:00 09/10/23 00:00 09/10/23 06:24 Temperature Pulse Rate Respiratory Rate 18 18 Blood Pressure Pulse Oximetry 94 94 94 Oxygen Delivery Room Air 09/10/23 06:00 09/10/23 07:50 09/10/23 09:05 Temperature 36.6 C Pulse Rate 85 96 87 Respiratory Rate 18 Blood Pressure 125/70 Pulse Oximetry 94 Oxygen Delivery 09/10/23 09:14 09/10/23 09:20 09/10/23 12:06 Temperature 36.1 C L Pu
--- NOTE | 2023-09-10 18:33 | PC.NURSE ---
It was observed that the pt's Dilaudid pump was set to 0.2 mg/hr continuous at 1300. The basal rate had been changed to 0.0 mg/hr. IMU/manager contract was notified. Pump was changed to GASTROENTEROLOGY NURSE PRACTITIONER only. Dr Nuñez notified. Pt being monitored.
[2023-09-10] MEDS: traZODone HCL 50 MG TABLET 200 MG PO (20:39)
[2023-09-10 20:43] LABS: Glucose Point of Care 201 mg/dl (65-105)
[2023-09-10 23:55] LABS: Glucose Point of Care 178 mg/dl (65-105)
[2023-09-11] VITALS (17 sets, daily range): BP systolic 106–135; BP diastolic 75–87; PULSE 79–114; RESP 12–20; TEMP 35.9–37.1; O2SAT 95–98
[2023-09-11] MEDS: ONDANSETRON INJ 4 MG/2 ML VIAL IV PUSH (00:06)
[2023-09-11] MEDS: METOCLOPRAMIDE HCL INJ 10 MG/2 ML VIAL IV PUSH ×5 (00:06→22:10)
[2023-09-11 04:31] LABS: Basophils Percent Auto 0.4 % (0.2-1.2); Eosinophils Absolute Auto 0.4 K/mm3 (0-0.3); Eosinophils Percent Auto 6.4 % (0-4.4); Hematocrit 33.2 % (42.0-52.0); Hemoglobin 10.9 g/dL (14.0-18.0); Immature Granulocyte Absolute 0.03 K/mm3 (0.00-0.031); Immature Granulocyte Percent A 0.5 % (0-0.5); Lymphocytes Absolute Auto 0.75 K/mm3 (0.9-3.2); Lymphocytes Percent Auto 13.6 % (18.3-44.2); Mean Corpuscular HGB Conc 32.8 g/dl (32-36); Mean Corpuscular Hemoglobin 29.2 pg (26-34); Mean Platelet Volume 11.5 fl (7.4-10.4); Monocytes Absolute Auto 0.5 K/mm3 (0.1-0.6); Monocytes Percent Auto 9.4 % (2.6-8.5); Neutrophils Absolute Auto 3.8 K/mm3 (1.3-6.7); Neutrophils Percent Auto 69.7 % (45.5-73.1); Platelet Count Result 167 k/mm3 (150-375); Red Blood Count 3.73 M/mm3 (4.6-6.20); Red Cell Distribution Width 13.7 % (11.5-14.5); White Blood Count 5.5 K/mm3 (4.5-10.0)
[2023-09-11 04:48] LABS: Anion Gap 7 mmol/L (8-16); Blood Urea Nitrogen 10 mg/dL (9-20); Calcium 8.6 mg/dL (8.4-10.2); Carbon Dioxide 26 mmol/L (22-30); Chloride 100 mmol/L (98-107); Estimated CRCL calculation 72 ml/min; Estimated Glomerular Filt Rate > 60; Glucose 222 mg/dL (65-110); Magnesium 1.9 mg/dL (1.6-2.3); Phosphorus 2.9 mg/dL (2.5-4.5); Potassium 3.5 mmol/L (3.4-5.0); Sodium 133 mmol/L (137-145)
--- NOTE | 2023-09-11 08:27 | PM.IMPN ---
Progress Note: A&P Assessment and Plan (1) Cholelithiasis: Qualifiers: Biliary obstruction: without biliary obstruction Cholecystitis presence: without cholecystitis Cholelithiasis location: gallbladder Qualified Code(s): K80.20 - Calculus of gallbladder without cholecystitis without obstruction Code(s): K80.20 - Calculus of gallbladder without cholecystitis without obstruction Status: Acute (2) ST elevation (STEMI) myocardial infarction: Qualifiers: Involved coronary artery: unspecified coronary artery Qualified Code(s): I21.3 - ST elevation (STEMI) myocardial infarction of unspecified site Code(s): I21.3 - ST elevation (STEMI) myocardial infarction of unspecified site Status: Acute (3) Acute pancreatitis: Qualifiers: Acute pancreatitis complication: no infection or necrosis Pancreatitis type: biliary Qualified Code(s): K85.10 - Biliary acute pancreatitis without necrosis or infection Code(s): K85.90 - Acute pancreatitis without necrosis or infection, unspecified Status: Acute (4) Pulmonary edema: Code(s): J81.1 - Chronic pulmonary edema Status: Acute (5) Ileus: Code(s): K56.7 - Ileus, unspecified Status: Acute (6) Sepsis: Qualifiers: Sepsis acute organ dysfunction status: unspecified Sepsis type: sepsis due to unspecified organism Qualified Code(s): A41.9 - Sepsis, unspecified organism Code(s): A41.9 - Sepsis, unspecified organism Status: Acute Plan (1) ST elevation (STEMI) myocardial infarction: ?Qualifiers: ?Involved coronary artery:?unspecified coronary artery? Qualified Code(s):?I21.3 - ST elevation (STEMI) myocardial infarction of unspecified site ?Code(s): I21.3 - ST elevation (STEMI) myocardial infarction of unspecified site ?Status:?Acute ?Assessment and Plan: Patient has history of coronary disease non STEMI and PCI of RCA.? Now admitted with STEMI status post angioplasty and suctioning of thrombus in RCA stent was in ICU Off heparin now ?echo Left ventricular systolic function is normal, estimated at 55-60%. The left ventricular diastolic function is grade I diastolic dysfunction. The basal inferior wall is akinetic. The inferoseptal wall, mid inferior wall, basal inferolateral wall, and mid inferolateral wall are hypokinetic. ? Left atrial chamber dimension is mildly enlarged. Appreciate cardiology's consultation, continue Aspirin, beta-rajesh and Brilinta, Statin arrange for close outpatient follow up with Dr. Navarrete on telemetry monitoring ? (2) Acute pancreatitis: ?Qualifiers: ?Acute pancreatitis complication:?no infection or necrosis??Pancreatitis type:?biliary? Qualified Code(s):?K85.10 - Biliary acute pancreatitis without necrosis or infection ?Code(s): K85.90 - Acute pancreatitis without necrosis or infection, unspecified ?Status:?Acute ?Assessment and Plan: Patient has acute pancreatitis likely secondary to gallstones..? he is also on Ozempic which can cause pancreatitis CT scan confirms acute pancreatitis and cholelithiasis but there is no dilatation of duct Bilirubin is normal Right upper quadrant ultrasound Echogenic liver, most commonly due to steatosis but also can be seen with hepatitis and fibrosis. Gallbladder wall thickening and pericholecystic fluid, nonspecific findings in the context of pancreatitis. Negative sonographic Zarco sign, confounded by the concurrent use of pain medication. Lipase has normalized and abdominal pain is improved. NG tube was out and on clear liquid diet09/10 and continue pain control Surgery and GI have evaluated the patient eventually need cholecystectomy advance to full liquid diet? (3) DKA (diabetic ketoacidosis): ?Code(s): E11.10 - Type 2 diabetes mellitus with ketoacidosis without coma ?Status:?Acute ?Assessment and Plan: Patient was in DKA but his anion gap has c
[2023-09-11] MEDS: POTASSIUM CHLORIDE 20 MEQ ER TABLET 40 MEQ PO ×2 (08:47→16:56)
[2023-09-11] MEDS: ATORVASTATIN 40 MG TABLET 80 MG PO (08:47)
[2023-09-11] MEDS: METOPROLOL TARTRATE 12.5 MG TABLET PO ×2 (08:47→22:08)
[2023-09-11] MEDS: ASPIRIN 81 MG ENTERIC TABLET PO (08:47)
[2023-09-11] MEDS: ENOXAPARIN 40 MG/0.4 ML SYRINGE SUB-Q (08:48)
[2023-09-11] MEDS: TICAGRELOR 90 MG TABLET PO ×2 (08:48→22:08)
[2023-09-11] MEDS: PANTOPRAZOLE SODIUM IV 40 MG VIAL IV PUSH (08:48)
[2023-09-11] MEDS: INSULIN ASPART (*BKC) 100 UNITS/ML SUB-Q ×3 (08:50→16:56)
[2023-09-11] MEDS: INSULIN GLARGINE (*BKC) 100 UNITS/ML 10 UNITS SUB-Q (08:55)
[2023-09-11] MEDS: ALBUTEROL SULFATE NEB 2.5 MG/3 ML INH INHALATION (09:03)
[2023-09-11 09:21] LABS: Glucose Point of Care 223 mg/dl (65-105)
[2023-09-11 12:03] LABS: Glucose Point of Care 326 mg/dl (65-105)
[2023-09-11] MEDS: ALPRAZolam (*CRX) 0.5 MG TABLET PO ×2 (12:22→22:10)
--- NOTE | 2023-09-11 15:58 | PM.PNGS ---
Progress Note: A&P Assessment and Plan (1) Ileus: Code(s): K56.7 - Ileus, unspecified Status: Acute Assessment and Plan: Appears to be resolved. Patient had some bowel movements last night. Tolerating full liquids. Will advanced to low-fiber diet. Exam improved and no abdominal pain. (2) Biliary acute pancreatitis without necrosis or infection: Code(s): K85.10 - Biliary acute pancreatitis without necrosis or infection Status: Resolved Assessment and Plan: Biliary pancreatitis has resolved and has been resolved for several days. The associated ileus from this now appears to be resolved. Patient advanced to low-fiber diet today. If tolerates, can be on low-fat diet tomorrow. I have read Dr. Stringer's notes from 09/05 and 09/10, we agree there needs to be smooth transition for continued care of his coronary artery disease. It also appears that this will entail coronary artery bypass grafting. I feel the cholecystectomy would be better done following correction of his coronary anatomy. While he could develop recurrent pancreatitis from gallstones, it would be preferable to have the coronary artery disease optimized by bypass grafting, if that is what is planned, before doing so. (3) ST elevation (STEMI) myocardial infarction: Qualifiers: Involved coronary artery: unspecified coronary artery Qualified Code(s): I21.3 - ST elevation (STEMI) myocardial infarction of unspecified site Code(s): I21.3 - ST elevation (STEMI) myocardial infarction of unspecified site Status: Acute Assessment and Plan: Coronary angioplasty notes reviewed from May and then September 04. (4) Antiplatelet or antithrombotic long-term use: Code(s): Z79.02 - retirement (current) use of antithrombotics/antiplatelets Status: Acute Assessment and Plan: Continues on Brillinta and aspirin. Subjective Subjective Date/Time Seen: 09/11/23 15:58 Patient reports: feels better, pain is less (Denies abdominal pain), tolerating liquids well, bowel movement and afebrile Review of Systems Review of Systems: All systems reviewed & are unremarkable except as noted in HPI and below (HPI) Exam Const: General: cooperative, comfortable, alert and awake Nutritional Appearance: average body habitus Orientation/consciousness: patient oriented x3 GI: Inspection: normal to inspection (Mild distension but much less than yesterday evening.) GI Palp: Yes Soft to palpation, No Tenderness to palpation present (GI), No Guarding due to palpation present (GI), No Hernia present, No Palpable mass present and No Rebound tenderness present Auscultation: normal bowel sounds Objective Data Vital Signs Vital Signs: Vital Signs - 24 hr 09/10/23 16:00 09/10/23 16:31 09/10/23 16:00 Temperature 36.3 C L Pulse Rate 98 84 Respiratory Rate 20 Blood Pressure 115/80 Pulse Oximetry 96 Oxygen Delivery Room Air 09/10/23 18:00 09/10/23 18:00 09/10/23 18:00 Temperature Pulse Rate 92 Respiratory Rate 20 20 Blood Pressure Pulse Oximetry 96 96 Oxygen Delivery 09/10/23 20:00 09/10/23 20:40 09/10/23 20:00 Temperature 36.4 C L Pulse Rate 89 91 89 Respiratory Rate 20 Blood Pressure 118/82 Pulse Oximetry 96 Oxygen Delivery 09/10/23 20:00 09/10/23 20:00 09/10/23 22:00 Temperature Pulse Rate 92 Respiratory Rate 22 H Blood Pressure Pulse Oximetry 96 96 Oxygen Delivery Room Air 09/11/23 00:00 09/11/23 00:00 09/11/23 00:00 Temperature 36.3 C L Pulse Rate 84 82 Respiratory Rate 20 Blood Pressure 106/75 Pulse Oximetry 95 97 Oxygen Delivery Room Air 09/11/23 02:00 09/11/23 04:00 09/11/23 04:00 Temperature 35.9 C L Pulse Rate 85 81 Respiratory Rate 20 Blood Pressure 122/82 Pulse Oximetry 96 96 Oxygen Delivery Room Air 09/11/23 04:00 09/11/23 06:00 09/11/23 07:36 Temperature 36.8 C Pulse Rate 79 8
[2023-09-11 16:25] LABS: Glucose Point of Care 221 mg/dl (65-105)
[2023-09-11] MEDS: HYDROcodone/acetaminophen (*CRX) 5-325 MG TABLET 1 TAB PO (22:09)
[2023-09-11] MEDS: traZODone HCL 50 MG TABLET 200 MG PO (22:09)
[2023-09-12] VITALS (13 sets, daily range): BP systolic 106–122; BP diastolic 61–80; PULSE 73–90; RESP 14–22; TEMP 36.3–36.6; O2SAT 97–100
--- NOTE | 2023-09-12 01:10 | PC.NURSE ---
This patient, Johanna Barbosa, was transferred to [facility] on 09/12/23 at 0110. Personal belongings sent with patient. Report given to Cynthia BARKER. Appropriate documentation sent with patient.
[2023-09-12] MEDS: METOCLOPRAMIDE HCL INJ 10 MG/2 ML VIAL IV PUSH ×2 (05:20→12:40)
[2023-09-12 06:13] LABS: Basophils Percent Auto 0.3 % (0.2-1.2); Eosinophils Absolute Auto 0.5 K/mm3 (0-0.3); Eosinophils Percent Auto 7.4 % (0-4.4); Hematocrit 31.6 % (42.0-52.0); Hemoglobin 10.3 g/dL (14.0-18.0); Immature Granulocyte Absolute 0.05 K/mm3 (0.00-0.031); Immature Granulocyte Percent A 0.8 % (0-0.5); Lymphocytes Percent Auto 12.8 % (18.3-44.2); Mean Corpuscular HGB Conc 32.6 g/dl (32-36); Mean Corpuscular Hemoglobin 29.3 pg (26-34); Mean Platelet Volume 11.2 fl (7.4-10.4); Monocytes Absolute Auto 0.7 K/mm3 (0.1-0.6); Monocytes Percent Auto 10.9 % (2.6-8.5); Neutrophils Absolute Auto 4.2 K/mm3 (1.3-6.7); Neutrophils Percent Auto 67.8 % (45.5-73.1); Platelet Count Result 173 k/mm3 (150-375); Red Blood Count 3.51 M/mm3 (4.6-6.20); Red Cell Distribution Width 13.8 % (11.5-14.5); White Blood Count 6.3 K/mm3 (4.5-10.0)
[2023-09-12 06:24] LABS: Anion Gap 8 mmol/L (8-16); Blood Urea Nitrogen 8 mg/dL (9-20); Calcium 8.6 mg/dL (8.4-10.2); Carbon Dioxide 25 mmol/L (22-30); Chloride 101 mmol/L (98-107); Estimated CRCL calculation 72 ml/min; Estimated Glomerular Filt Rate > 60; Glucose 214 mg/dL (65-110); Magnesium 1.7 mg/dL (1.6-2.3); Phosphorus 3.1 mg/dL (2.5-4.5); Sodium 134 mmol/L (137-145)
--- NOTE | 2023-09-12 07:50 | PM.IMPN ---
Progress Note: A&P Assessment and Plan (1) Cholelithiasis: Qualifiers: Biliary obstruction: without biliary obstruction Cholecystitis presence: without cholecystitis Cholelithiasis location: gallbladder Qualified Code(s): K80.20 - Calculus of gallbladder without cholecystitis without obstruction Code(s): K80.20 - Calculus of gallbladder without cholecystitis without obstruction Status: Acute (2) ST elevation (STEMI) myocardial infarction: Qualifiers: Involved coronary artery: unspecified coronary artery Qualified Code(s): I21.3 - ST elevation (STEMI) myocardial infarction of unspecified site Code(s): I21.3 - ST elevation (STEMI) myocardial infarction of unspecified site Status: Acute (3) Acute pancreatitis: Qualifiers: Acute pancreatitis complication: no infection or necrosis Pancreatitis type: biliary Qualified Code(s): K85.10 - Biliary acute pancreatitis without necrosis or infection Code(s): K85.90 - Acute pancreatitis without necrosis or infection, unspecified Status: Acute (4) Pulmonary edema: Code(s): J81.1 - Chronic pulmonary edema Status: Acute (5) Ileus: Code(s): K56.7 - Ileus, unspecified Status: Acute (6) Sepsis: Qualifiers: Sepsis acute organ dysfunction status: unspecified Sepsis type: sepsis due to unspecified organism Qualified Code(s): A41.9 - Sepsis, unspecified organism Code(s): A41.9 - Sepsis, unspecified organism Status: Acute Plan (1) ST elevation (STEMI) myocardial infarction: ?Qualifiers: ?Involved coronary artery:?unspecified coronary artery? Qualified Code(s):?I21.3 - ST elevation (STEMI) myocardial infarction of unspecified site ?Code(s): I21.3 - ST elevation (STEMI) myocardial infarction of unspecified site ?Status:?Acute ?Assessment and Plan: Patient has history of coronary disease non STEMI and PCI of RCA.? Now admitted with STEMI status post angioplasty and suctioning of thrombus in RCA stent was in ICU Off heparin now ?echo Left ventricular systolic function is normal, estimated at 55-60%. The left ventricular diastolic function is grade I diastolic dysfunction. The basal inferior wall is akinetic. The inferoseptal wall, mid inferior wall, basal inferolateral wall, and mid inferolateral wall are hypokinetic. ? Left atrial chamber dimension is mildly enlarged. Appreciate cardiology's consultation, continue Aspirin, beta-rajesh and Brilinta, Statin arrange for close outpatient follow up with Dr. Navarrete on telemetry monitoring Discussed with Dr. Castillo today, he states pt may not need to be transferred to [facility] for cardiothoracic surgery evaluation because of active abdomen issues, acute pancreatitis, ileus. ? (2) Acute pancreatitis: ?Qualifiers: ?Acute pancreatitis complication:?no infection or necrosis??Pancreatitis type:?biliary? Qualified Code(s):?K85.10 - Biliary acute pancreatitis without necrosis or infection ?Code(s): K85.90 - Acute pancreatitis without necrosis or infection, unspecified ?Status:?Acute ?Assessment and Plan: Patient has acute pancreatitis likely secondary to gallstones..? he is also on Ozempic which can cause pancreatitis CT scan confirms acute pancreatitis and cholelithiasis but there is no dilatation of duct Bilirubin is normal Right upper quadrant ultrasound Echogenic liver, most commonly due to steatosis but also can be seen with hepatitis and fibrosis. Gallbladder wall thickening and pericholecystic fluid, nonspecific findings in the context of pancreatitis. Negative sonographic Zarco sign, confounded by the concurrent use of pain medication. Lipase has normalized and abdominal pain is improved. NG tube was out and on clear liquid diet09/10 and continue pain control Surgery and GI have evaluated the patient eventually need cholecystectomy advance diet per general surgeon (3) DKA
--- NOTE | 2023-09-12 08:47 | PM.PNGS ---
Progress Note: A&P Assessment and Plan (1) Ileus: Code(s): K56.7 - Ileus, unspecified Status: Acute Assessment and Plan: Resolved (2) Biliary acute pancreatitis without necrosis or infection: Code(s): K85.10 - Biliary acute pancreatitis without necrosis or infection Status: Resolved Assessment and Plan: Resolved. Continue per Cardiology until safe to proceed with elective lap tiffanie to prevent recurrent pancreatitis. (3) ST elevation (STEMI) myocardial infarction: Qualifiers: Involved coronary artery: unspecified coronary artery Qualified Code(s): I21.3 - ST elevation (STEMI) myocardial infarction of unspecified site Code(s): I21.3 - ST elevation (STEMI) myocardial infarction of unspecified site Status: Acute Assessment and Plan: Coronary angioplasty notes reviewed from May and then September 04. (4) Antiplatelet or antithrombotic long-term use: Code(s): Z79.02 - halfway (current) use of antithrombotics/antiplatelets Status: Acute Assessment and Plan: Continues on Brillinta and aspirin. Subjective Subjective Date/Time Seen: 09/12/23 08:47 Interval history: Tolerating diet. No abdominal pain. Exam GI: Inspection: non-distended GI Palp: Yes Soft to palpation, No Tenderness to palpation present (GI) and No Guarding due to palpation present (GI) Auscultation: normal bowel sounds Objective Data Vital Signs Vital Signs: Vital Signs - 24 hr 09/11/23 09:06 09/11/23 09:13 09/11/23 11:35 Temperature 37.1 C Pulse Rate 82 86 88 Respiratory Rate 20 20 14 Blood Pressure 130/78 Pulse Oximetry 98 Oxygen Delivery 09/11/23 10:00 09/11/23 12:00 09/11/23 15:18 Temperature 37.0 C Pulse Rate 93 83 88 Respiratory Rate 12 Blood Pressure 119/82 Pulse Oximetry 96 Oxygen Delivery 09/11/23 16:00 09/11/23 19:49 09/11/23 22:08 Temperature 36.4 C Pulse Rate 93 88 86 Respiratory Rate 12 Blood Pressure 128/80 Pulse Oximetry 95 Oxygen Delivery 09/11/23 20:00 09/11/23 20:00 09/12/23 00:00 Temperature Pulse Rate 98 80 Respiratory Rate Blood Pressure Pulse Oximetry 95 Oxygen Delivery Room Air 09/12/23 04:00 09/12/23 05:21 09/12/23 08:00 Temperature 36.6 C Pulse Rate 78 78 73 Respiratory Rate 14 Blood Pressure 122/79 Pulse Oximetry 97 Oxygen Delivery Intake/Output Intake/Output: Intake & Output 09/09/23 09/10/23 09/11/23 09/12/23 23:59 23:59 23:59 23:59 Intake Total 1097 1313.3 2156.7 450 Output Total 3650 1275 603 400 Balance -2553 38.3 1553.7 50 Meds/Results Medications: Active Medications Generic Name Dose Route Start Last Admin Trade Name Freq PRN Reason Stop Dose Admin Hydrocodone Bitart/Acetaminophen 1 tab 09/11/23 11:56 09/11/23 22:09 Hydrocodone/Acetaminophen (*Crx) 5-325 Mg Tablet PO 1 tab Q4H PRN Administration Pain Rated 4-6 Albuterol 2.5 mg 09/05/23 09:52 09/11/23 09:03 Albuterol Sulfate Neb 2.5 Mg/3 Ml Inh INHALATION 2.5 mg Q4HRT PRN Administration Wheezing Alprazolam 0.5 mg 09/11/23 11:55 09/11/23 22:10 Alprazolam (*Crx) 0.5 Mg Tablet PO 0.5 mg Q8HR PRN Administration Anxiety Aspirin 81 mg 09/05/23 08:00 09/11/23 08:47 Aspirin 81 Mg Enteric Tablet PO 81 mg DAILY@0800 ADAMARIS Administration Atorvastatin Calcium 80 mg 09/06/23 09:00 09/11/23 08:47 Atorvastatin 40 Mg Tablet PO 80 mg DAILY ADAMARIS Administration Dextrose 12.5 gm 09/04/23 09:25 Dextrose 50% 25 Gm/50 Ml Syringe IV PUSH PRN PRN Hypoglycemia Protocol Enoxaparin Sodium 40 mg 09/05/23 09:00 09/11/23 08:48 Enoxaparin 40 Mg/0.4 Ml Syringe SUB-Q 40 mg DAILY ADAMARIS Administration Glucagon 1 mg 09/04/23 09:25 Glucagon For Inj 1 Mg Vial IM PRN PRN Hypoglycemia Protocol Glucose 15 gm 09/04/23 09:25 Glucose Oral Gel 15 Gm Of Glucse In 37.5 Gm
[2023-09-12] MEDS: ATORVASTATIN 40 MG TABLET 80 MG PO (09:13)
[2023-09-12] MEDS: METOPROLOL TARTRATE 12.5 MG TABLET PO ×2 (09:13→20:56)
[2023-09-12 09:14] LABS: Glucose Point of Care 295 mg/dl (65-105)
[2023-09-12] MEDS: PANTOPRAZOLE SODIUM IV 40 MG VIAL IV PUSH (09:14)
[2023-09-12] MEDS: ENOXAPARIN 40 MG/0.4 ML SYRINGE SUB-Q (09:14)
[2023-09-12] MEDS: INSULIN GLARGINE (*BKC) 100 UNITS/ML 10 UNITS SUB-Q (09:14)
[2023-09-12] MEDS: ASPIRIN 81 MG ENTERIC TABLET PO (09:14)
[2023-09-12] MEDS: POTASSIUM CHLORIDE 20 MEQ ER TABLET 40 MEQ PO ×2 (09:14→17:23)
[2023-09-12] MEDS: INSULIN ASPART (*BKC) 100 UNITS/ML SUB-Q ×3 (09:15→17:23)
[2023-09-12] MEDS: TICAGRELOR 90 MG TABLET PO ×2 (09:35→20:56)
--- NOTE | 2023-09-12 11:09 | PM.PNCARD ---
Progress Note: A&P Assessment and Plan (1) ST elevation (STEMI) myocardial infarction: Qualifiers: Involved coronary artery: unspecified coronary artery Qualified Code(s): I21.3 - ST elevation (STEMI) myocardial infarction of unspecified site Code(s): I21.3 - ST elevation (STEMI) myocardial infarction of unspecified site Status: Acute Assessment and Plan: 58-year-old man with very complex situation.? He has multivessel coronary disease treated emergently with PTCA of thrombosed RCA stenosis.? This is a heavily calcified lesion which was very difficult to intervene upon in the past.? 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 Unfortunately concurrent to all of this he has significant pancreatitis, presumably gallstone pancreatitis and will likely require surgical treatment.? He has been stable from a cardiac perspective s/p PTCA. Continue DAPT with ASA, Brilinta Continue statin Continue aggressive risk factor modification for CAD Cardiac rehab referral sent Ultimately will require cholecystectomy followed by PCI vs surgical revascularization at a tertiary care center - he has been referred to surgeons at [facility] for this. Subjective Date/time seen: 09/12/23 11:09 Interval history: Cardiology follow up for CAD, STEMI Reports improvement in abdominal pain. 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 NG tube remains in place. No chest pain. Date of service 09/10/2023: Patient is relatively comfortable does have some mild mid abdominal discomfort which is gradually improving. Is now progressing NG tube has been removed he is tolerating clear liquid diet and p.o. medications. Date of service 09/12/23: Feeling much better today. No abdominal pain, nausea, vomiting. Diet has been advanced to low fat diet. No chest pain, shortness of breath. Review of Systems Review of Systems: General: Negative for fever, chills, fatigue Psychological: Negative for anxiety, depression Ophthalmic: negative for loss of vision ENT: Negative for epistaxis, headaches Allergy and immunology: Negative for hives, nasal congestion Hematologic and lymphatic: Negative for overt bleeding problems Endocrine: Negative for hot flashes, palpitations Respiratory: Negative for cough, hemoptysis Cardiovascular: Positive for chest pain Gastrointestinal: positive for abdominal pain, nausea, vomiting Musculoskeletal: Negative for myalgia, joint pains Neurological: Negative for weakness Dermatological: Negative for rash, skin discoloration Exam Const: General: comfortable and no acute distress HENMT: Mouth: Yes moist mucous membranes Eyes: Sclera: sclerae normal Neck: Neck: supple Resp: Effort & Inspection: normal respiratory effort Auscultation: clear to auscultation bilaterally Cardio: Rate: regular rate Rhythm: regular rhythm Heart sounds: S1 normal heart sound present, S2 normal heart sound present and no murmurs Skin: General skin exam: normal color Neuro: Speech: normal speech Other: Alert and oriented x3 Extrem: Right lower extremity: no edema Left lower extremity: no edema Other: Well perfused Psych: Mental Status: mental status grossly normal Affect: normal affect Objective Data Vital Signs Vital Signs: Vital Signs - 24 hr 09/11/23 11:35 09/11/23 12:00 09/11/23 15:18 Temperature 37.1 C 37.0 C Pulse Rate 88 83 88 Respiratory Rate 14 12 Blood Pressure 130/78 119/82 Pulse Oximetry 98 96 Oxygen Delivery 09/11/23 16:00 09/11/23 19:49 09/11/23 22:08 Temperature 36.4 C Pulse Rate 93 88 86 Respiratory Rate 12 Blood Pressure 128/80 Pulse Oximetry 95 Oxygen Delivery 09/11/23 20:00 09/11/23 20:00 09/12/23 00:00 Temperature Pulse Rate 98 80 Respiratory Rate Blood Pressure Pulse Oximetry 95 Oxygen Delivery Room Air 09/12/23 04:00 09/12/23 05:21 09/12/23 08:00
--- NOTE | 2023-09-12 11:44 | PCNFU ---
Nutrition Follow-Up Complete: Inadequate oral intake related to acute pancreatitis, ileus as evidenced by NPO status Goal:Diet advancement as medically able Pt current nutrition is Low fat, Ensure compact BID. Nutrition recommendation: continue with current plan of care Last recorded weight is 78 kg. Bowel Motility: +BM 09/11 Labs Reviewed: Hgb:10.3, HCT:31.6, NA:134, Glu:295 Meds Noted: lovnox, lantus, novolog, reglan skin: WNL Additional Notes: pt diet advanced to low fat, reports tolerating well, good appetite. Drinking Ensure compact. monitoring diet orders, plan of care, weights, labs Follow up in 5 days
[2023-09-12 12:29] LABS: Glucose Point of Care 325 mg/dl (65-105)
[2023-09-12] MEDS: ALBUTEROL SULFATE NEB 2.5 MG/3 ML INH INHALATION (14:23)
[2023-09-12 16:53] LABS: Glucose Point of Care 246 mg/dl (65-105)
[2023-09-12] MEDS: ALPRAZolam (*CRX) 0.5 MG TABLET PO (21:02)
[2023-09-12] MEDS: traZODone HCL 50 MG TABLET 200 MG PO (21:02)
[2023-09-12 21:12] LABS: Glucose Point of Care 310 mg/dl (65-105)
[2023-09-12] MEDS: HYDROcodone/acetaminophen (*CRX) 5-325 MG TABLET 1 TAB PO (22:12)
[2023-09-13 04:34] VITALS: BP 121/74; PULSE 77; RESP 15; TEMP 36.5; O2SAT 96
[2023-09-13] MEDS: HYDROcodone/acetaminophen (*CRX) 5-325 MG TABLET 1 TAB PO (04:51)
[2023-09-13 08:23] LABS: Glucose Point of Care 227 mg/dl (65-105)
[2023-09-13 09:34] VITALS: PULSE 82
[2023-09-13] MEDS: ATORVASTATIN 40 MG TABLET 80 MG PO (09:34)
[2023-09-13] MEDS: ASPIRIN 81 MG ENTERIC TABLET PO (09:34)
[2023-09-13] MEDS: TICAGRELOR 90 MG TABLET PO (09:34)
[2023-09-13] MEDS: METOPROLOL TARTRATE 12.5 MG TABLET PO (09:34)
[2023-09-13] MEDS: PANTOPRAZOLE 40 MG TABLET PO (09:35)
[2023-09-13] MEDS: INSULIN ASPART (*BKC) 100 UNITS/ML SUB-Q ×2 (09:35→12:23)
[2023-09-13] MEDS: INSULIN GLARGINE (*BKC) 100 UNITS/ML 10 UNITS SUB-Q (09:35)
[2023-09-13] MEDS: ENOXAPARIN 40 MG/0.4 ML SYRINGE SUB-Q (09:36)
--- NOTE | 2023-09-13 11:53 | PM.IMPN ---
Progress Note: A&P Assessment and Plan (1) Cholelithiasis: Qualifiers: Biliary obstruction: without biliary obstruction Cholecystitis presence: without cholecystitis Cholelithiasis location: gallbladder Qualified Code(s): K80.20 - Calculus of gallbladder without cholecystitis without obstruction Code(s): K80.20 - Calculus of gallbladder without cholecystitis without obstruction Status: Acute (2) ST elevation (STEMI) myocardial infarction: Qualifiers: Involved coronary artery: unspecified coronary artery Qualified Code(s): I21.3 - ST elevation (STEMI) myocardial infarction of unspecified site Code(s): I21.3 - ST elevation (STEMI) myocardial infarction of unspecified site Status: Acute (3) Acute pancreatitis: Qualifiers: Acute pancreatitis complication: no infection or necrosis Pancreatitis type: biliary Qualified Code(s): K85.10 - Biliary acute pancreatitis without necrosis or infection Code(s): K85.90 - Acute pancreatitis without necrosis or infection, unspecified Status: Acute (4) Pulmonary edema: Code(s): J81.1 - Chronic pulmonary edema Status: Acute (5) Ileus: Code(s): K56.7 - Ileus, unspecified Status: Acute (6) Sepsis: Qualifiers: Sepsis acute organ dysfunction status: unspecified Sepsis type: sepsis due to unspecified organism Qualified Code(s): A41.9 - Sepsis, unspecified organism Code(s): A41.9 - Sepsis, unspecified organism Status: Acute Plan (1) ST elevation (STEMI) myocardial infarction: ?Qualifiers: ?Involved coronary artery:?unspecified coronary artery? Qualified Code(s):?I21.3 - ST elevation (STEMI) myocardial infarction of unspecified site ?Code(s): I21.3 - ST elevation (STEMI) myocardial infarction of unspecified site ?Status:?Acute ?Assessment and Plan: Patient has history of coronary disease non STEMI and PCI of RCA.? Now admitted with STEMI status post angioplasty and suctioning of thrombus in RCA stent was in ICU Off heparin now ?echo Left ventricular systolic function is normal, estimated at 55-60%. The left ventricular diastolic function is grade I diastolic dysfunction. The basal inferior wall is akinetic. The inferoseptal wall, mid inferior wall, basal inferolateral wall, and mid inferolateral wall are hypokinetic. ? Left atrial chamber dimension is mildly enlarged. Appreciate cardiology's consultation, continue Aspirin, beta-rajesh and Brilinta, Statin arrange for close outpatient follow up with Dr. Navarrete on telemetry monitoring Have discussed with Dr. Castillo and Dr. Curry, they don't think pt needs to be transferred to [facility] for cardiothoracic surgery evaluation because of current active abdomen issues,including acute pancreatitis, ileus. ? (2) Acute pancreatitis: ?Qualifiers: ?Acute pancreatitis complication:?no infection or necrosis??Pancreatitis type:?biliary? Qualified Code(s):?K85.10 - Biliary acute pancreatitis without necrosis or infection ?Code(s): K85.90 - Acute pancreatitis without necrosis or infection, unspecified ?Status:?Acute ?Assessment and Plan: Patient has acute pancreatitis likely secondary to gallstones..? he is also on Ozempic which can cause pancreatitis CT scan confirms acute pancreatitis and cholelithiasis but there is no dilatation of duct Bilirubin is normal Right upper quadrant ultrasound Echogenic liver, most commonly due to steatosis but also can be seen with hepatitis and fibrosis. Gallbladder wall thickening and pericholecystic fluid, nonspecific findings in the context of pancreatitis. Negative sonographic Zarco sign, confounded by the concurrent use of pain medication. Lipase has normalized and abdominal pain is improved. NG tube was out and on clear liquid diet09/10 and continue pain control Surgery and GI have evaluated the patient eventually need cholecystectomy advance
--- NOTE | 2023-09-13 12:10 | PM.DS ---
DS: Admitting Diagnosis Discharge Date 09/13/23 Admitting Diagnosis (1) Cholelithiasis: ?Qualifiers: ?Biliary obstruction:?without biliary obstruction??Cholecystitis presence:?without cholecystitis??Cholelithiasis location:?gallbladder? Qualified Code(s):?K80.20 - Calculus of gallbladder without cholecystitis without obstruction ?Code(s): K80.20 - Calculus of gallbladder without cholecystitis without obstruction ?Status:?Acute (2) ST elevation (STEMI) myocardial infarction: ?Qualifiers: ?Involved coronary artery:?unspecified coronary artery? Qualified Code(s):?I21.3 - ST elevation (STEMI) myocardial infarction of unspecified site ?Code(s): I21.3 - ST elevation (STEMI) myocardial infarction of unspecified site ?Status:?Acute (3) Acute pancreatitis: ?Qualifiers: ?Acute pancreatitis complication:?no infection or necrosis??Pancreatitis type:?biliary? Qualified Code(s):?K85.10 - Biliary acute pancreatitis without necrosis or infection ?Code(s): K85.90 - Acute pancreatitis without necrosis or infection, unspecified ?Status:?Acute (4) Pulmonary edema: ?Code(s): J81.1 - Chronic pulmonary edema ?Status:?Acute (5) Ileus: ?Code(s): K56.7 - Ileus, unspecified ?Status:?Acute (6) Sepsis: ?Qualifiers: ?Sepsis acute organ dysfunction status:?unspecified??Sepsis type:?sepsis due to unspecified organism? Qualified Code(s):?A41.9 - Sepsis, unspecified organism ?Code(s): A41.9 - Sepsis, unspecified organism ?Status:?Acute DS: Discharge Diagnosis Discharge Diagnosis (1) Cholelithiasis: Qualifiers: Biliary obstruction: without biliary obstruction Cholecystitis presence: without cholecystitis Cholelithiasis location: gallbladder Qualified Code(s): K80.20 - Calculus of gallbladder without cholecystitis without obstruction Code(s): K80.20 - Calculus of gallbladder without cholecystitis without obstruction Status: Acute (2) ST elevation (STEMI) myocardial infarction: Qualifiers: Involved coronary artery: unspecified coronary artery Qualified Code(s): I21.3 - ST elevation (STEMI) myocardial infarction of unspecified site Code(s): I21.3 - ST elevation (STEMI) myocardial infarction of unspecified site Status: Acute (3) Acute pancreatitis: Qualifiers: Acute pancreatitis complication: no infection or necrosis Pancreatitis type: biliary Qualified Code(s): K85.10 - Biliary acute pancreatitis without necrosis or infection Code(s): K85.90 - Acute pancreatitis without necrosis or infection, unspecified Status: Acute (4) Pulmonary edema: Code(s): J81.1 - Chronic pulmonary edema Status: Acute (5) Ileus: Code(s): K56.7 - Ileus, unspecified Status: Acute (6) Sepsis: Qualifiers: Sepsis acute organ dysfunction status: unspecified Sepsis type: sepsis due to unspecified organism Qualified Code(s): A41.9 - Sepsis, unspecified organism Code(s): A41.9 - Sepsis, unspecified organism Status: Acute DS: Summary Hospital Course Hospital Course: Per H&P, pt is a 58 year old male with a history of CAD, history of non ST-elevation AK, with PCI in 2021. Pt admitted with nausea, vomiting and severe abdominal pains. Pt was flying back from when he felt nauseated on the flight and had severe abdominal pains found to have uncontrolled sugars on admission and CT shows inflammatory changes surrounding the pancreas, representing acute pancreatitis; gallbladder distended containing calculi .?EKG shows ?ST-elevation in the inferior leads with reciprocal ST depression.? with troponin trending to 8Pt taken for emergent heart cath by DR Navarrete etl informatica architect.? The following med issues have been addressed during hospitalization (1) ST elevation (STEMI) myocardial infarction: ?Qualifiers: ?Involved coronary artery:?unspecified coronary
--- NOTE | 2023-09-13 12:15 | PM.DS ---
DS: Admitting Diagnosis Discharge Date 09/13/23 Admitting Diagnosis Chest pain DS: Discharge Diagnosis Discharge Diagnosis (1) ST elevation (STEMI) myocardial infarction: Qualifiers: Involved coronary artery: unspecified coronary artery Qualified Code(s): I21.3 - ST elevation (STEMI) myocardial infarction of unspecified site Code(s): I21.3 - ST elevation (STEMI) myocardial infarction of unspecified site Status: Acute Assessment and Plan: 58-year-old man with very complex situation.? He has multivessel coronary disease treated emergently with PTCA of thrombosed RCA stenosis.? This is a heavily calcified lesion which was very difficult to intervene upon in the past.? 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 Unfortunately concurrent to all of this he has significant pancreatitis, presumably gallstone pancreatitis and will likely require surgical treatment.? He has been stable from a cardiac perspective s/p PTCA. Continue DAPT with ASA, Brilinta Continue statin Continue aggressive risk factor modification for CAD Cardiac rehab referral sent Ultimately will require cholecystectomy followed by PCI vs surgical revascularization at a tertiary care center - he has been referred to surgeons at [facility] for this. DS: Summary Time Spent with Patient Time attestation: Total time spent providing and/or coordinating discharge services: Exam Const: General: comfortable and no acute distress HENMT: Mouth: Yes moist mucous membranes Other: NG in place Eyes: Sclera: sclerae normal Neck: Neck: supple Resp: Effort & Inspection: normal respiratory effort Auscultation: clear to auscultation bilaterally Other: Scattered rhonchi noted Cardio: Rate: regular rate Rhythm: regular rhythm Heart sounds: S1 normal heart sound present, S2 normal heart sound present and no murmurs Other: No murmur no gallop GI: Other: Bowel sounds hypoactive Skin: General skin exam: normal color Neuro: Speech: normal speech Other: Alert and oriented x3 Extrem: Right lower extremity: no edema Left lower extremity: no edema Other: Well perfused Psych: Mental Status: mental status grossly normal Affect: normal affect DS: Data Data Completed and Pending Labs on day of discharge: Labs from last 24 hours 09/13/23 09/12/23 09/12/23 08:08 20:41 16:39 POC Capillary Glucose 227 H 310 H 246 H 09/12/23 12:18 POC Capillary Glucose 325 H Discharge Plan Discharge Attending physician on discharge: Alhaji Curry Consulting providers: Ginny Srivastava; Atul Winters; Jose Guadalupe Ayon; Da Stringer; Kory Liu; Christina Pham; Chandrakant Burns; Radha Manriquez; Alhaji Curry; Ranjit Navarrete; Gerard Arrieta; Praful Griggs; Mary Grace Matt; Jefe Pulliam; Julia Morrell V.; Magdaleno Reagan Discharging Clinician: Radha Manriquez Anticipated Discharge Date/Time: 09/13/23 12:00 Patient Disposition: Home, Self-Care Activity: as tolerated Diet: heart healthy, diabetic and low fat Discharge Instructions: [facility] [address] [place] [address] DISCHARGE INSTRUCTIONS - POST CARDIAC CATH Activity Restriction 1. You may drive 2. No lifting, pushing or pulling more than 10 LBS for 1 week 3. No strenu
[2023-09-13 12:20] LABS: Glucose Point of Care 340 mg/dl (65-105)
--- NOTE | 2023-09-13 18:41 | PC.NURSE ---
call from pt's that they did not have a script for pen needles to give insulin, I will contact pharmacy for them to be able to pick those up
--- OUTSIDE RECORDS SUMMARY | 2023-09-14 09:20 | XMS_ITS | Patient Health Record ---
Author Name Unknown Organization [facility] Address [address] [place] [address] Care Team Providers Care Knifeman Name Role Phone [employer] Primary Care Provider Unavailable REASON FOR REFERRAL No Information MEDICATIONS Medication SIG (Take, Route, Frequency, Duration) Notes Start Date End Date Status Mask Dreamwear Full Face Large/Medium/Smal- per measurement as directed Face application QHS for 99 months Active traZODone HCl 50 MG 1 tablet at bedtime as needed Orally Once a day for 30 day(s) Active Lipitor 10 MG 1 tablet Orally Once a day Active AUTOPAP as directed Active Aspirin 81 MG 1 tablet Orally Once a day Not-Taking glipiZIDE 5 MG 1 tablet 30 minutes before breakfast Orally Once a day Began 09/2019 Not-Taking Lotrel 10-20 MG as directed Orally Not-Taking SOCIAL HISTORY Tobacco Use: Social History Observation Description Date Details (start date - stop date) Never Smoker NA - NA Sex Assigned At : Social History Observation Description Sex Assigned At Unknown Tobacco Use/Smoking Question Answer Notes Are you a nonsmoker Alcohol Screen (Audit-C) Question Answer Notes Did you have a drink
== END 2023-09-13 12:55 | disposition home or self-care (01) | DRG 250 ==
LOC: ANHED 09-04 00:20 → ANHICU 09-04 03:17 → ANH2MED 09-13 12:09 → ANHICU 09-14 09:13 → ANHIMU 09-14 09:13
PROVIDERS: Emergency Medicine; Hospitalist; Internal Medicine; Admitting Provider Internal Medicine Cardiovascular Disease; Emergency Provider Physician Assistant; Visit Provider Internal Medicine Cardiovascular Disease
PROC: 4A023N7 Measurement of Cardiac Sampling and Pressure, Left Heart, Percutaneous Approach (ICD-10-PCS; CPT 93452; principal; 2023-09-04 02:40)
PROC: 02703ZZ Dilation of Coronary Artery, One Artery, Percutaneous Approach (ICD-10-PCS; CPT 92920; 2023-09-04 02:40)
PROC: 02703ZZ Dilation of Coronary Artery, One Artery, Percutaneous Approach (ICD-10-PCS; 2023-09-04 02:40)
DX: T82.867A Thrombosis due to cardiac prosthetic devices, implants and grafts, initial encounter (principal); E11.10 Type 2 diabetes mellitus with ketoacidosis without coma; I21.A9 Other myocardial infarction type; K85.10 Biliary acute pancreatitis without necrosis or infection; J81.1 Chronic pulmonary edema; K56.7 Ileus, unspecified; E78.00 Pure hypercholesterolemia, unspecified; I25.10 Atherosclerotic heart disease of native coronary artery without angina pectoris; I11.9 Hypertensive heart disease without heart failure; E11.9 Type 2 diabetes mellitus without complications; K21.9 Gastro-esophageal reflux disease without esophagitis; F32.A Depression, unspecified; G47.33 Obstructive sleep apnea (adult) (pediatric); Z79.82 Long term (current) use of aspirin; Z79.85 Long-term (current) use of injectable non-insulin antidiabetic drugs; Z79.84 Long term (current) use of oral hypoglycemic drugs; Z79.02 Long term (current) use of antithrombotics/antiplatelets
CPT/HCPCS: 36415; 71045; 74018; 74177; 76705; 80048; 80053; 80061; 81001; 82010; 82948; 83036; 83605; 83690; 83735; 83880; 84100; 84484; 85025; 85027; 85610; 85730; 86850; 86900; 86901; 87086; 87637; 92920; 93005; 93306; 93458; 94640; 96361; 96365; 96375; 99285; A9270; C1725; C1760; C1769; C1887; C1894; C9113; G0269; J0360; J0461; J0583; J1170; J1644; J1650; J1815; J1940; J2060; J2250; J2270; J2305; J2405; J2543; J2765; J3010; J3475; J3480; J7030; J7040; J7050; Q9967